=== PATIENT | female | born 1955 | race Caucasian/White ===

== ENCOUNTER 2019-12-30 20:24 | Emergency (ER) | payer OTHER ==
[~2019-12-30] VITALS: Ht 165.1 cm; Wt 83.9 kg
--- OUTSIDE RECORDS SUMMARY | ~2019-12-30 | XMS | Encounter Summary ---
Demographics + + + | Address | [address] | | | [place] [address] | + + + | Home Phone | | + + + | Preferred Language | Unknown | + + + | Marital Status | Single | + + + | Oriental Orthodox Affiliation | NRP | + + + | Race | White | + + + | Ethnic Group | Not or | + + + Author + + + | Organization | Unknown | + + + | Address | Unknown | + + + | Phone | Unavailable | + + + Support + + +---------+ + | Name | Relationship | Address | Phone | + + +---------+ + | Kiara Jaimes | ECON | Unknown | | + + +---------+ + Care Team Providers + +------+ + | Care Assembler Bicycle Name | Role | Phone | + +------+ + PCP | Unavailable | + +------+ + Encounter Details +--------+ + + + + | Date | Type | Department | Care Team | Description | +--------+ + + + + | 04/08/ | Discharge | | Summary, Discharge | D/C Summary ODDS | | 2001 | Summary-Tra | | | | | | nscribed | | | | +--------+ + + + + Social History + +-------+ +--------+------+ | Tobacco Use | Types | Packs/Day | Years | Date | | | | | Used | | + +-------+ +--------+------+ | Never Assessed | | | | | + +-------+ +--------+------+ + + + | Sex Assigned at | Date Recorded | | | | + + + | Not on file | | + + + + + + + | Job Start Date | Occupation | Industry | + + + + | Not on file | Not on file | Not on file | + + + + + + + + | Travel History | Travel Start | Travel End | + + + + + + | No recent travel history available. | + + documented as of this encounter Discharge Summaries Interface, Road Production General Manager In - 12/13/2005 3:11 AM PDT [facility] [address] [address] [facility] MEDICAL SUMMARY OF HOSPITALIZATION Med Rec No: [id number] Admission Date: 04/05/2002 Name: Helen Mckeon Discharge Date: 04/08/2002 ATTENDING PHYSICIAN:Mika Mitchell M.D. PRINCIPAL FINAL DIAGNOSIS: Herniation of Margarette fundoplication. ADDITIONAL DIAGNOSES: 1. Noninsulin dependent diabetes mellitus. 2. Dysphasia. 3. Gastroesophageal reflux disease (GERD) status post laproscopic Margarette fundoplication in May 2001. PRINCIPAL PROCEDURE: Redo laparoscopic Margarette fundoplication. REASON FOR ADMISSION: The patient is a 46-year-old white female who underwent a laparoscopic Margarette fundoplication in May 2001. She had good results from this operation until she underwent a chiropractic maneuver in January when she began to feel sharp upper gastric pain which was short lived. However after this pain she began having maldysplasia and chest tightness after meals. Work up by her primary care physician showed that she had an intact fundoplication however it had herniated up into her chest. She presented to our clinic to have her fundoplication reconstructed and redone. HOSPITAL COURSE: The patient was admitted on the day of surgery and underwent the above stated procedure without any complications. Please see operative report of April 05, 2002 for full details. Postoperatively she was able to be transferred directly to the [facility]varez where her postoperative course was very benign. She was instructed on a post Margarette diet and was understanding and compliant with this. While in house she was able to tolerate a full liquid diet, ambulate, and her postoperative ileus resolved completely before leaving for home. Her only complaint was some mild headache and some nausea, which was well controlled with medication. While in house her CBGs remained in the normal range on an insulin sliding scale. She was discharged home on postoperative day number three in good condition. She will follow up in Mika Mitchell M.D. clinic in two weeks. DISPOSITION: Home. CONDITION ON DISCHARGE: Good. DISCHARGE MEDICATIONS: 1. Oxycodone elixir 5 mg per 5 mL 5-15 mL q 4 hours p.r.n., dispensed 500 mL. 2. Colace elixir 200 mg p.o. b.i.d., dispensed #120. 3. She is to resume all her previous home medications. DIET: Margarette diet while in the hospital by her dietitian. ACTIVITY: No heaving lifting for six weeks, no lifting anything greater than 10 pounds. FOLLOW UP CARE: The patient is to follow up in general surgery clinic with Mika iMtchell M.D. in two weeks. Kylah Kinney M.D. Mika Mitchell M.D. RM:[id number] C: 05/07/2002 [facility] cc: JOYCE LEON MD [address] [place] [address] [id number] signed by Interface, Road Production General Manager In at 12/13/2005 3:11 AM [facility] Plan of Treatment +--------+ + + + + | Date | Type | Specialty | Care Team | Description | +--------+ + + + + | 11/27/ | Video/TeleH | Otolaryngology | Erik Lambert | | | 2020 | ealth-Sched | | MD Jacoby [address] | | | | uled | | [address] | | | | | | [place], [place] | | | | | | [address] | | | | | | [phone] | | | | | | | | +--------+ + + + + documented as of this encounter Visit Diagnoses Not on filedocumented in this encounter"
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
--- OUTSIDE RECORDS SUMMARY | ~2019-12-30 | XMS | Encounter Summary ---
Demographics + + + | Address | [address] | | | [place] [address] | + + + | Home Phone | | + + + | Preferred Language | Unknown | + + + | Marital Status | Single | + + + | Gnosticism Affiliation | NRP | + + + | Race | White | + + + | Ethnic Group | Not or | + + + Author + + + | Author | [facility] | + + + | Organization | [facility] | + + + | Address | Unknown | + + + | Phone | Unavailable | + + + Support + + +---------+ + | Name | Relationship | Address | Phone | + + +---------+ + | Kiara Jaimes | ECON | Unknown | | + + +---------+ + Care Team Providers + +------+ + | Care Stencil Sprayer Name | Role | Phone | + +------+ + | Meagan Ayala MD | PCP | | + +------+ + Reason for Visit AUTH/CERT +--------+--------+ + + + + | Status | Reason | Specialty | Diagnoses / | Referred By | Referred To | | | | | Procedures | Contact | Contact | +--------+--------+ + + + + | | | | | | | +--------+--------+ + + + + Encounter Details +--------+ + + + + | Date | Type | Department | Care Team | Description | +--------+ + + + + | 02/07/ | Anesthesia | [facility] | Lencho Peralta, | | | 2019 | Event | [facility] | MD Abdon Schwarz | | | | | and Healing Surgery | [address] | | | | | Center Admitting | [place], [place] | | | | | Desk Located on the | [address] | | | | | 4th floor [address] | [phone] | | | | | [address] [place], | | | | | | [place] [address] | Ede Kiran, | | | | | | LOADER ENGINEER [address] | | | | | | [address] | | | | | | [place], [place] | | | | | | [address] | | | | | | [phone] | | | | | | | | +--------+ + + + + Anesthesia Record + + + + + | Procedure Name | Responsible | Anesthesia Start | Anesthesia Stop Time | | | Anesthesiologist | Time | | + + + + + | BILATERAL MAXILLARY | Lencho Peralta MD | 02/07/19 0838 | 02/07/19 1036 | | ANTROSTOMY WITH | | | | | TISSUE REMOVAL, | | | | | BILATERAL TOTAL | | | | | ETHMOIDECTOMY, | | | | | BILATERAL FRONTAL | | | | | SINUSOTOMY, | | | | | BILATERAL | | | | | SPHENOIDOTOMY WITH | | | | | TISSUE REMOVAL, | | | | | BILATERAL MIDDLE | | | | | TURBINATE RESECTION, | | | | | IMAGE | | | | | GUIDANCE-FUSION | | | | | (Bilateral ) | | | | + + + + + +----+---+ + + | Da | T | Event | Comment | | te | i | | | | | m | | | | | e | | | +----+---+ + + | 09 | 0 | Eq Check | Anesthesia machine checked Equipment verified | | /2 | 7 | | | | 3/ | 3 | | | | 20 | 3 | | | | 19 | | | | +----+---+ + + | | 0 | Pt. Check | Prior to anesthesia start, pt. Identified, examined, chart | | | 8 | | reviewed, PARQ held, anesthetic plan made or approved by | | | 0 | | attending anesthesiologist. NPO status confirmed as appropriate | | | 3 | | for procedure Preoperative evaluation: unchanged | +----+---+ + + | | 0 | An Start | | | | 8 | | | | | 3 | | | | | 8 | | | +----+---+ + + | | 0 | An Start | | | | 8 | Data | | | | 4 | | | | | 1 | | | +----+---+ + + | | 0 | Vitals | Monitors applied Vital signs checked Patient ready for anesthesia | | | 8 | Checked | | | | 4 | | | | | 6 | | | +----+---+ + + | | 0 | ETT | | | | 8 | | | | | 5 | | | | | 0 | | | +----+---+ + + | | 0 | Ready | | | | 8 | | | | | 5 | | | | | 1 | | | +----+---+ + + | | 0 | Local | | | | 8 | Anesthetic | | | | 5 | by Surgeon | | | | 5 | | | +----+---+ + + | | 0 | Abx held | Contraindicated, or not indicated for this procedure, or already | | | 8 | Medical or | receiving antibiotics | | | 5 | Surgical | | | | 7 | Reason | | +----+---+ + + | | 0 | An Data Art | Poor EtCO2 waveform. Moved sample line proximal to the HME, now | | | 9 | | with improved waveform. | | | 0 | | | | | 3 | | | +----+---+ + + | | 0 | Timeout | | | | 9 | | | | | 0 | | | | | 4 | | | +----+---+ + + | | 0 | Incision | | | | 9 | | | | | 0 | | | | | 5 | | | +----+---+ + + | | 1 | Surgery end | | | | 0 | | | | | 2 | | | | | 4 | | | +----+---+ + + | | 1 | An Extubate | Neuromuscular function Intact. Pharynx suctioned. Patient obeys | | | 0 | | commands. Adequate pulmonary mechanics. | | | 2 | | | | | 8 | | | +----+---+ + + | | 1 | an stop | | | | 0 | data | | | | 3 | | | | | 1 | | | +----+---+ + + | | 1 | PACU Rpt | | | | 0 | Given | | | | 3 | | | | | 6 | | | +----+---+ + + | | 1 | Anesthesia | | | | 0 | End | | | | 3 | | | | | 6 | | | +----+---+ + + | | 1 | Post-Op | | | | 1 | Page | | | | 4 | | | | | 5 | | | +----+---+ + + +------+ | Meds | +------+ + + + | Name | Total | + + + | midazolam | 2 mg | + + + | fentaNYL | 100 mcg | + + + | lidocaine 2% | 60 mg | + + + | propofol (DIPRIVAN) 200 mg | 200 mg | + + + | propofol (DIPRIVAN) 200 mg | 111,408 mcg | + + + | rocuronium | 50 mg | + + + | ondansetron | 4 mg | + + + | dexamethasone | 10 mg | + + + | neostigmine | 3 mg | + + + | glycopyrrolate | 0.4 mg | + + + | lidocaine 4% LTA | 3 mL | + + + | lactated ringers IV | 600 mL | + + + + + | Name | + + | O2 FR Avance (Total Liters) | + + | N2O FR Avance (l/min) | + + | Air FR Avance (l/min) | + + | Insp Sevo | + + | Et Sevo | + + | EtN2O % | + + | Insp N2O % | + + + + | No blood administrations on file. | + + +--------+ + + + | Type | Details | Placement | Removal | +--------+ + + + | Periph | 02/07/19; Left; Hand; 22 g; | 02/07/19 0000 by | 02/07/19 1430 by | | eral | 02/07/19; 1430; Discharge | Carin Cornelius RN | Diana Toure | | IV | | | [place]cdaniels | +--------+ + + + | ETT | 02/07/19; 0856 (created via | 02/07/19 0856 by | 02/07/19 1028 by | | | procedure documentation); 7; | Lencho Peralta MD | Ede Kiran CRNA | | | Oral; Cuffed; 02/07/19; 1028 | | | +--------+ + + + documented in this encounter Social History + + + +--------+ + | Tobacco Use | Types | Packs/Day | Years | Date | | | | | Used | | + + + +--------+ + | Former Smoker | Cigarettes | | | Quit: 02/01/1989 | + + + +--------+ + + +---+---+---+ | Smokeless Tobacco: | | | | | Never Used | | | | + +---+---+---+ + + +---------+ + | Alcohol Use | Drinks/Week | oz/Week | Comments | + + +---------+ + | Not Currently | | | 1 drink per month | + + +---------+ + + + + | Sex Assigned at [...] + + documented as of this encounter Plan of Treatment +--------+ + + + + | Date | Type | Specialty | Care Team | Description | +--------+ + + + + | 11/27/ | Video/TeleH | Otolaryngology | Erik Lambert | | | 2020 | [facility] | | MD Jacoby [address] | | | | giovany | | [address] | | | | | | [place], [place] | | | | | | [address] | | | | | | [phone] | | | | | | | | +--------+ + + + + documented as of this encounter Procedures + +--------+ + + + | Procedure Name | Priori | Date/Time | Associated Diagnosis | Comments | | | ty | | | | + +--------+ + + + | ANE ETT | Routin | 02/07/2019 | | | | | e | 8:55 AM | | | | | | PDT | | | + +--------+ + + + +---+--------+ | | | | | Proced | | | ure | | | Note - | | | Fabian, | | | Corie | | | ll K, | | | MD - | | | | | | 2018 | | | 8:55 | | | AM PDT | | | | | | AIRWAY | | | | | | MANAGE | | | MENT - | | | | | | ETTInt | | | ubatio | | | n | | | Reason | | | : For | | | surgic | | | al | | | proced | | | urePos | | | itioni | | | ng: | | | Supine | | | Locati | | | on | | | Perfor | | | med:OR | | | | | | OXYGEN | | | ATIONP | | | atient | | | was | | | preoxy | | | genate | | | dNo | | | apneic | | | | | | oxygen | | | ationG | | | rade: | | | Grade | | | 1 - | | | Ventil | | | ated | | | by | | | mask | | | Manual | | | | | | in-Sobia | | | e | | | Stabil | | | izatio | | | n: | | | NoIndu | | | ction: | | | Routin | | | e, | | | withou | | | t | | | Cricoi | | | d | | | Pressu | | | reINTU | | | BATION | | | ATTEMP | | | T | | | 1Blade | | | Type: | | | | | | Warren | | | Blade | | | #: | | | 2Intub | | | ation | | | Adjunc | | | ts: w/ | | | | | | Stylet | | | Laryng | | | oscopi | | | c | | | View: | | | Grade | | | ISurgi | | | aurora | | | Airway | | | : no | | | Surgic | | | al | | | Airway | | | ETT | | | DETAIL | | | SETT | | | Type:S | | | tandar | | | d, | | | Hi-Lo | | | Cuffed | | | Intuba | | | tion | | | Type: | | | OralCu | | | ff | | | Status | | | : | | | Cuffed | | | Size: | | | 7ETT | | | secure | | | d with | | | | | | adhesi | | | ve | | | tapeDe | | | pth at | | | Lip: | | | 22 cm | | | Airway | | | Leak: | | | | | | NoCONF | | | IRMATI | | | ONNumb | | | er of | | | Attemp | | | ts: | | | 1Atrau | | | matic | | | placem | | | entPos | | | itive | | | for | | | EtCO2: | | | Wavefo | | | rm | | | capnog | | | raphyB | | | reath | | | Sounds | | | : | | | Bilate | | | ral | | | and | | | equalN | | | ARRATI | | | VEAtte | | | nding | | | was | | | physic | | | ally | | | presen | | | t for | | | the | | | critic | | | al | | | portio | | | ns of | | | the | | | proced | | | ure as | | | | | | descri | | | bed in | | | the | | | proced | | | ure | | | noteAt | | | tendin | | | g/Auth | | | orizin | | | g | | | Provid | | | er: | | | Corie | | | ll K | | | Fabian, | | | MDPerf | | | orming | | | | | | Provid | | | er: | | | Corie | | | ll K | | | Fabian, | | | MD | +---+--------+ documented in this encounter Visit Diagnoses Not on filedocumented in this encounter Administered Medications + +--------+ +-------+------+------+ | Medication Order | MAR | Action | Dose | Rate | Site | | | Action | Date | | | | + +--------+ +-------+------+------+ | dexamethasone (DECADRON) | Given | 02/08/20 | 10 mg | | | | injection INTRAPROCEDURE PRN, | | 19 8:59 | | | | | Starting Thu02/07/19 at 0859, | | AM PDT | | | | | Until Thu02/07/19 at 1031 | | | | | | + +--------+ +-------+------+------+ +---+---+ | | | +---+---+ + +-------+ +--------+---+---+ | fentaNYL (SUBLIMAZE) injection | Given | 02/08/20 | 50 mcg | | | | INTRAPROCEDURE PRN, Starting Mon | | 10:35 | | | | | 02/07/19 at 0847, Until Mon | | AM PDT | | | | | 02/07/19 at 1031 | | | | | | + +-------+ +--------+---+---+ +-------+ +--------+---+---+ | Given | 02/08/20 | 50 mcg | | | | | 19 8:47 | | | | | | AM PDT | | | | +-------+ +--------+---+---+ +---+---+ | | | +---+---+ + +-------+ +--------+---+---+ | glycopyrrolate (ROBINUL) | Given | 02/08/20 | 0.4 mg | | | | injection INTRAPROCEDURE PRN, | | 19 10:24 | | | | | Starting Thu02/07/19 at 1024, | | AM PDT | | | | | Until Thu02/07/19 at 1031 | | | | | | + +-------+ +--------+---+---+ +---+---+ | | | +---+---+ + + + +---+---+---+ | lactated ringers IV 10 mL/hr, | given by | 02/08/20 | | | | | intravenous, PROCEDURE | | 19 9:06 | | | | | CONTINUOUS, Starting 02/07/19 | anesthes | AM PDT | | | | | at 0715, Until Thu02/07/19 at | iology | | | | | | 2032 | | | | | | + + + +---+---+---+ +---------+ +---+---+---+ | New Bag | 02/08/20 | | | | | | 19 7:33 | | | | | | AM PDT | | | | +---------+ +---+---+---+ +---+---+ | | | +---+---+ + +-------+ +------+---+---+ | lidocaine (LTA) 4 % topical | Given | 02/08/20 | 3 mL | | | | solution INTRAPROCEDURE PRN, | | 19 8:50 | | | | | Starting 02/07/19 at 0850, | | AM PDT | | | | | Until 02/07/19 at 1031 | | | | | | + +-------+ +------+---+---+ +---+---+ | | | +---+---+ + +-------+ +-------+---+---+ | lidocaine PF (XYLOCAINE MPF) 20 | Given | 02/08/20 | 60 mg | | | | mg/mL (2 %) injection | | 19 8:47 | | | | | INTRAPROCEDURE PRN, Starting Mon | | AM PDT | | | | | 02/07/19 at 0847, Until Mon | | | | | | | 02/07/19 at 1031 | | | | | | + +-------+ +-------+---+---+ +---+---+ | | | +---+---+ + +-------+ +------+---+---+ | midazolam (PF) (VERSED) | Given | 02/08/20 | 2 mg | | | | injection INTRAPROCEDURE PRN, | | 19 8:38 | | | | | Starting Mon 19 at 0838, | | AM PDT | | | | | Until Thu02/07/19 at 1031 | | | | | | + +-------+ +------+---+---+ +---+---+ | | | +---+---+ + +-------+ +------+---+---+ | neostigmine (PROSTIGMIN) | Given | 02/08/20 | 3 mg | | | | intravenous, INTRAPROCEDURE PRN, | | 19 10:24 | | | | | Starting Thu02/07/19 at 1024, | | AM PDT | | | | | Until Thu02/07/19 at 1031 | | | | | | + +-------+ +------+---+---+ +---+---+ | | | +---+---+ + +-------+ +------+---+---+ | ondansetron (ZOFRAN) injection | Given | 02/08/20 | 4 mg | | | | INTRAPROCEDURE PRN, Starting Mon | | 19 10:06 | | | | | 02/07/19 at 1006, Until Mon | | AM PDT | | | | | 02/07/19 at 1031 | | | | | | + +-------+ +------+---+---+ +---+---+ | | | +---+---+ + +---------+ +--------+---+---+ | propofol (DIPRIVAN) 200 mg | New Bag | 02/08/20 | 200 mg | | | | INTRAPROCEDURE CONTINUOUS PRN, | | 19 8:47 | | | | | Starting Thu02/07/19 at 0847, | | AM PDT | | | | | Until Thu02/07/19 at 1031 | | | | | | + +---------+ +--------+---+---+ +---+---+ | | | +---+---+ + +---------+ + +---+---+ | propofol (DIPRIVAN) 200 mg | New Bag | 02/08/20 | 20 | | | | INTRAPROCEDURE CONTINUOUS PRN, | | 19 9:00 | mcg/kg/m | | | | Starting Thu02/07/19 at 0900, | | AM PDT | in | | | | Until 02/07/19 at 1031 | | | | | | + +---------+ + +---+---+ +---+---+ | | | +---+---+ + +-------+ +-------+---+---+ | rocuronium injection | Given | 02/08/20 | 50 mg | | | | INTRAPROCEDURE PRN, Starting Mon | | 19 8:47 | | | | | 02/07/19 at 0847, Until Mon | | AM PDT | | | | | 02/07/19 at 1031 | | | | | | + +-------+ +-------+---+---+ +---+---+ | | | +---+---+ documented in this encounter"
--- OUTSIDE RECORDS SUMMARY | ~2019-12-30 | XMS | Encounter Summary ---
Demographics + + + | Address | [address] | | | [place] [address] | + + + | Home Phone | | + + + | Preferred Language | Unknown | + + + | Marital Status | Single | + + + | Orthodoxy Affiliation | NRP | + + + | Race | White | + + + | Ethnic Group | Not or | + + + Author + + + | Author | [facility] | + + + | Organization | [facility] | + + + | Address | Unknown | + + + | Phone | Unavailable | + + + Support + + +---------+ + | Name | Relationship | Address | Phone | + + +---------+ + | Kiara Jaimes | ECON | Unknown | | + + +---------+ + Care Team Providers + +------+ + | Care Kier Drier Name | Role | Phone | + +------+ + | Meagan Ayala MD | PCP | | + +------+ + Reason for Visit + + + | Reason | Comments | + + + | Follow-up visit | | + + + Consultation (Routine) + +--------+ + + + + | Status | Reason | Specialty | Diagnoses / | Referred By | Referred To | | | | | Procedures | Contact | Contact | + +--------+ + + + + | Authorized | | Otolaryngolog | | [facility] | | | | y | | Epic Dept | [facility] [address] | | | | | | [address] | | | | | | | [facility] | | | | | | [facility] and | | | | | | | Healing, | | | | | | | Building [address], | | | | | | | 5th Floor | | | | | | | [place], [place] | | | | | | | [address] | | | | | | | Phone: | | | | | | | [phone] | | | | | | | Fax: | | | | | | | [phone] | + +--------+ + + + + Encounter Details +--------+---------+ + + + | Date | Type | Department | Care Team | Description | +--------+---------+ + + + | 07/05/ | Office | [facility] | Erik Lambert | Chronic pansinusitis | | 2019 | Visit | Center at [facility] [address] | [facility] [address] | (Primary Dx) | | | | [address] | [address] | | | | | for Health and | [place], [place] | | | | | Healing, [address], | [address] | | | | | [address] [place] [address] | [phone] | | | | | [place], [place] | | | | | | [address] | | | | | | [phone] | | | +--------+---------+ + + + Social History + + + +--------+ + [...] documented as of this encounter Progress Notes Kayy Cohen MD - 07/05/2019 1:15 PM PSTFormatting of this note might be different from t narinder original. [facility] HISTORY: Helen Bray is a 63 y.o. female who presents to the [facility] for fo llow up of Chronic rhinosinusitis. She is s/p revision FESS 02/07/19. She reports nasal con gestion and facial pressure have improved but still having persistent post nasal drip and co ugh. She is currently using budesonide rinses 1 mg BID. She is also taking azithromycin for muco stasis. SNOT 22: 50 Current Outpatient Medications Medication Sig acetylcysteine (NAC) 600 mg oral capsule Take 600 mg by mouth two times daily. acyclovir 200 mg oral capsule Take 400 mg by mouth once daily. ascorbic acid/collagen hydr (COLLAGEN PLUS VITAMIN C ORAL) Take 1 tablet by mouth once daily. azithromycin (ZITHROMAX) 250 mg oral tablet Take 1 tablet by mouth once daily. Budesonide 1 mg/2 mL inhalation suspension for nebulization 250mL saline mixed with 4mL budesonide daily Ca carb-Ca gluc-Mg ox-Mg gluco (CALCIUM MAGNESIUM) 500 mg calcium -250 mg oral tablet T tiffany 1 tablet by mouth once daily at bedtime. charcoal/calcium carbonate (ACTIVATED CHARCOAL-CALCIUM CAR ORAL) Take 1 tablet by mouth once daily. D-MANNOSE ORAL Take 1 tablet by mouth once daily. insulin glargine U-300 conc (TOUJEO MAX U-300 SOLOSTAR) 300 unit/mL (3 mL) subcutaneous insulin pen Inject 18 Units under the skin (SUBC) once daily. L-LYSINE ORAL Take 1 tablet by mouth once daily. Lactobac no.41/Bifidobact no.7 (PROBIOTIC-10 ORAL) Take 1 tablet by mouth once daily. liraglutide (VICTOZA 2-CHERRY) 0.6 mg/0.1 mL (18 mg/3 mL) subcutaneous pen injector Inject 1.8 mg under the skin (SUBC). losartan 25 mg oral tablet Take 25 mg by mouth once daily. LOVASTATIN ORAL Take 40 mg by mouth once daily. MAGNESIUM OXIDE ORAL Take 400 mg by mouth once daily at bedtime. methylPREDNISolone (MEDROL (CHERRY)) 4 mg oral tablets,dose pack Take 1 kit by mouth Use a s directed. Take daily with food:day 1=6 tabs,day 2=5 tabs,day 3=4 tabs,day 4=3 tabs,day 5=2 tabs,day 6=1 tab. multivitamin oral tablet Take 1 tablet by mouth once daily. omeprazole 40 mg oral capsule,delayed release(DR/EC) Take 40 mg by mouth once daily. Ad seo intern 30 to 60 minutes before meals Oregano Oil 1,500 mg oral capsule Take 1 tablet by mouth once daily. pioglitazone (ACTOS) 30 mg oral tablet Take 30 mg by mouth once daily. predniSONE 10 mg oral tablet Take 3 tablets x 4 days, 2 tablets x 4 days, 1 tablet x 4 days. Zinc 50 mg oral tablet Take 50 mg by mouth once daily. PHYSICAL EXAM: Ear, nose, and throat exam reveals a pleasant, well-developed, well-nourish ed patient, in no apparent distress. Voice quality is within normal limits. Anterior rhinos copy reveals mucosa with no significant signs of erythema or inflammation. No polyps or pur ulence are noted. External auditory canal on right is clear, TM is clear. Left EAC is filled with extruded tube and cerumen, unable to see TM. IMPRESSION/PLAN: Helen Bray is a 63 y.o. female who presents to the [facility] for follow up of Chronic rhinosinusitis. She is doing well though with persistent mucostas is and post nasal drip. Will continue budesonide rinses twice daily and azithromycin. Will a lso add Astelin for post nasal drip. PLAN: -Continue budesonide rinses BID and azithromycin -Astelin for post nasal drip -Follow up in 8 weeks Kayy Valiente MD I have personally seen and examined the patient. I have repeated all relevant portions of the history, physical exam and procedures. I have discussed the plan with the resident. Alexandro london necessary changes have been made to their note above. MEDICAL DECISION MAKING: We have taken the multiple sources of information gathered from ou r visit today and have discussed that in the perspective of a possible treatment plan. We h ave discussed options and the risks, benefits, and various alternative as outlined in Dr. Ivan mercer's note above. PROCEDURE: Diagnostic Nasal Endoscopy Anesthesia: Lidocaine 4% topical anesthetic was placed. Description of Procedure: A rigid endoscope was utilized to evaluate the sinonasal cavitie s, mucosa, sinus ostia and turbinates. Sinuses are patent, no polyps or purulence. She does have evidence of mucostasis in bilateral maxillary sinuses. We have spent at least 25 minutes time in counseling on the disease process, treatment opti ons, and ramifications. More than half of the visit was spent discussing the diagnosis, sascha tment options and prognosis. ERIK LAMBERT MD documented in th is encounter Plan of Treatment +--------+ + + + + | Date | Type | Specialty | Care Team | Description | +--------+ + + + + | 11/27/ | Video/TeleH | Otolaryngology | Erik Lambert | | | 2020 | [facility] | | MD Jacoby [address] | | | | uled | | [address] | | | | | | [place], [place] | | | | | | [address] | | | | | | [phone] | | | | | | | | +--------+ + + + + documented as of this encounter Procedures + +--------+ + + + | Procedure Name | Priori | Date/Time | Associated Diagnosis | Comments | | | ty | | | | + +--------+ + + + | FL NASAL | Routin | 07/06/2019 | Chronic | | | ENDOSCOPY,DX | e | 6:59 AM | pansinusitis | | | | | PST | | | + +--------+ + + + documented in this encounter Visit Diagnoses + + | Diagnosis | + + | Chronic pansinusitis - Primary Other chronic sinusitis | + + documented in this encounter"
--- OUTSIDE RECORDS SUMMARY | ~2019-12-30 | XMS | Encounter Summary ---
Demographics + + + | Address | [address] | | | [place] [address] | + + + | Home Phone | | + + + | Preferred Language | Unknown | + + + | Marital Status | Single | + + + | Anabaptist Affiliation | NRP | + + + | Race | White | + + + | Ethnic Group | Not or | + + + Author + + + | Author | [facility] | + + + | Organization | [facility] | + + + | Address | Unknown | + + + | Phone | Unavailable | + + + Support + + +---------+ + | Name | Relationship | Address | Phone | + + +---------+ + | Kiara Jaimes | ECON | Unknown | | + + +---------+ + Care Team Providers + +------+ + | Care Event Set Up Specialist Name | Role | Phone | + +------+ + | Meagan Ayala MD | PCP | | + +------+ + Encounter Details +--------+ + + + + | Date | Type | Department | Care Team | Description | +--------+ + + + + | 07/01/ | Outside | UNKNOWN DEPARTMENT | Other, Faculty | | | 2018 | Records | [address] | [phone] | | | | | [address] | | | | | | [place], [place] | | | | | | [address] | | | +--------+ + + + [...] Erik Lambert | | | 2020 | [facility] | | MD Jacoby [address] | | | | [address] | | [address] | | | | | | [place], [place] | | | | | | [address] | | | | | | [phone] | | | | | | | | +--------+ + + + + documented as of this encounter Procedures + +--------+ + + + | Procedure Name | Priori | Date/Time | Associated Diagnosis | Comments | | | ty | | | | + +--------+ + + + | OUTSIDE RADIOLOGY - | | 07/01/2017 | | Results for this | | CT | | 12:00 AM | | procedure are in the | | | | PST | | results section. | + +--------+ + + + documented in this encounter Results OUTSIDE RADIOLOGY - CT (07/01/2017 12:00 AM PST) + + + | Narrative | Performed At | + + + | | | + + + documented in this encounter Visit Diagnoses Not on filedocumented in this encounter"
--- OUTSIDE RECORDS SUMMARY | ~2019-12-30 | XMS | Encounter Summary ---
Demographics + + + | Address | [address] | | | [place] [address] | + + + | Home Phone | | + + + | Preferred Language | Unknown | + + + | Marital Status | Single | + + + | Presybeterian Affiliation | NRP | + + + [...] Team Providers + +------+ + | Care Drywall Contractor Name | Role | Phone | + +------+ + | Meagan Ayala MD | [place] | | + +------+ + Encounter Details +--------+--------+ + + + | Date | Type | Department | Care Team | Description | +--------+--------+ + + + | 04/26/ | Travel | | | | | 2019 | | | | | +--------+--------+ + + + Social History + + [...] 2020 | [facility] | | MD Jacoby [address] | | | | [address] | | [address] | | | | | | [place], [place] | | | | | | [address] | | | | | | [phone] | | | | | | | | +--------+ + + + + documented as of this encounter Visit Diagnoses Not on filedocumented in this encounter"
--- OUTSIDE RECORDS SUMMARY | ~2019-12-30 | XMS | Encounter Summary ---
Demographics + + + | Address | [address] | | | [place] [address] | + + + | Home Phone | | + + + | Preferred Language | Unknown | + + + | Marital Status | Single | + + + | Mormon Affiliation | NRP | + + + [...] Team Providers + +------+ + | Care Early Childhood Education Worker Name | Role | Phone | + +------+ + PCP | Unavailable | + +------+ + Encounter Details +--------+ + + + + | Date | Type | Department | Care Team | Description | +--------+ + + + + | 02/15/ | Office | | Note, Outpatient | Progress Note | | 2002 | Visit-Trans | | Clinic | | | | cribed | | | | +--------+ + + [...] documented as of this encounter Progress Notes Interface, Inclusion Specialist In - 10/31/2005 1:10 AM PDTClinic Date: 02/15/2003 Clinic: [facility] Subjective: Helen is a 47-year-old female who underwent a laparoscopic Margarette fundoplication back in June 2001 which unfortunately developed recurrent symptoms of reflux and herniation above the diaphragm. She underwent a revision of her fundoplication back in March 2002. Postoperatively, she complained of excessive bloating and had abdominal discomfort for which she was tried on erythromycin. This initially helped for about 1 to 2 months but eventually lost its effectiveness, and she has since stopped taking that. She comes back to clinic for follow up secondary to continued fullness and swelling in her neck which she experiences throughout the day. She complains of intermittent abdominal discomfort and pain. She does have intermittent symptoms of constipation. She does have diabetes as she has had for about 15 years, controlled on oral medication. She had an upper GI that was done on February 12, 2003, which showed no evidence of reflux. There was incidental finding of a 2-cm duodenal diverticulum from the second portion of the duodenum. There was no evidence of mucosal abnormality of the stomach and no suggestion of ulceration was noted. Physical Examination General: She is a well-nourished and well-developed female in no apparent distress. Cardiovascular: Regular rate and rhythm with no rubs, murmurs, or gallops. Pulmonary: Clear to auscultation bilaterally. Abdomen: Soft and nontender. Incisions are well healed. There is a small scar nodule beneath her subxiphoid incision. Extremities: No clubbing, cyanosis, or edema. Full range of motion. Assessment and Plan: This is a 47-year-old female with status post redo laparoscopic Margarette fundoplication with continued upper GI symptoms including fullness and swelling of her neck and intermittent abdominal discomfort and pain. Given her extensive history of diabetes, it is felt that gastroparesis could contribute to her symptoms. She was given a prescription of Reglan. She was told to try Reglan for about 2 weeks to see if that improves her symptoms. If her symptoms do not improve, she is to call the clinic and a trial of Zelnorm will be given. For her esophageal fullness and swelling sensation that she feels, a modified barium swallow will be ordered to evaluate her swallowing. It was discussed with the patient the possibility of needing serial dilation of her esophagus and also possible future history of pyloroplasty versus revision of her Margarette fundoplication through a partial wrap Margarette. This option is of course a possibility in the future if she fails medical management. The patient also states that she has anemia that was found by her primary care physician. This anemia of course needs to be worked up with a possible need for endoscopy to evaluate for gastritis or ulcers. Her upper GI series however did not notice any obvious stomach mucosal abnormalities or ulcers. Suzette Scanlon M.D. Mika Mitchell M.D. / HS [id number] / [id number] / [id number] / [id number] cc: Rosendo Lang M.D. [facility] [address] [place] [place] [address] [facility] [address] [facility] [place] [id number] signed by Interface, Inclusion Specialist In at 10/31/2005 1:10 AM PDTdocumented in this encounter Plan of Treatment +--------+ + + + + | Date | Type | Specialty | Care Team | Description | +--------+ + + + + | 11/27/ | Video/TeleH | Otolaryngology | Erik Lambert | | | 2020 | ana-Sched | | MD Jacoby [address] | | | | uled | | [address] | | | | | | [place], [place] | | | | | | [address] | | | | | | [phone] | | | | | | | | +--------+ + + + + documented as of this encounter Visit Diagnoses Not on filedocumented in this encounter"
--- OUTSIDE RECORDS SUMMARY | ~2019-12-30 | XMS | Encounter Summary ---
Demographics + + + | Address | [address] | | | [place] [address] | + + + | Home Phone | | + + + | Preferred Language | Unknown | + + + | Marital Status | Single | + + + | Adventist Affiliation | NRP | + + + [...] Team Providers + +------+ + | Care Machine Lead Burner Name | Role | Phone | + +------+ + PCP | Unavailable | + +------+ + Encounter Details +--------+ + + + + | Date | Type | Department | Care Team | Description | +--------+ + + + + | 03/03/ | Office | | Note, Outpatient | [...] as of this encounter Progress Notes Interface, Showcase Trimmer In - 10/31/2005 1:10 AM PDTClinic Date: 03/03/2003 Clinic: [facility] Subjective: Ms. Mckeon is a 47-year-old woman who has undergone a fundoplication approximately 2 years ago and a revision about 11 months ago. She reports a persistent globus sensation. She has no complaints of difficulty with swallowing. She has no complaints or regurgitation or reflux. She reports a consistent feeling of something in her throat, her throat being swollen. She does not wake up in the middle of the night coughing nor has any complaints of poor esophageal motility. She underwent an upper GI in January 2003. There was no reflux noted at this exam in January 2003. Modified Barium Swallow: The patient was viewed while standing in the anterior/posterior position. She was given thin and thick liquid barium, thick purees, as well as fruit cocktail, all impregnated with barium. Oral Phase: Good bolus manipulation with anterior to posterior transit timely. Pharyngeal Phase: The patient piecemeal swallows and allows some part of the bolus to transcend into the pharynx prior to initiating the pharyngeal phase. There is no penetration or aspiration noted on any texture consistency. Prompt initiation of the pharyngeal phase with good pharyngeal contraction, laryngeal elevation, and epiglottic deflection, all appeared within normal limits. There is prompt opening of the cricopharyngeus and transcend to the esophagus. It does appear to be elongated cricopharyngeus muscle; however, it relaxes completely, and there does not appear to be any spasm or stenosis present. During challenging activities, the patient swallowed very well. She had no signs or symptoms of dysphagia. Assessment and Plan: The patient has normal oropharyngeal swallow. There does not appear to be any dysphagia. There were no episodes of penetration or aspiration on any texture consistency given. This does not explain the patient's globus sensation. The patient does not have any vocal complaints nor does she have any frequent throat clearing or poor vocal technique that could contribute to a globus sensation. We are at a loss to explain this, and we did show the results of this examination, and the patient was relieved that she had a normal modified barium swallow, and we can proceed with her evaluation as her primary care physician recommends to further evaluate her foreign body sensation. There are no plans to follow up with this patient at this time. The patient is to continue her regular diet. Bibi Aguila, Ph.D., ANGELO-BOWLING BALL MARKER JOCELYN / HS [id number] / [id number] / [id number] / [id number] Tdocumented in this encounter Plan of Treatment +--------+ + + + + | Date | Type | Specialty | Care Team | Description | +--------+ + + + + | 11/27/ | Video/TeleH | Otolaryngology | Erik Lambert | | | 2020 | anah-Sched | | MD Jacoby [address] | | | | giovany | | [address] | | | | | | [place], [place] | | | | | | [address] | | | | | | [phone] | | | | | | | | +--------+ + + + + documented as of this encounter Visit Diagnoses Not on filedocumented in this encounter"
--- OUTSIDE RECORDS SUMMARY | ~2019-12-30 | XMS | Encounter Summary ---
Demographics + + + | Address | [address] | | | [place] [address] | + + + | Home Phone | | + + + | Preferred Language | Unknown | + + + | Marital Status | Single | + + + | Methodist Affiliation | NRP | + + + [...] Team Providers + +------+ + | Care Hotel Dining Room Cashier Name | Role | Phone | + [...] as of this encounter Progress Notes Interface, Mining Technician In - 10/31/2005 1:10 AM PDTClinic Date: 03/03/2003 Clinic: [facility] Subjective: Ms. Mckeon [...] continue her regular diet. Bibi Aguila, Ph.D., ANGELO-MERCHANDISING STOCK ASSOCIATE JOCELYN / HS [id number] / [id number] / [id number] / [id number] Tdocumented in this encounter Plan of Treatment +--------+ + + + + | Date | Type | Specialty | Care Team | Description | +--------+ + + + + | 11/27/ | Video/TeleH | Otolaryngology | Erik Lambert | | | 2020 | anah-Sched | | MD Jacoby [address] | | | | giovany | | [address] | | | | | | [place], [place] | | | | | | [address] | | | | | | [phone] | | | | | | | | +--------+ + + + + documented as of this encounter Visit Diagnoses Not on filedocumented in this encounter"
--- OUTSIDE RECORDS SUMMARY | ~2019-12-30 | XMS | Encounter Summary ---
Demographics + + + | Address | [address] | | | [place] [address] | + + + | Home Phone | | + + + | Preferred Language | Unknown | + + + | Marital Status | Single | + + + | Hoahaoism Affiliation | NRP | + + + [...] Team Providers + +------+ + | Care Cyanide Furnace Operator Name | Role | Phone | + +------+ + PCP | Unavailable | + +------+ + Encounter Details +--------+ + + + + | Date | Type | Department | Care Team | Description | +--------+ + + + + | 04/07/ | Results | | Kylah Kinney, | | | 2001 | Only | | [address] | | | | | | [address] | | | | | | [place] [address] | | | | | | [phone] | | +--------+ + + + + [...] Erik Lambert | | | 2020 | marcus-Sched | | MD Jacoby [address] | | | | giovany | | [address] | | | | | | [place], [place] | | | | | | [address] | | | | | | [phone] | | | | | | | | +--------+ + + + + documented as of this encounter Procedures + +--------+ + + + | Procedure Name | Priori | Date/Time | Associated Diagnosis | Comments | | | ty | | | | + +--------+ + + + | BASIC METABOLIC SET | Routin | 04/07/2002 | | Results for this | | (NA, K, CL, TCO2, | e | 8:40 AM | | procedure are in the | | BUN, CR, GLU, CA) | | PST | | results section. | + +--------+ + + + | PHOSPHORUS, PLASMA | Routin | 04/07/2002 | | Results for this | | | e | 8:40 AM | | procedure are in the | | | | PST | | results section. | + +--------+ + + + | MAGNESIUM, PLASMA | Routin | 04/07/2002 | | Results for this | | | e | 8:40 AM | | procedure are in the | | | | PST | | results section. | + +--------+ + + + documented in this encounter Results BASIC METABOLIC SET (04/07/2002 8:40 AM PST) + +---------+ + + + | Component | Value | Ref Range | Performed | Pathologist | | | | | At | Signature | + +---------+ + + + | GLUCOSE, | 177 (H) | 65 - 110 mg/dL | [facility] | | | PLASMA | | | DEPARTMENT | | | (LAB) | | | OF | | | | | | PATHOLOGY | | + +---------+ + + + | BUN, PLASMA | 5 (L) | 6 - 20 mg/dL | [facility] | | | (LAB) | | | DEPARTMENT | | | | | | OF | | | | | | PATHOLOGY | | + +---------+ + + + | CREATININE | 0.9 | 0.6 - 1.1 mg/dL | [facility] | | | PLASMA | | | DEPARTMENT | | | (LAB) | | | OF | | | | | | PATHOLOGY | | + +---------+ + + + | SODIUM, | 134 (L) | 136 - 145 | [facility] | | | PLASMA | | mmol/L | DEPARTMENT | | | (LAB) | | | OF | | | | | | PATHOLOGY | | + +---------+ + + + | POTASSIUM, | 3.4 (L) | 3.5 - 5.1 | [facility] | | | PLASMA | | mmol/L | DEPARTMENT | | | (LAB) | | | OF | | | | | | PATHOLOGY | | + +---------+ + + + | CHLORIDE, | 100 | 98 - 107 mmol/L | [facility] | | | PLASMA | | | DEPARTMENT | | | (LAB) | | | OF | | | | | | PATHOLOGY | | + +---------+ + + + | TOTAL CO2, | 28 | 23 - 29 mmol/L | [facility] | | | PLASMA | | | DEPARTMENT | | | (LAB) | | | OF | | | | | | PATHOLOGY | | + +---------+ + + + | CALCIUM, | 8.5 | 8.5 - 10.5 | [facility] | | | PLASMA | | mg/dL | DEPARTMENT | | | (LAB) | | | OF | | | | | | PATHOLOGY | | + +---------+ + + + + + | Specimen | + + | | + + + + + + + | Performing | Address | City/State/Zipcode | Phone Number | | Organization | | | | + + + + + | [facility] | [address] | [place] [address] | | | PATHOLOGY | [address] | | | + + + + + | [facility] | [address] | [place] [address] | | | PATHOLOGY | [address] | | | + + + + + MAGNESIUM, PLASMA (04/07/2002 8:40 AM PST) + +---------+ + + + | Component | Value | Ref Range | Performed | Pathologist | | | | | At | Signature | + +---------+ + + + | MAGNESIUM,P | 1.7 (L) | 1.8 - 2.5 mg/dL | [facility] | | | LASMA | | | DEPARTMENT | | | | | | OF | | | | | | PATHOLOGY | | + +---------+ + + + + + | Specimen | + + | | + + + + + + + | Performing | Address | City/State/Zipcode | Phone Number | | Organization | | | | + + + + + | [facility] | [address] | [place] [address] | | | PATHOLOGY | [address] | | | + + + + + | [facility] | [address] | [place] [address] | | | PATHOLOGY | [address] | | | + + + + + PHOSPHORUS, PLASMA (04/07/2002 8:40 AM PST) + +-------+ + + + | Component | Value | Ref Range | Performed | Pathologist | | | | | At | Signature | + +-------+ + + + | PHOSPHORUS, | 2.7 | 2.4 - 4.7 mg/dL | [facility] | | | PLASMA | | | DEPARTMENT | | | (LAB) | | | OF | | | | | | PATHOLOGY | | + +-------+ + + + + + | Specimen | + + | | + + + + + + + | Performing | Address | City/State/Zipcode | Phone Number | | Organization | | | | + + + + + | [facility] | [address] | [place] [address] | | | PATHOLOGY | [address] | | | + + + + + | [facility] DE[facility] | [address] | [place] [address] | | | PATHOLOGY | [address] | | | + + + + + documented in this encounter Visit Diagnoses Not on filedocumented in this encounter"
--- OUTSIDE RECORDS SUMMARY | ~2019-12-30 | XMS | Encounter Summary ---
Demographics + + + | Address | [address] | | | [place] [address] | + + + | Home Phone | | + + + | Preferred Language | Unknown | + + + | Marital Status | Single | + + + | Synagogue Affiliation | NRP | + + + | Race | White | + + + | Ethnic Group | Not or | + + + Author + + + | Author | [facility] | + + + | Organization | [facility] | + + + | Address | Unknown | + + + | Phone | Unavailable | + + + Support + + +---------+ + | Name | Relationship | Address | Phone | + + +---------+ + | Kiara Jaimes | ECON | Unknown | | + + +---------+ + Care Team Providers + +------+ + | Care Food Specialist Name | Role | Phone | + +------+ + PCP | Unavailable | + +------+ + Encounter Details +--------+ + + + + | Date | Type | Department | Care Team | Description | +--------+ + + + + | 08/04/ | Mid Level Business Analyst | Pulmonary & | Lavinia Stephen, | Dyspnea, unspecified | | 2019 | | Critical Care | ANP [address] | type (Primary Dx) | | | | Medicine at | [facility] | | | | | [facility] | [place], [place] | | | | | [address] | [address] | | | | | [address] [facility] | [phone] | | | | | Pavilion, 3rd Floor | | | | | | [place], [place] | | | | | | [address] | | | | | | [phone] | | | +--------+ + + + [...] 2020 | ealth-Sched | | MD Jacoby [address] | | | | giovany | | [address] | | | | | | [facility], [place] | | | | | | [address] | | | | | | [phone] | | | | | | | | +--------+ + + + + + +---------+--------+ + + | Name | Type | Priori | Associated Diagnoses | Order Schedule | | | | ty | | | + +---------+--------+ + + | X-RAY CHEST 2 VIEW | Imaging | Routin | Dyspnea, | Expected: 11/05/2018 | | | | e | unspecified type | (Approximate), | | | | | | Expires: 02/06/2020 | + +---------+--------+ + + documented as of this encounter Results SPIROMETRY BEFORE / AFTER BRONCHODIL, PULM FUNCTION LAB (12/22/2018 8:04 AM PDT) + + + + + + | Component | Value | Ref Range | Performed | Pathologist | | | | | At | Signature | + + + + + + | PULMONARY | Site: [facility] and | | [facility] | | | INTERPRETAT | [facility] | | SPECIAL | | | ION | [facility] | | DIAGNOSTICS | | | | Rd,[place], [place], | | - | | | | [address]TU: [id number] | | PULMONARY | | | | Name: HELEN SHAH | | FUNCTION | | | | MVisit Date: 12/22/2018 | | | | | | Second ID: | | | | | | [id number]: | | | | | | Chele Tillman: 63 | | | | | | : 1955 Sex: | | | | | | Female Race: | | | | | | CaucasianHeight: 163.50 | | | | | | Cms Weight: 85.00 | | | | | | Kgs BSA: 1.91Order | | | | | | IDs: [id number] | | | | | | Test(s): <SPIROMETRY | | | | | | BEFORE / AFTER | | | | | | BRONCHODIL>Diagnosis: | | | | | | R06.9 Other | | | | | | DyspneaDyspnea: After | | | | | | any exertion Cough: | | | | | | Productive Wheeze: | | | | | | RareTbco Prod: Cigarette | | | | | | Yrs Smk: 15.0 | | | | | | Pks/Day: 1.0 Yrs | | | | | | Quit: 30.0Post Test | | | | | | Comments: Patient height | | | | | | and weight reviewed. | | | | | | Good patient effort | | | | | | &cooperation. The | | | | | | results of this test | | | | | | meet the ATS standards | | | | | | for acceptabilityand | | | | | | repeatability. First | | | | | | PFTs. Cough with some | | | | | | efforts.Review Status: | | | | | | Completed+Posted+Locked | | | | | | | | | | | | | | | | | | Pre-Bronch | | | | | | Post-Bronch | | | | | | | | | | | | Pred | | | | | | Actual %Pred Actual | | | | | | %ChngSPIROMETRYFVC (L) | | | | | | | | | | | | 3.29 | | | | | | 2.53 76 2.47 | | | | | | -2FEV1 (L) | | | | | | | | | | | | 2.53 2.16 85 | | | | | | 2.23 | | | | | | 3FEV1/FVC (%) | | | | | | | | | | | | 78 85 109 | | | | | | 90 5FEF 25% | | | | | | (L/sec) | | | | | | 4.96 5.45 | | | | | | 109 5.69 | | | | | | 4FEF 50% (L/sec) | | | | | | | | | | | | 3.56 4.23 118 | | | | | | 4.74 11FEF 75% | | | | | | (L/sec) | | | | | | 1.16 0.91 | | | | | | 78 1.26 | | | | | | 37FEF 25-75% (L/sec) | | | | | | 2.27 | | | | | | 2.80 123 3.40 | | | | | | 21FEF Max (L/sec) | | | | | | | | | | | | 6.22 6.43 103 | | | | | | 6.73 4FIVC | | | | | | (L) | | | | | | | | | | | | 2.44 | | | | | | 2.47 1FIF 50% | | | | | | (L/sec) | | | | | | 4.61 2.37 | | | | | | 51 3.00 | | | | | | 26FIF Max (L/sec) | | | | | | | | | | | | 2.70 | | | | | | 3.43 | | | | | | 27Expiratory Time (sec) | | | | | | | | | | | | 6.12 | | | | | | 5.63 -8Back | | | | | | Extrap Vol (L) | | | | | | | | | | | | 0.09 0.11 | | | | | | 29Time To FEFmax | | | | | | (sec) | | | | | | 0.074 | | | | | | 0.114 54LUNG | | | | | | VOLUMESSVC (L) | | | | | | | | | | | | 3.06 2.46 | | | | | | 80IC (L) | | | | | | | | | | | | 2.21 2.11 95ERV | | | | | | (L) | | | | | | 0.85 | | | | | | 0.35 40FRC | | | | | | (pl) (L) | | | | | | 2.90 | | | | | | 1.83 63RV (Pleth) | | | | | | (L) | | | | | | 2.05 1.49 | | | | | | 72TLC (Pleth) (L) | | | | | | | | | | | | 5.11 3.94 | | | | | | 77RV/TLC (Pleth) (%) | | | | | | 40 | | | | | | 38 | | | | | | 94DIFFUSIONDLCOunc | | | | | | (ml/min/mmHg) | | | | | | 21.52 20.29 | | | | | | 94DLCOadj | | | | | | (ml/min/mmHg) | | | | | | 21.52 21.19 | | | | | | 98DL/VA | | | | | | (ml/min/mmHg/L) | | | | | | 4.21 5.75 | | | | | | 136VA (L) | | | | | | | | | | | | 5.11 3.68 | | | | | | 72BHT (sec) | | | | | | | | | | | | 10.03IVC (L) | | | | | | | | | | | | | | | | | | 2.44TLC (SB) (L) | | | | | | | | | | | | 3.83AIRWAYS | | | | | | RESISTANCEBLOOD GASESHgb | | | | | | (gm/dL) | | | | | | | | | | | | 12.1 Interpretation: | | | | | | INTERPRETATION: | | | | | | SPIROMETRY:The FEV1/FVC | | | | | | ratio and FEV1 are | | | | | | normal. The FVC is | | | | | | mildly decreased which | | | | | | issuggestive but not | | | | | | diagnostic for | | | | | | restriction. | | | | | | BRONCHODILATOR:There is | | | | | | no significant change in | | | | | | FEV1 or FVC following | | | | | | administration | | | | | | ofbronchodilator LUNG | | | | | | VOLUMES:The total lung | | | | | | capacity is mildly | | | | | | reduced which confirms | | | | | | restriction. DIFFUSING | | | | | | CAPACITY:The diffusing | | | | | | capacity is within | | | | | | normal limits. | | | | | | CONCLUSION:Mild | | | | | | restritive impaiment | | | | | | without reduction in | | | | | | diffusion capacity | | | | | | raises thepossibility of | | | | | | nonparenchymal disease. | | | | | | This interpretation | | | | | | has been electronically | | | | | | signed: Cj Quezada | | | | | | 12/26/201804:39:49 PM | | | | + + + + + + | FVC PRE | 2.53 | 3.29 L | [facility] | | | | | | SPECIAL | | | | | | DIAGNOSTICS | | | | | | - | | | | | | PULMONARY | | | | | | FUNCTION | | + + + + + + | FVC PRE | 76 | % | [facility] | | | (%REF) | | | SPECIAL | | | | | | DIAGNOSTICS | | | | | | - | | | | | | PULMONARY | | | | | | FUNCTION | | + + + + + + | FVC POST | 2.47 | 3.29 L | [facility] | | | | | | SPECIAL | | | | | | DIAGNOSTICS | | | | | | - | | | | | | PULMONARY | | | | | | FUNCTION | | + + + + + + | FVC POST | 75 | % | [facility] | | | (%REF) | | | SPECIAL | | | | | | DIAGNOSTICS | | | | | | - | | | | | | PULMONARY | | | | | | FUNCTION | | + + + + + + | FEV1 PRE | 2.16 | 2.53 L | [facility] | | | | | | SPECIAL | | | | | | DIAGNOSTICS | | | | | | - | | | | | | PULMONARY | | | | | | FUNCTION | | + + + + + + | FEV1 PRE | 85 | % | [facility] | | | (%REF) | | | SPECIAL | | | | | | DIAGNOSTICS | | | | | | - | | | | | | PULMONARY | | | | | | FUNCTION | | + + + + + + | FEV1 POST | 2.23 | 2.53 L | [facility] | | | | | | SPECIAL | | | | | | DIAGNOSTICS | | | | | | - | | | | | | PULMONARY | | | | | | FUNCTION | | + + + + + + | FEV1 POST | 87 | % | [facility] | | | (%REF) | | | SPECIAL | | | | | | DIAGNOSTICS | | | | | | - | | | | | | PULMONARY | | | | | | FUNCTION | | + + + + + + | FEV1/FVC | 85 | 78 % | [facility] | | | PRE | | | SPECIAL | | | | | | DIAGNOSTICS | | | | | | - | | | | | | PULMONARY | | | | | | FUNCTION | | + + + + + + | FEV1/FVC | 109 | % | [facility] | | | PRE (%REF) | | | SPECIAL | | | | | | DIAGNOSTICS | | | | | | - | | | | | | PULMONARY | | | | | | FUNCTION | | + + + + + + | FEV1/FVC | 90 | 78 % | [facility] | | | POST | | | SPECIAL | | | | | | DIAGNOSTICS | | | | | | - | | | | | | PULMONARY | | | | | | FUNCTION | | + + + + + + | FEV1/FVC | 115 | % | [facility] | | | POST (%REF) | | | SPECIAL | | | | | | DIAGNOSTICS | | | | | | - | | | | | | PULMONARY | | | | | | FUNCTION | | + + + + + + | PEF PRE | 6.43 | 6.22 L/sec | [facility] | | | | | | SPECIAL | | | | | | DIAGNOSTICS | | | | | | - | | | | | | PULMONARY | | | | | | FUNCTION | | + + + + + + | PEF PRE | 103 | % | [facility] | | | (%REF) | | | SPECIAL | | | | | | DIAGNOSTICS | | | | | | - | | | | | | PULMONARY | | | | | | FUNCTION | | + + + + + + | PEF POST | 6.73 | 6.22 L/sec | [facility] | | | | | | SPECIAL | | | | | | DIAGNOSTICS | | | | | | - | | | | | | PULMONARY | | | | | | FUNCTION | | + + + + + + | PEF POST | 108 | % | [facility] | | | (%REF) | | | SPECIAL | | | | | | DIAGNOSTICS | | | | | | - | | | | | | PULMONARY | | | | | | FUNCTION | | + + + + + + | JMN14-30% | 2.80 | 2.27 L/sec | [facility] | | | PRE | | | SPECIAL | | | | | | DIAGNOSTICS | | | | | | - | | | | | | PULMONARY | | | | | | FUNCTION | | + + + + + + | SCG60-17% | 123 | % | [facility] | | | PRE (%REF) | | | SPECIAL | | | | | | DIAGNOSTICS | | | | | | - | | | | | | PULMONARY | | | | | | FUNCTION | | + + + + + + | SOO14-59% | 3.40 | 2.27 L/sec | [facility] | | | POST | | | SPECIAL | | | | | | DIAGNOSTICS | | | | | | - | | | | | | PULMONARY | | | | | | FUNCTION | | + + + + + + | FGV63-87% | 149 | % | [facility] | | | POST (%REF) | | | SPECIAL | | | | | | DIAGNOSTICS | | | | | | - | | | | | | PULMONARY | | | | | | FUNCTION | | + + + + + + | FIF50% PRE | 2.37 | 4.61 L/sec | [facility] | | | | | | SPECIAL | | | | | | DIAGNOSTICS | | | | | | - | | | | | | PULMONARY | | | | | | FUNCTION | | + + + + + + | FIF50% PRE | 51 | % | [facility] | | | (%REF) | | | SPECIAL | | | | | | DIAGNOSTICS | | | | | | - | | | | | | PULMONARY | | | | | | FUNCTION | | + + + + + + | FIF50% POST | 3.00 | 4.61 L/sec | [facility] | | | | | | SPECIAL | | | | | | DIAGNOSTICS | | | | | | - | | | | | | PULMONARY | | | | | | FUNCTION | | + + + + + + | FIF50% POST | 65 | % | [facility] | | | (%REF) | | | SPECIAL | | | | | | DIAGNOSTICS | | | | | | - | | | | | | PULMONARY | | | | | | FUNCTION | | + + + + + + | VC PRE | 2.46 | 3.06 L | [facility] | | | | | | SPECIAL | | | | | | DIAGNOSTICS | | | | | | - | | | | | | PULMONARY | | | | | | FUNCTION | | + + + + + + | VC PRE | 80 | % | [facility] | | | (%REF) | | | SPECIAL | | | | | | DIAGNOSTICS | | | | | | - | | | | | | PULMONARY | | | | | | FUNCTION | | + + + + + + | IC PRE | 2.11 | 2.21 L | [facility] | | | | | | SPECIAL | | | | | | DIAGNOSTICS | | | | | | - | | | | | | PULMONARY | | | | | | FUNCTION | | + + + + + + | IC PRE | 95 | % | [facility] | | | (%REF) | | | SPECIAL | | | | | | DIAGNOSTICS | | | | | | - | | | | | | PULMONARY | | | | | | FUNCTION | | + + + + + + | ERV PRE | 0.35 | 0.85 L | [facility] | | | | | | SPECIAL | | | | | | DIAGNOSTICS | | | | | | - | | | | | | PULMONARY | | | | | | FUNCTION | | + + + + + + | ERV PRE | 40 | % | [facility] | | | (%REF) | | | SPECIAL | | | | | | DIAGNOSTICS | | | | | | - | | | | | | PULMONARY | | | | | | FUNCTION | | + + + + + + | FRC PL PRE | 1.83 | 2.90 L | [facility] | | | | | | SPECIAL | | | | | | DIAGNOSTICS | | | | | | - | | | | | | PULMONARY | | | | | | FUNCTION | | + + + + + + | FRC PL PRE | 63 | % | [facility] | | | (%REF) | | | SPECIAL | | | | | | DIAGNOSTICS | | | | | | - | | | | | | PULMONARY | | | | | | FUNCTION | | + + + + + + | RV PRE | 1.49 | 2.05 L | [facility] | | | | | | SPECIAL | | | | | | DIAGNOSTICS | | | | | | - | | | | | | PULMONARY | | | | | | FUNCTION | | + + + + + + | RV PRE | 72 | % | [facility] | | | (%REF) | | | SPECIAL | | | | | | DIAGNOSTICS | | | | | | - | | | | | | PULMONARY | | | | | | FUNCTION | | + + + + + + | TLC PRE | 3.94 | 5.11 L | [facility] | | | | | | SPECIAL | | | | | | DIAGNOSTICS | | | | | | - | | | | | | PULMONARY | | | | | | FUNCTION | | + + + + + + | TLC PRE | 77 | % | [facility] | | | (%REF) | | | SPECIAL | | | | | | DIAGNOSTICS | | | | | | - | | | | | | PULMONARY | | | | | | FUNCTION | | + + + + + + | RV/TLC PRE | 38 | 40 % | [facility] | | | | | | SPECIAL | | | | | | DIAGNOSTICS | | | | | | - | | | | | | PULMONARY | | | | | | FUNCTION | | + + + + + + | DLCO PRE | 20.29 | 21.52 | [facility] | | | | | ml/min/mmHg | SPECIAL | | | | | | DIAGNOSTICS | | | | | | - | | | | | | PULMONARY | | | | | | FUNCTION | | + + + + + + | DLCO PRE | 94 | % | [facility] | | | (%REF) | | | SPECIAL | | | | | | DIAGNOSTICS | | | | | | - | | | | | | PULMONARY | | | | | | FUNCTION | | + + + + + + | DLCO ADJ | 21.19 | 21.52 | [facility] | | | PRE | | ml/min/mmHg | SPECIAL | | | | | | DIAGNOSTICS | | | | | | - | | | | | | PULMONARY | | | | | | FUNCTION | | + + + + + + | DLCO ADJ | 98 | % | [facility] | | | PRE (%REF) | | | SPECIAL | | | | | | DIAGNOSTICS | | | | | | - | | | | | | PULMONARY | | | | | | FUNCTION | | + + + + + + | DLCO/VA ADJ | 5.75 | ml/min/mmHg/L | [facility] | | | PRE | | | SPECIAL | | | | | | DIAGNOSTICS | | | | | | - | | | | | | PULMONARY | | | | | | FUNCTION | | + + + + + + | DLCO/VA ADJ | 136 | % | [facility] | | | PRE (%REF) | | | SPECIAL | | | | | | DIAGNOSTICS | | | | | | - | | | | | | PULMONARY | | | | | | FUNCTION | | + + + + + + + + | Specimen | + + | | + + + + + | Narrative | Performed At | + + + | | | + + + + + + + + | Performing | Address | City/State/Zipcode | Phone Number | | Organization | | | | + + + + + | [facility] | [address] | [place], [place] | | | DIAGNOSTICS - | [address] | [address] | | | PULMONARY FUNCTION | | | | + + + + + documented in this encounter Visit Diagnoses + + | Diagnosis | + + | Dyspnea, unspecified type - Primary | + + documented in this encounter"
--- OUTSIDE RECORDS SUMMARY | ~2019-12-30 | XMS | Encounter Summary ---
Demographics + + + | Address | [address] | | | [place] [address] | + + + | Home Phone [...] Team Providers + +------+ + | Care Game Farm Helper Name | Role | Phone | + +------+ + | Meagan Ayala MD | [place] | | + +------+ + Encounter Details +--------+--------+ + + + | Date | Type | Department | Care Team | Description | +--------+--------+ + + + | 02/15/ | Travel | | | | | [...] 2020 | ealth-Sched | | MD Jacoby [address] | | | | gi[address]any | | [address] | | | | | | [place], [place] | | | | | | [address] | | | | | | [phone] | | | | | | | | +--------+ + + + + documented as of this encounter Visit Diagnoses Not on filedocumented in this encounter"
--- OUTSIDE RECORDS SUMMARY | ~2019-12-30 | XMS | Encounter Summary ---
Demographics + + + | Address | [address] | | | [place] [address] | + + + | Home Phone | | + + + | Preferred Language | Unknown | + + + | Marital Status | Single | + + + | Holiness Affiliation | NRP | + + + | Race | White | + + + | Ethnic Group | Not or | + + + Author + + + | Author | [facility] | + + + | Organization | [facility] | + + + | Address | Unknown | + + + | Phone | Unavailable | + + + Support + + +---------+ + | Name | Relationship | Address | Phone | + + +---------+ + | Kiara Jaimes | ECON | Unknown | | + + +---------+ + Care Team Providers + +------+ + | Care Sql Application Developer Name | Role | Phone | + +------+ + | Meagan Ayala MD | PCP | | + +------+ + Encounter Details +--------+---------+ + + + | Date | Type | Department | Care Team | Description | +--------+---------+ + + + | 02/01/ | Office | Preoperative | Renae Heaton, | Pre-op evaluation | | 2019 | Visit | Medicine Clinic at | DNP [address] | (Primary Dx); Preop | | | | [facility] | [place], [place] | examination; | | | | [address] | [address] | Hypertension, | | | | [place] for [facility] | [phone] | unspecified type; | | | | and Healing, | | Obesity, unspecified | | | | [address] | | classification, | | | | [place], [place] | | unspecified obesity | | | | [address] | | type, unspecified | | | | [phone] | | whether serious | | | | | | comorbidity present; | | | | | | Hyperlipidemia, | | | | | | unspecified | | | | | | hyperlipidemia type; | | | | | | Type 2 diabetes | | | | | | mellitus with other | | | | | | specified | | | | | | complication, | | | | | | unspecified whether | | | | | | roasterman insulin | | | | | | use ([facility]) | +--------+---------+ + + + Anesthesia Record + + + + + | Procedure Name | Responsible | Anesthesia Start | Anesthesia Stop Time | | | Anesthesiologist | Time | | + + + + + | [facility] preop | | | | + + + + + + + | No events on file. | + + +------+ | Meds | +------+ + + + No medications | on file. | + + + + + | No agents on file. | + + + + | No blood administrations on file. | + + + + | No LDAs on file. | + + documented in this encounter Social [...] + + documented as of this encounter Last Filed Vital Signs + + + + + | Vital Sign | Reading | Time Taken | Comments | + + + + + | Blood Pressure | 126/68 | 02/01/2019 9:12 AM | | | | | PDT | | + + + + + | Pulse | 67 | 02/01/2019 9:12 AM | | | | | PDT | | + + + + + | Temperature | 36.4 C (97.5 F) | 02/01/2019 9:12 AM | | | | | PDT | | + + + + + | Respiratory Rate | 18 | 02/01/2019 9:12 AM | | | | | PDT | | + + + + + | Oxygen Saturation | 99% | 02/01/2019 9:12 AM | | | | | PDT | | + + + + + | Inhaled Oxygen | - | - | | | Concentration | | | | + + + + + | Weight | 85.7 kg (189 lb) | 02/01/2019 9:12 AM | | | | | PDT | | + + + + + | Height | 163.8 cm (5' 4.5") | 02/01/2019 9:12 AM | neck: 38 cm | | | | PDT | | + + + + + | Body Mass Index | 31.94 | 02/01/2019 9:12 AM | | | | | PDT | | + + + + + documented in this encounter Patient Instructions Patient Instructions Renae Heaton DNP - 02/01/2019 9:15 AM PDT PREOPERATIVE INSTRUCTIONS Please consider having an influenza vaccination in the near future. There is no contraindic ation to having this done before your surgery. Empty stomach before surgery On the day BEFORE your surgery, drink plenty of fluids and stay well hydrated NOTHING to eat or drink after midnight the night before surgery. This includes water, coffee, candy, mints, gum. Medications Instructions On the evening before your surgery, take ALL your usual evening medications On the morning of surgery TAKE the following medications with a sip of water: Tylenol as needed Omeprazole On the morning of surgery DO NOT TAKE the following medications: Losartan Victoza Actos Vitamins, minerals, and herbal supplements One day before surgery: While still eating a normal diet, take all your usual diabetes medications including insuli n up to and including doses taken with supper If you take Lantus, NPH or Levemir (detemir) insulin at bedtime: take your usual bedtime dose On the morning of surgery: Do not take any oral diabetes medications (pills); do not take Byetta or Symlin injections If you take Lantus insulin in the morning, take 1/2 your usual dose Check your blood sugars The night before surgery. When you wake up and every 4 hours until you arrive at the hospital on the day of your proc edure. If you have low blood sugars (less than 70) while you are fasting 1. Take 4 glucose tablets 2. Wait 15 minutes, and then recheck your sugar 3. If it is still less than 70, repeat treatment until the level is over 70 4. When you get to the hospital, report what time you had a low blood sugar 5. If you do not have glucose tablets, you can drink 4 ounces of clear liquid (apple juice, karolina michael); however your surgery may be delayed a few hours. If your blood sugars are higher than 250 on the morning of surgery and you have an insulin "sliding scale" correction regimen, please follow it to correct the high blood sugar. Other medications not specifically mentioned are at your discretion as to taking or not taking on the morning of surgery. Unless otherwise directed by your surgeon, do not take any Aspirin, fish oil supplements , vitamin E or non-steroidal anti-inflammatory (NSAIDs i.e. Advil, Aleve, Ibuprofen) or herb al supplements 7 days prior to your surgery. These drugs may interfere with normal blood jeffery tting and may cause excessive bleeding and bruising during or after the surgery. If you need a pain medication for general purposes, use Tylenol as directed. OK to take it even on the morning of surgery, if needed. If you are in doubt about any medications that you are taking, please contact our office . Other Important Guidelines ? Do not shave the surgical area Do not smoke, drink alcohol or use recreational drugs for 24 hours before your surgery Watch for any change in your health condition. Let your surgeon know right away if you do not feel well. ? Do not wear makeup, perfume, lotions, deodorant, powder or hairspray. Do not wear any jewelry to the hospital. Wear loose, comfortable clothing. Leave all your valuables at home. Allow enough travel time so you re not late for your check in for surgery. ? Take a bath or shower and remember to shampoo your hair using your usual hair product bef ore your arrival at the hospital. Please remember to brush your teeth the night before and the morning of your procedure. Preventing post op complications while you are in the hospital Use an incentive spirometer or peep breathe to keep your lungs working properly an d to help prevent respiratory complications. It helps you take long, deep breaths. Use it at least once every hour while you are awake. Leg and feet exercises will maintain good circulation and help prevent blood clots in yo ur legs. Sometimes your doctor will order sequential air compression stockings. Compressed air helps the circulation in your legs. Walking and moving will help stimulate normal circulation and deep breathing. After you r surgery, your nurse may ask you to sit, stand or walk. Surgery check-in location: [address] [facility] 2, 1st Floor Lobby Surgery Check in Time: The Preoperative Medicine Clinic is not in the position to give you accurate information regarding surgical check in time. We refer you back to your surgical office regarding this important information. Going Home Your surgical team will decide when you are medically ready to go home. If you are released to go home on the same day as your procedure/surgery please note the following: You will not be able to drive yourself A responsible adult MUST escort you home. You may not drive yourself Your responsible adult can drive you or they can accompany you in a taxi, ride share (bush ch as Uber/Lyft), or public transportation. An Uber/Lyft/commercial front load driver does not count as the responsible adult who accompanies you. Certified Medical Transport can transport you after surgery as long as a competent adult is waiting for you on arrival at your destination Although not mandatory, it is highly recommended that a patient has a responsible person with you to provide overnight monitoring/support following discharge. It IS required that you have a competent person assist you and look after you on the fir st night after you have undergone regional blocks (72 hours for patients going home with reg ional block pump) If you stayed in the hospital after surgery, please discuss anticipated discharge time a nd plans with your inpatient team so that transportation plans and other going home arrangem ents can be coordinated If you have questions or concerns after you go home, call your doctor s office. If it is after office hours, call the [facility] container packer operator at [phone] and ask them to page him or h er. documented in this encounter Progress Notes Karolina Hernandez MA - 02/01/2019 9:15 AM PDTVenipuncture performed in clinic, blood sample obtained from Right antecubital site Electronically signed by Karolina Hernandez MA at 9 11:35 AM PDTBeRenae loaiza DNP - 02/01/2019 9:15 AM PDTFormatting of this note might b e different from the original. PREOPERATIVE CONSULT NOTE Author: Renae Heaton DNP Referring Physician: Erik Lambert MD Primary Care Provider: Meagan Ayala MD Reason for Consult: Preoperative evaluation and risk assessment Proposed Procedure/Date: BILATERAL MAXILLARY ANTROSTOMY WITH TISSUE REMOVAL, BILATERAL TOTA L ETHMOIDECTOMY, BILATERAL FRONTAL SINUSOTOMY, BILATERAL SPHENOIDOTOMY WITH TISSUE REMOVAL, BILATERAL MIDDLE TURBINATE RESECTION, IMAGE GUIDANCE-FUSION on 02/07/19 Proposed Procedure Location: [facility] HISTORY OF PRESENT ILLNESS: Helen Bray is a 63 y.o. female here for preoperative evalua tion of medical problems in anticipation of the above procedure. Pt has dx of Chronic pansi nusitis. Symptoms related to the diagnosis: pt reports nasal drainage, productive cough, si nus pressure, decreased taste and smell, nasal obstruction. Pt has prior sinus surgery in 2017 with significant reduction in symptoms. Pt has tried antibiotics and nasal irrigatio n. Pt is scheduled for the above procedure. Pertinent medical problems discussed during this visit: HLD -- treated with statin. GERD -- well controlled with omeprazole. Pt denies water brash. No prior hx of aspiratio n pneumonia. DM II -- treated with latus, Victoza, and Actos. Taking losartan for renal protection. C heck A1C today. Fibromyalgia --moderately controlled without medications. Takes CBD as needed. Obesity -- Body mass index is 31.94 kg/m. Perioperative cardiac risks: CAD no CHF no CVA no CKD with creatinine >2 no DM treated with insulin yes Activity: No regular exercise. Pt is able to walk 2 city blocks or up two flights of stairs . Denies ARCHER, CP, or pressure with activity. Functional Capacity: Moderate (4-10 mets) Prior complications of anesthesia: none ROS: Pulmonary: no shortness of breath no stridor no wheezing no Recent Respiratory Infection Pt. Has no asthma no COPD No dx of sleep apnea Cardiovascular: Functional Capacity: Moderate - cyanosis, palpitations and syncope no chest pain no CHF no hypertension no CAD Sx no valvular problems/murmurs no arrhythmia no Cardiac assist devices no pacemaker/ICD GI/Hepatic: no GI Bleed GERD no liver disease hepatitis hepatitis A Recovered Renal: no renal failure no electrolyte abnormalities no dialysis Endo: Diabetes: type 2 diet, oral hypoglycemics and insulin injections no Endocrine Other no H x Corticosteroid Use Neuro/Psych: No Head Conditions No Spine Conditions No Neuromuscular Conditions Psych Disorder depress ion and anxiety Musculoskeletal: no arthritis Muscular Disorders fibromyalgia Heme/Onc: Pt. has: no active bleeding no bleeding disorder No clotting disorders No hemoglobin d isorders no malignancy Infectious Disease: no MRSA no VRE Skin: no open wounds no skin conditions AutoImmune Disorders: No autoimmune disorders Current medications reviewed / updated Current Outpatient Medications Medication Sig acetylcysteine (NAC) 600 mg oral capsule Take 600 mg by mouth two times daily. acyclovir 200 mg oral capsule Take 400 mg by mouth once daily. ascorbic acid/collagen hydr (COLLAGEN PLUS VITAMIN C ORAL) Take 1 tablet by mouth once daily. Ca carb-Ca gluc-Mg ox-Mg gluco (CALCIUM MAGNESIUM) [...] mg by mouth once daily at bedtime. multivitamin oral tablet Take 1 tablet by mouth once daily. omeprazole 40 mg oral capsule,delayed release(DR/EC) Take 40 mg by mouth once daily. Ad single ending machine operator 30 to 60 minutes before meals Oregano Oil 1,500 mg oral capsule Take 1 tablet by mouth once daily. pioglitazone (ACTOS) 30 mg oral tablet Take 30 mg by mouth once daily. Zinc 50 mg oral tablet Take 50 mg by mouth once daily. Level of confidence in medication reconciliation accuracy: Medium Allergies reviewed / updated Allergies Allergen Reactions Bee Sting [Hymenoptera Allergenic Extract] Anaphylaxis and Hives [place] [Hydrocodone-Acetaminophen] Hives Past medical history reviewed / updated Past Medical History: Diagnosis Date Diabetes mellitus (HCC) HLD (hyperlipidemia) HTN (hypertension) Obesity Past surgery reviewed / updated Past Surgical History Procedure Laterality Date Appendectomy Cholecystectomy Hysterectomy Bladder sling surgery Meniscectomy of left knee Breast implants Abdominoplasty Fundoplication x 2 Egd (esophagogastroduodenoscopy) Family history reviewed / updated Social history reviewed / updated Social History Tobacco Use Smoking status: Former Smoker Types: Cigarettes Last attempt to quit: 02/01/1989 Years since quittin.0 Smokeless tobacco: Never Used Substance Use Topics Alcohol use: Not Currently Comment: 1 drink per month Drug use: Not Currently Comment: CBD/THC - weekly PHYSICAL EXAM: Last Vitals: BP 126/68 | Pulse 67 | Temp 36.4 C (97.5 F) (Oral) | Resp 18 | Ht 1.63 8 m (5' 4.5") Comment: neck: 38 cm | Wt 85.7 kg (189 lb) | SpO2 99% | BMI 31.94 kg/m | BSA 1.97 m Body mass index is 31.94 kg/m. General: Appearance: Healthy, Age appropriate and No distress LOC: Alert HEENT: Normocephalic/Atraumatic and Normal sclerae/conjunctivae Airway: Dentition: dental implants, bridges or caps present Date of last Dental Exam: < 6 months Ma llampati: 1 Mouth Opening: > 3 cm TM Distance:> 6 cm Maciel: No C-Spine ROM: Normal Neck Anatomy: Normal Neck Circumference: 38 cm. Jaw Protrusion: Normal (lower incisors go above upper incisors) Pulmonary: Respiratory: pulmonary exam normal Breath Sounds: breath sounds normal Cardiovascular: Rhythm: Regular Rate: Normal Cardiovascular comments: No M/G/R; no pedal edema Abdomen: General: Normal Body Habitus: obesity Musculoskeletal: Range of Motion: Normal range of motion Musculoskeletal Comments: No obvious deformities n oted. Neuro/Psych: Affect: Normal Cognitive Status: Normal Speech: Normal speech Strength: Normal Movement: Normal Gait Station: Normal Comments: No obvious neurologic def icits noted Skin: Color: skin color normal Temperature: Warm Other Implanted Devices: Implanted devices: None LABS & DATA REVIEWED/ORDERED Lab Results Component Value Date WBC 7.35 02/01/2019 HB 12.2 02/01/2019 HCT 38.5 02/01/2019 PLT 238 02/01/2019 MCV 96.0 02/01/2019 RDW 49.0 02/01/2019 Lab Results Component Value Date NA 134 04/07/2002 K 3.4 04/07/2002 CL 100 04/07/2002 BICARB 28 04/07/2002 BUN 5 04/07/2002 CR 0.9 04/07/2002 GLU 177 04/07/2002 CA 8.5 04/07/2002 AST 15 03/02/2002 ALT 16 03/02/2002 AP 55 03/02/2002 TBILI 0.6 03/02/2002 TP 7.0 03/02/2002 ALB 4.4 03/02/2002 Lab Results Component Value Date ABO O 04/05/2002 RH POS 04/05/2002 No results found for: A1C EKG: Not needed Echo 2019: Technically difficult study. Normal left ventricular systolic function Left ventricular ejection fraction is 60%. Aortic valve sclerosis without stenosis. No prior study for comparison. NM Myocardial perfusion 2014: FINDINGS: No prior comparison. The estimated left ventricular ejection fraction is 60% at rest and 67 % with stress. There is uniform uptake throughout the LV myocardium without suspicious fixed or reversible defect. IMPRESSION: 1. No evidence of ischemia at the level of stress achieved. Perioperative risk calculators 2014 ACC/AHA Perioperative Cardiac Risk Stratification (assumes non-emergent, non-cardiac p rocedure) Are active cardiac conditions present? No Calculate the combined surgical and patient-specific risk: using the Connolly perioperative ca rdiac risk calculator, the risk of major adverse cardiac event (MACE) is: less than 1%. No further risk stratification for coronary disease is indicated. Estimated ASA class 2 Other perioperative risk calculators: Not Applicable ASSESSMENT and RECOMMENDATIONS: Perioperative risk assessment: Helen Bray is a 63 y.o. female with diagnosis of Ch ronic pansinusitis, scheduled for BILATERAL MAXILLARY ANTROSTOMY WITH TISSUE REMOVAL, BILATE RAL TOTAL ETHMOIDECTOMY, BILATERAL FRONTAL SINUSOTOMY, BILATERAL SPHENOIDOTOMY WITH TISSUE R EMOVAL, BILATERAL MIDDLE TURBINATE RESECTION, IMAGE GUIDANCE-FUSION on 02/07/19. Based on t he clinical information obtained and reviewed during this visit, the overall assessment is t hat the patient is having elective minor surgery with identified risk factors. The patient i s stable / optimized for surgery. Additional testing/optimization is not needed. The la nena nt is also currently scheduled at [facility] [place] and is meeting inclusion criteria for that venue. Medication management recommendations: The patient was advised to continue all usual med ications except as noted in Patient Instructions (After Visit Summary given to pt) Pre-procedure antibiotic recommendation: Per standard protocol. HLD -- treated with statin. GERD -- well controlled with omeprazole. Pt denies water brash. No prior hx of aspiratio n pneumonia. DM II -- treated with latus, Victoza, and Actos. Taking losartan for renal protection. C heck A1C today. Fibromyalgia --moderately controlled without medications. Takes CBD as needed. Obesity -- Body mass index is 31.94 kg/m. Advised pt to hold all herbal supplements 7 days prior to surgery. Thank you for the opportunity to contribute to this patient's care. Renae Heaton DNP [facility] [address] [facility] [address] I spent time counseling the pt regarding perioperative risk (cardiac/bleeding/ DVT/ respir atory failure/ infection, etc) and methods to mitigate risk. I advised the patient regardin g NPO requirements, hydration before surgery, showering, general body hygiene. All pre-proc edure instructions given to the patient (after-visit summary). All of patient's questions w ere addressed. The patient verbalized understanding of the instructions given. Electronica lly signed by Renae Heaton DNP at 02/01/2019 11:35 AM PDTdocumented in this encounter Plan of Treatment +--------+ + + + + | Date | Type | Specialty | Care Team | Description | +--------+ + + + + | 11/27/ | Video/TeleH | Otolaryngology | Erik Lambert | | | 2020 | [facility] | | MD Jacoby [address] | | | | [place]aman | | [place] [address] | | | | | | [place], [place] | | | | | | [address] | | | | | | [phone] | | | | | | | | +--------+ + + + + documented as of this encounter Procedures + +--------+ + + + | Procedure Name | Priori | Date/Time | Associated Diagnosis | Comments | | | ty | | | | + +--------+ + + + | KS COLLECTION VENOUS | Routin | 02/01/2019 | Pre-op evaluation | | | BLOOD,VENIPUNCTURE | e | 9:21 AM | | | | | | PDT | | | + +--------+ + + + | CBC (HEMOGRAM) ONLY | Routin | 02/01/2019 | Pre-op evaluation | Results for this | | | e | 9:20 AM | | procedure are in the | | | | PDT | | results section. | + +--------+ + + + | CBC ONLY | Routin | 02/01/2019 | Pre-op evaluation | Results for this | | | e | 9:20 AM | | procedure are in the | | | | PDT | | results section. | + +--------+ + + + | HEMOGLOBIN A1C, | Routin | 02/01/2019 | Pre-op evaluation | Results for this | | BLOOD | e | 9:20 AM | | procedure are in the | | | | PDT | | results section. | + +--------+ + + + documented in this encounter Results CBC (HEMOGRAM) ONLY (02/01/2019 9:20 AM PDT) + + + + + + | Component | Value | Ref Range | Performed | Pathologist | | | | | At | Signature | + + + + + + | WHITE CELL | 7.35 | 3.50 - 10.80 | [facility] | | | COUNT | | K/cu mm | LABORATORY | | | | | | SERVICES, | | | | | | CORE | | + + + + + + | RED CELL | 4.01 | 4.00 - 5.20 | [facility] | | | COUNT | | M/cu mm | LABORATORY | | | | | | SERVICES, | | | | | | CORE | | + + + + + + | HEMOGLOBIN | 12.2 | 12.0 - 16.0 | [facility] | | | | | g/dL | LABORATORY | | | | | | SERVICES, | | | | | | CORE | | + + + + + + | HEMATOCRIT | 38.5 | 36.0 - 46.0 % | [facility] | | | | | | LABORATORY | | | | | | SERVICES, | | | | | | CORE | | + + + + + + | MCV | 96.0 | 80.0 - 100.0 fL | [facility] | | | | | | LABORATORY | | | | | | SERVICES, | | | | | | CORE | | + + + + + + | MCHC | 31.7 (L) | 32.0 - 36.0 | [facility] | | | | | g/dL | LABORATORY | | | | | | SERVICES, | | | | | | CORE | | + + + + + + | RDW SD | 49.0 (H) | 35.1 - 46.3 fL | [facility] | | | | | | LABORATORY | | | | | | SERVICES, | | | | | | CORE | | + + + + + + | PLATELET | 238 | 150 - 400 K/cu | [facility] | | | COUNT | | mm | LABORATORY | | | | | | SERVICES, | | | | | | CORE | | + + + + + + | MPV | 11.9 | 9.7 - 12.3 fL | [facility] | | | | | | LABORATORY | | | | | | SERVICES, | | | | | | CORE | | + + + + + + | NRBC% | 0.4 (H) | 0.0 - 0.3 % | [facility] | | | | | | LABORATORY | | | | | | SERVICES, | | | | | | CORE | | + + + + + + | NRBC# | 0.03 (H) | 0.00 - 0.02 | [facility] | | | | | K/cu mm | LABORATORY | | | | | | SERVICES, | | | | | | CORE | | + + + + + + + + | Specimen | + + | Blood - Blood | | (substance) | + + + + + + + | Performing | Address | City/State/Zipcode | Phone Number | | Organization | | | | + + + + + | [facility] | [address] | [place] [address] | | | SERVICES, CORE | [address] | | | + + + + + HEMOGLOBIN A1C, BLOOD (02/01/2019 9:20 AM PDT) + + + + + + | Component | Value | Ref Range | Performed | Pathologist | | | | | At | Signature | + + + + + + | HEMOGLOBIN | 6.1 (H)Comment: Hgb A1C | <5.7 % | [facility] | | | A1C | Interpretive | | LABORATORY | | | | Information: | | SERVICES, | | | | <5.7% - Normal | | SPECIAL IMM | | | | 5.7-6.4% - Consistent | | + [facility] | | | | with pre-diabetes | | | | | | >6.4% - Consistent | | | | | | with diabetes | | | | | | | | | | + + + + + + | ESTIMATED | 128Comment: The | mg/dL | [facility] | | | AVERAGE | estimated Average | | LABORATORY | | | GLUCOSE | Glucose (eAG) number is | | SERVICES, | | | | calculated from the | | SPECIAL IMM | | | | result of the A1c test. | | + [facility] | | | | The eAG shows what the | | | | | | average blood glucose | | | | | | was over the previous 2 | | | | | | to 3 months. | | | | + + + + + + + + | Specimen | + + | Blood - Blood | | (substance) | + + + + + | Narrative | Performed At | + + + | Alternate forms of testing such as fructosamine should be | [facility] | | considered for monitoring roasterman glycemic control in patients with: | LABORATORY | | Increased red cell turnover, certain hemoglobinopathies (e.g., HbS, | SERVICES, | | HbE, HbC and thalassemia syndromes), anemias, blood loss, chronic | SPECIAL IMM + | | liver disease and hemochromatosis (artefactually low HbA1c); iron | [facility] | | deficiency anemia (artefactually high HbA1c due to enhanced glycation | | | of hemoglobin). | | + + + + + + + + | Performing | Address | City/State/Zipcode | Phone Number | | Organization | | | | + + + + + | [facility] | [address] [facility] | [place] [address] | | | SERVICES, SPECIAL | [address] | | | | IMM + [place] | | | | + + + + + documented in this encounter Visit Diagnoses + + | Diagnosis | + + | Pre-op evaluation - Primary Preoperative examination, unspecified | + + | Preop examination Preoperative examination, unspecified | + + | Hypertension, unspecified type | + + | Obesity, unspecified classification, unspecified obesity type, unspecified whether | | serious comorbidity present | + + | Hyperlipidemia, unspecified hyperlipidemia type | + + | Type 2 diabetes mellitus with other specified complication, unspecified whether long | | term insulin use (HCC) | + + documented in this encounter
--- OUTSIDE RECORDS SUMMARY | ~2019-12-30 | XMS | Clinical Summary ---
Demographics + + + | Address | [address] | | | [place] [address] | + + + | Home Phone | | + + + | Preferred Language | Unknown | + + + | Marital Status | Single | + + + | Evangelical Affiliation | NRP | + + + | Race | White | + + + | Ethnic Group | Not or | + + + Author + + + | Author | [facility] | + + + | Organization | [facility] | + + + | Address | Unknown | + + + | Phone | Unavailable | + + + Support + + +---------+ + | Name | Relationship | Address | Phone | + + +---------+ + | Kiara Jaimes | ECON | Unknown | | + + +---------+ + Care Team Providers + +------+ + | Care Social Services Manager Name | Role | Phone | + +------+ + | Meagan Ayala MD | PCP | | + +------+ + Source Comments [facility] is fully live on [facility] Allergies + + + + + + | Active Allergy | Reactions | Severity | Noted | Comments | | | | | Date | | + + + + + + | Hymenoptera | Anaphylaxis, Hives | High | 12/23/19 | | | Allergenic Extract | | | 19 | | + + + + + + | Hydrocodone-Acetamin | Hives | | 12/23/19 | | | ophen | | | 19 | | + + + + + + Medications + + + +---------+------+------+-------+ | Medication | Sig | Dispensed | Refills | Star | End | Statu | | | | | | t | Date | s | | | | | | Date | | | + + + +---------+------+------+-------+ | acyclovir 200 mg | Take 400 mg by mouth | | 0 | | | Activ | | oral capsule | once daily. | | | | | e | + + + +---------+------+------+-------+ | liraglutide | Inject 1.8 mg under | | 0 | | | Activ | | (VICTOZA 2-CHERRY) 0.6 | the skin (SUBC). | | | | | e | | mg/0.1 mL (18 mg/3 | | | | | | | | mL) subcutaneous pen | | | | | | | | injector | | | | | | | + + + +---------+------+------+-------+ | pioglitazone | Take 30 mg by mouth | | 0 | | | Activ | | (ACTOS) 30 mg oral | once daily. | | | | | e | | tablet | | | | | | | + + + +---------+------+------+-------+ | insulin glargine | Inject 18 Units | | 0 | | | Activ | | U-300 conc (TOUJEO | under the skin | | | | | e | | MAX U-300 SOLOSTAR) | (SUBC) once daily. | | | | | | | 300 unit/mL (3 mL) | | | | | | | | subcutaneous insulin | | | | | | | | pen | | | | | | | + + + +---------+------+------+-------+ | losartan 25 mg | Take 25 mg by mouth | | 0 | | | Activ | | oral tablet | once daily. | | | | | e | + + + +---------+------+------+-------+ | LOVASTATIN ORAL | Take 40 mg by mouth | | 0 | | | Activ | | | once daily. | | | | | e | + + + +---------+------+------+-------+ | multivitamin oral | Take 1 tablet by | | 0 | | | Activ | | tablet | mouth once daily. | | | | | e | + + + +---------+------+------+-------+ | MAGNESIUM OXIDE | Take 400 mg by mouth | | 0 | | | Activ | | ORAL | once daily at | | | | | e | | | bedtime. | | | | | | + + + +---------+------+------+-------+ | omeprazole 40 mg | Take 40 mg by mouth | | 0 | | | Activ | | oral capsule,delayed | once daily. | | | | | e | | release(/EC) | Administer 30 to 60 | | | | | | | | minutes before meals | | | | | | + + + +---------+------+------+-------+ | Oregano Oil 1,500 | Take 1 tablet by | | 0 | | | Activ | | mg oral capsule | mouth once daily. | | | | | e | + + + +---------+------+------+-------+ | Zinc 50 mg oral | Take 50 mg by mouth | | 0 | | | Activ | | tablet | once daily. | | | | | e | + + + +---------+------+------+-------+ | charcoal/calcium | Take 1 tablet by | | 0 | | | Activ | | carbonate (ACTIVATED | mouth once daily. | | | | | e | | CHARCOAL-CALCIUM | | | | | | | | CAR ORAL) | | | | | | | + + + +---------+------+------+-------+ | Ca carb-Ca gluc-Mg | Take 1 tablet by | | 0 | | | Activ | | ox-Mg gluco | mouth once daily at | | | | | e | | (CALCIUM MAGNESIUM) | bedtime. | | | | | | | 500 mg calcium -250 | | | | | | | | mg oral tablet | | | | | | | + + + +---------+------+------+-------+ | acetylcysteine | Take 600 mg by mouth | | 0 | | | Activ | | (NAC) 600 mg oral | two times daily. | | | | | e | | capsule | | | | | | | + + + +---------+------+------+-------+ | ascorbic | Take 1 tablet by | | 0 | | | Activ | | acid/collagen hydr | mouth once daily. | | | | | e | | (COLLAGEN PLUS | | | | | | | | VITAMIN C ORAL) | | | | | | | + + + +---------+------+------+-------+ | Lactobac | Take 1 tablet by | | 0 | | | Activ | | no.41/Bifidobact | mouth once daily. | | | | | e | | no.7 (PROBIOTIC-10 | | | | | | | | ORAL) | | | | | | | + + + +---------+------+------+-------+ | L-LYSINE ORAL | Take 1 tablet by | | 0 | | | Activ | | | mouth once daily. | | | | | e | + + + +---------+------+------+-------+ | D-MANNOSE ORAL | Take 1 tablet by | | 0 | | | Activ | | | mouth once daily. | | | | | e | + + + +---------+------+------+-------+ | methylPREDNISolone | Take 1 kit by mouth | 1 | 0 | 10/2 | | Activ | | (MEDROL (CHERRY)) 4 mg | Use as directed. | Package | | 9/20 | | e | | oral tablets,dose | Take daily with | | | 19 | | | | pack | food:day 1=6 | | | | | | | | tabs,day 2=5 | | | | | | | | tabs,day 3=4 | | | | | | | | tabs,day 4=3 | | | | | | | | tabs,day 5=2 | | | | | | | | tabs,day 6=1 tab. | | | | | | + + + +---------+------+------+-------+ | predniSONE 10 mg | Take 3 tablets x 4 | 24 | 0 | 12/1 | | Activ | | oral tablet | days, 2 tablets x 4 | tablet | | 0/20 | | e | | | days, 1 tablet x 4 | | | 19 | | | | | days. | | | | | | + + + +---------+------+------+-------+ | azelastine | Instill 2 sprays | 1 each | 11 | 02/ | | Activ | | (ASTELIN) 137 mcg | into each nostril | | | 8/20 | | e | | (0.1 %) nasal | two times daily. | | | 20 | | | | aerosol,spray | | | | | | | + + + +---------+------+------+-------+ | azithromycin | Take 1 tablet by | 30 | 2 | 06/1 | 09/1 | Activ | | (ZITHROMAX) 250 mg | mouth once daily. | tablet | | 2/20 | 0/20 | e | | oral tablet | | | | 20 | 20 | | + + + +---------+------+------+-------+ | Budesonide 1 mg/2 | Use 250 mL saline | 720 mL | 2 | 07/1 | | Activ | | mL inhalation | mixed with 4 mL of | | | 7/20 | | e | | suspension for | budesonide twice | | | 20 | | | | nebulization | daily. | | | | | | + + + +---------+------+------+-------+ Active Problems + + + | Problem | Noted Date | + + + | Obesity | | + + + | HTN (hypertension) | | + + + | HLD (hyperlipidemia) | | + + + | Diabetes mellitus | | + + + Encounters +--------+ + + + + | Date | Type | Specialty | Care Team | Description | +--------+ + + + + | 12/06/ | Pharmacy | Pharmacy Services | | | | 2019 | Visit | | | | +--------+ + + + + | 12/01/ | Pharmacy | Pharmacy Services | | | | 2019 | Visit | | | | +--------+ + + + + | 12/01/ | MyChart | Otolaryngology | Erik Lambert | RE: My prescription | | 2019 | Encounter | | MD Jacoby | | +--------+ + + + + | 11/24/ | Office | Otolaryngology | Erik Lambert | Chronic pansinusitis | | 2019 | Visit | | N, MD | (Primary Dx) | +--------+ + + + + | 11/24/ | Travel | | | | | 2019 | | | | | +--------+ + + + + | 11/20/ | Pharmacy | Pharmacy Services | | | | 2019 | Visit | | | | +--------+ + + + + | 10/24/ | [facility] | Otolaryngology | Clair Norman | | | 2019 | | | PMD | | +--------+ + + + + | 10/24/ | MyChart | Otolaryngology | Erik Lambert | RE:(No subject) | 2019 | Encounter | | NMD | | +--------+ + + + + from Last 3 Months Social History + + + +--------+ + [...] | | | + +---+---+---+ + + | Tobacco Cessation: Counseling Given: Yes | + + + + +---------+ + | Alcohol Use [...] recent travel history available. | + + Last Filed Vital Signs + + + + + | Vital Sign | Reading | Time Taken | Comments | + + + + + | Blood Pressure | 125/55 | 02/07/2019 1:26 PM | | | | | PDT | | + + + + + | Pulse | 64 | 02/07/2019 1:26 PM | | | | | PDT | | + + + + + | Temperature | 36.8 C (98.3 F) | 11/25/2019 8:42 AM | | | | | PDT | | + + + + + | Respiratory Rate | 14 | 02/07/2019 1:26 PM | | | | | PDT | | + + + + + | Oxygen Saturation | 99% | 02/07/2019 1:34 PM | | | | | PDT | | + + + + + | Inhaled Oxygen | - | - | | | Concentration | | | | + + + + + | Weight | 84.4 kg (186 lb) | 02/07/2019 7:00 AM | | | | | PDT | | + + + + + | Height | 165.1 cm (5' 5") | 02/07/2019 7:00 AM | | | | | PDT | | + + + + + | Body Mass Index | 30.95 | 02/07/2019 7:00 AM | | | | | PDT | | + + + + + Plan of Treatment +--------+ + + + + | Date | Type | Specialty | Care Team | Description | +--------+ + + + + | 11/27/ | Video/TeleH | Otolaryngology | Erik Lambert | | | 1 | anah-Sched | | MD Jacoby [address] | | | | [address] | | [address] | | | | | | [place], [place] | | | | | | [address] | | | | | | [phone] | | | | | | | | +--------+ + + + + + + + + + | Health Maintenance | Due Date | Last Done | Comments | + + + + + | Influenza (Flu) | | 04/21/2019 | | | vaccination (#1) | 0 | | | + + + + + | Pneumococcal | Completed | 03/29/2018, 11/23/2017 | | | vaccination | | | | + + + + + Implants + +------+--------+ +--------+--------+--------+ | Implanted | Type | Area | Manufacture | Device | Shelf | Model | | | | | r | | Expira | / | | | | | | Identi | tion | Serial | | | | | | fier | Date | / Lot | + +------+--------+ +--------+--------+--------+ | Darin ContourImplanted: Qty: | | Bilate | INTERSECT | | 04/13/ | / | | 1 on 02/07/2019 by | | ral: | ENT | | 2018 | /[id number] | | Erik Lambert MD at | | Other | | | | 001 | | [facility] | | | | | | | + +------+--------+ +--------+--------+--------+ + + | Description:Bilateral sinus | + + Procedures + +--------+ + + + | Procedure Name | Priori | Date/Time | Associated Diagnosis | Comments | | | ty | | | | + +--------+ + + + | [place] NASAL | Routin | 11/25/2019 | Chronic | | | ENDOSCOPY,DX | e | 10:18 AM | pansinusitis | | | | | PDT | | | + +--------+ + + + from Last 3 Months Results Not on filefrom Last 3 Months Insurance + +--------+ +--------+ + +------+ | Payer | Benefi | Subscriber | Effect | Phone | Address | Type | | | t Plan | ID | nohemy | | | | | | / | | Dates | | | | | | Group | | | | | | + +--------+ +--------+ + +------+ | [employer] | PHP | [phone] | 05/18/19 | [phone] | [address] | PPO | | | [address]BB | | 10-Pre | 0 | [phone] | | [address] | | sent | | [place], | | | | [place] | | | | [place] [address] | | + +--------+ +--------+ + +------+ + +--------+ +--------+ + + | Guarantor Name | Accoun | Relation to | Date | Phone | Billing Address | | | t Type | Patient | of | | | | | | | | | | + +--------+ +--------+ + + | Helen Bray | Person | Self [birth year] | [address] | | | al/Fam | | 1955 | [phone] | [place] [address] | | | quinten | | | 7 (Home) | | + +--------+ +--------+ + + Advance Directives + + + + + | Code Status | Date | Date | Comments | | | Activated | Inactivated | | + + + + + | Full Code | 02/07/2019 | 02/07/2019 | | | | 7:07 AM | 8:37 PM | | + + + + +
--- OUTSIDE RECORDS SUMMARY | ~2019-12-30 | XMS | Encounter Summary ---
Demographics + + + | Address | [address] | | | [place] [address] | + + + | Home Phone | | + + + | Preferred Language | Unknown | + + + | Marital Status | Single | + + + | Rastafarian Affiliation | NRP | + + + | Race | White | + + + | Ethnic Group | Not or | + + + Author + + + | Author | [facility] | + + + | Organization | [facility] | + + + | Address | Unknown | + + + | Phone | Unavailable | + + + Support + + +---------+ + | Name | Relationship | Address | Phone | + + +---------+ + | Kiara Jaimes | ECON | Unknown | | + + +---------+ + Care Team Providers + +------+ + | Care Track Service Person Name | Role | Phone | + [...] | | | | | Procedures | [place] | [place] for | | | | | CT SINUS | Cherelle | [facility] and | | | | | WO CONTRAST | [place], [place] | Healing, | | | | | ROUTINE | [address] | [address], | | | | | | Phone: | 3rd Floor | | | | | | [phone] | [facility] [place] | | | | | | Fax: | [address] | | | | | | [phone] | Phone: | | | | | | | [phone] | | | | | | | Fax: | | | | | | | [phone] | +--------+--------+ + + + + PROC [...] | REQUEST TO | [address] | [facility], | | | | | SURGERY | [address] | [place] [address] | | | | | HIDE SPREADER | [place], [place] | Phone: | | | | | [place] NASAL | [address] | [phone] | | | | | ALLEGRA BOCANEGRA | Phone: | Fax: | | | | | TISS MAXILL | [phone] | [phone] | | | | | SINUS [place] | Fax: | | | | | | NSL/SINS | [phone] | | | | | | NDSC SPHN | | | | | | | TISS RMVL | | | | | | | [place] NASAL | | | | | | | SCOPY,EXPLOR | | | | | | | FRONTAL | | | | | | | SINUS [place] | | | | | | | SCAN PROC | | | | | | | CRANIAL | | | | | | | EXTRA [place] | | | | | | | [...] | | | | pansinusitis | MD [address] | | | | | | Procedures | Chong [place]r | | | | | | CT SINUS | Cherelle Mcdonnell | | | | | | WO CONTRAST | [place], [place] | | | | | | ROUTINE | [address] | | | | | | | Phone: | | | | | | | [phone] | | | | | | | Fax: | | | | | | | [phone] | | +--------+--------+ + + + + [...] | | Procedures | [address] | [facility] | | | | | CONSULT TO | Rd | Health and | | | | | ENT SINUS | [place], [place] | Healing, | | | | | | [address] | [address], | | | | | | Phone: | 5th Floor | | | | | | [phone] | [place], [place] | | | | | | Fax: | [address] | | | | | | [phone] | Phone: | | | | | | | [phone] | | | | | | | Fax: | | | | | | | [phone] | +--------+--------+ + + + + Encounter Details +--------+---------+ + + + | Date | Type | Department | Care Team | Description | +--------+---------+ + + + | 01/11/ | Office | [facility] | Erik Lambert | Chronic pansinusitis | | 2019 | Visit | Center at [facility] [address] | MD Jacoby [address] | (Primary Dx) | | | | [address] | [address] | | | | | for Health and | [place], [place] | | | | | Healing, [address], | [address] | | | | | 5th Floor | [phone] | | | | | [place], [place] | | | | | | [address] | | | | | | [phone] | | | +--------+---------+ + + + [...] might be different fr om the original. [facility] HPI: Helen Bray is a 63 y.o. female who presents [facility] the [facility]. 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 She reports her culture from sputum grew [...] Sting [Hymenoptera Allergenic Extract] Anaphylaxis and Hives [place] [Hydrocodone-Acetaminophen] Hives PHYSICAL EXAM: General Appearance: Pleasant, [...] medication delivery. CT external order placed for [place] Budesonide twice daily Plan for revision sinus [...] 2020 | ealth-Sched | | MD Jacoby [address] | | | | giovany | | [facility] | | | | | | [place], [place] | | | | | | [address] | | | | | | [phone] | | | | | | | [...] | + +--------+ + + + | [place] NASAL | Routin | 01/12/2019 | Chronic [...] ceftriaxone, cefuroxime, trimethoprim/sulfa and azithromycin. Gram | [facility] | | Stain: Rare polymorphonuclear cells No squamous epithelial cells | | | No organisms seen | | + + + + + + + + | Performing | Address | City/State/Zipcode | Phone Number | | Organization | | | | + + + + + | [facility] | [address] | [place] [address] | | | [place] | | | | + + + + + documented in this encounter Visit Diagnoses + + | Diagnosis | + + | Chronic pansinusitis - Primary Other chronic sinusitis | + + documented in this encounter
--- OUTSIDE RECORDS SUMMARY | ~2019-12-30 | XMS | Encounter Summary ---
Demographics + + + | Address | [address] | | | [place] [address] | + + + | Home Phone [...] Author + + + | Author | [facility] | + + + | Organization | [facility] | + + + | Address | Unknown | + + + | Phone | Unavailable | + + + Support + + +---------+ + | Name | Relationship | Address | Phone | + + +---------+ + | Kiara Jaimes | ECON | Unknown | | + + +---------+ + Care Team Providers + +------+ + | Care Service Manager Name | Role | Phone | + +------+ + | Meagan Ayala MD | PCP | | + +------+ + Encounter Details +--------+ + + + + | Date | Type | Department | Care Team | Description | +--------+ + + + + | 07/01/ | Outside | UNKNOWN DEPARTMENT | Other, Faculty | | | 2018 | Records | [address] [facility] | [phone] | | | | | [address] | | | | | | [place], [place] | | | | | | [address] | | | +--------+ + + + [...] 5 | | | | | | [place], [place] | | | | | | [address] | | | | | | [phone] | | | | | | | [...]
--- OUTSIDE RECORDS SUMMARY | ~2019-12-30 | XMS | Encounter Summary ---
Demographics + + + | Address | [address] | | | [place] [address] | + + + | Home Phone | | + + + | Preferred Language | Unknown | + + + | Marital Status | Single | + + + | Shinto Affiliation | NRP | + + + [...] Team Providers + +------+ + | Care Used Car Make Ready Worker Name | Role | Phone | + +------+ + | Meagan Ayala MD | [place] | | + +------+ + Encounter Details +--------+--------+ + + + | Date | Type | Department | Care Team | Description | +--------+--------+ + + + | 01/11/ | Travel | | | | | 2019 | | | | | +--------+--------+ + + + Social History + +-------+ [...] 2020 | anah-Sched | | MD Jacoby [address] | | | | giovany | | [address] | | | | | | [place] | | | | | | [address] | | | | | | [phone] | | | | | | | | +--------+ + + + + documented as of this encounter Visit Diagnoses Not on filedocumented in this encounter"
--- OUTSIDE RECORDS SUMMARY | ~2019-12-30 | XMS | Encounter Summary ---
Demographics + + + | Address | [address] | | | [place] [address] | + + + | Home Phone | | + + + | Preferred Language | Unknown | + + + | Marital Status | Single | + + + | Confucianist Affiliation | NRP | + + + [...] Team Providers + +------+ + | Care Associate Material Handler Name | Role | Phone | + [...] as of this encounter Progress Notes Interface, Inter Fold Roll Cutter In - 10/31/2005 1:10 AM PDTClinic Date: [...] Scanlon M.D. Mika Mitchell M.D. / HS [id number] / [id number] / [id number] / [id number] cc: Rosendo Lang M.D. [facility] [address] [place] [address] [facility] [address] [facility] [place] [id number] signed by Interface, Inter Fold Roll Cutter In at 10/31/2005 1:10 AM PDTdocumented in this encounter Plan of Treatment +--------+ + + + + | Date | Type | Specialty | Care Team | Description | +--------+ + + + + | 11/27/ | Video/TeleH | Otolaryngology | Erik Lambert | | | 2020 | ana-Sched | | MD Jacoby [address] | | | | uled | | [address] | | | | | | [place], [place] | | | | | | [address] | | | | | | [phone] | | | | | | | | +--------+ + + + + documented as of this encounter Visit Diagnoses Not on filedocumented in this encounter"
--- OUTSIDE RECORDS SUMMARY | ~2019-12-30 | XMS | Encounter Summary ---
Demographics + + + | Address | [address] | | | [place] [address] | + + + | Home Phone | | + + + | Preferred Language | Unknown | + + + | Marital Status | Single | + + + | Mosque Affiliation | NRP | + + + | Race | White | + + + | Ethnic Group | Not or | + + + Author + + + | Author | [facility] | + + + | Organization | [facility] | + + + | Address | Unknown | + + + | Phone | Unavailable | + + + Support + + +---------+ + | Name | Relationship | Address | Phone | + + +---------+ + | Kiara Jaimes | ECON | Unknown | | + + +---------+ + Care Team Providers + +------+ + | Care Regional Manager Name | Role | Phone | + +------+ + PCP | Unavailable | + +------+ + Encounter Details +--------+ + + + + | Date | Type | Department | Care Team | Description | +--------+ + + + + | 01/28/ | Document-Sc | UNKNOWN DEPARTMENT | Other, Faculty | | | 2010 | anned | [address] | [phone] | | | | | [address] | | | | | | [place], [place] | | | | | | [address] | | | +--------+ + + + [...] Erik Lambert | | | 2020 | Rojelio | | MD Jacoby [address] | | | | giovany | | [address] | | | | | | [place], [place] | | | | | | [address] | | | | | | [phone] | | | | | | | | +--------+ + + + + documented as of this encounter Procedures + +--------+ + + + | Procedure Name | Priori | Date/Time | Associated Diagnosis | Comments | | | ty | | | | + +--------+ + + + | PATHOLOGY | | 06/18/2010 | | Results for this | | | | 12:00 AM | | procedure are in the | | | | PST | | results section. | + +--------+ + + + documented in this encounter Results PATHOLOGY (06/18/2010 12:00 AM PST) + + + | Narrative | Performed At | + + + | | | + + + + + | Transcriptions | + + | Davi Glasgow - 02/05/2011 1:22 PM PDT | + + documented in this encounter Visit Diagnoses Not on filedocumented in this encounter"
--- OUTSIDE RECORDS SUMMARY | ~2019-12-30 | XMS | Encounter Summary ---
Demographics + + + | Address | [address] | | | [place] [address] | + + + | Home Phone | | + + + | Preferred Language | Unknown | + + + | Marital Status | Single | + + + | Gnosticist Affiliation | NRP | + + + [...] Team Providers + +------+ + | Care Robotics Systems Engineer Name | Role | Phone | + +------+ + PCP | Unavailable | + +------+ + Encounter Details +--------+ + + + + | Date | Type | Department | Care Team | Description | +--------+ + + + + | 04/05/ | Procedure - | | Record, Operation | Operative Report | | 2001 | | | | | | | Transcribed | | | | +--------+ + + [...] 2020 | marcus-Pool | | MD Jacoby [address] | | | | giovany | | [address] | | | | | | [place], [place] | | | | | | [address] | | | | | | [phone] | | | | | | | | +--------+ + + + + documented as of this encounter Procedures + +--------+ + + + | Procedure Name | Priori | Date/Time | Associated Diagnosis | Comments | | | ty | | | | + +--------+ + + + | OPERATION RECORD | | 04/05/2002 | | Results for this | | | | | | procedure are in the | | | | | | results section. | + +--------+ + + + documented in this encounter Results OPERATION RECORD (04/05/2002) + + | Transcriptions | + + | Interface, Traveling Sales Executive In - 12/18/2005 1:05 AM PDT | | [address] | | [place], [place] [address] | | [facility] RECORDMed Rec No.: | | [id number] Date: 04/05/2002Name: Helen Mckeon SURGEON:Mika | | Priscila CleaningDECK ENGINE OPERATOR SURGEON: Fabiola Key M.D.PREOPERATIVE | | DIAGNOSIS:Dysphagia.POSTOPERATIVE DIAGNOSIS:Herniated Margarette fundoplication.OPERATION | | PERFORMED:Laparoscopic redo Margarette fundoplication.SPECIMENS REMOVED:Not | | dictatedINDICATIONS:This is a 43-year-old white female, who underwent laparoscopic | | [place]oplication [place] one year ago. The patient had a | | goodresponse to her fundoplication until she underwent a chiropractic maneuver,which | | resulted in severe upper epigastric pain and dysphagia. Preoperativestudies showed an | | intact Margarette fundoplication wrap above the diaphragm,which had herniated into the | | chest. She was brought to the operating roomfor takedown of her Margarette fundoplication | | and reconstruction.COMPLICATIONS:None.FINDINGS:In the operating room, the patient was | | found to have an intact wrap, whichwas herniated above the diaphragm. The prior crura | | repair was disrupted.ESTIMATED BLOOD LOSS:Minimal.LENGTH OF PROCEDURE:One hour, 30 | | minutes.PROCEDURE:The patient was brought to the operating room, placed in the | | supineposition, intubated and anesthetized with general anesthesia. An OG tube,a | | Ontiveros catheter and STDs were placed. She was given preoperativeantibiotics, and | | the abdomen was prepped and draped in the usual sterilefashion. The abdomen was | | insufflated using a Verres needle in the leftupper quadrant. An initial camera port | | was placed 15 cm inferior to thexiphoid process just to the left of midline. Four | | additional trocars wereplaced under direct vision after infiltration with local | | anesthesia. Adown-flexed liver retractor was introduced into the abdomen and used | | toretract the left lateral segment of the liver anteriorly. Using theharmonic | | scalpel we were able to take down any attachments between the wrapand the right crease | | of the diaphragm. Once we were able to clear theattachments between the stomach | | and the crura, it was clear that the wraphad herniated into the chest and crural | | repair was disrupted. We clearedoff both of the crura in their entirety and reduced | | the wrap into theabdomen. We then performed an extensive mediastinal dissection | | to obtainmore intraabdominal esophageal length. Once this was completed, | | itappeared that the wrap was in fact around the esophagus but the cruraneeded to | | be reconstructed. We closed the crura using three pledgetedsutures. Once this was | | completed, we introduced a 42 Hungarian bougie downthe esophagus which was then | | followed by a 56 Hungarian bougie. The cruralrepair appeared to be of appropriate | | tightness.After this was completed, we removed the bougie under direct vision. Thiswas | | followed by the liver retractor and the trocars. The RA3jqjbbldcwgljhpva | | was evacuated from the abdomen, and the skin was closedusing 4-0 interrupted | | subcuticular sutures. Sterile dressings wereapplied. The patient was brought to | | the recovery room in stable condition.Priscila Dey | | Montse Cleaning.AB:X71D: 04/05/2002T: 04/07/[id number] | |was herniated above the diaphragm. The prior crura repair was disrupted. | | | |ESTIMATED BLOOD LOSS: | |Minimal. | | | |LENGTH OF PROCEDURE: | |One hour, 30 minutes. | | | |PROCEDURE: | |The patient was brought to the operating room, placed in the supine | |position, intubated and anesthetized with general anesthesia. An OG tube, | |a Ontiveros catheter and STDs were placed. She was given preoperative | |antibiotics, and the abdomen was prepped and draped in the usual sterile | |fashion. The abdomen was insufflated using a Verres needle in the left | |upper quadrant. An initial camera port was placed 15 cm inferior to the | |xiphoid process just to the left of midline. Four additional trocars were | |placed under direct vision after infiltration with local anesthesia. A | |down-flexed liver retractor was introduced into the abdomen and used to | |retract the left lateral segment of the liver anteriorly. Using the | |harmonic scalpel we were able to take down any attachments between the wrap | |and the right crease of the diaphragm. Once we were able to clear the | |attachments between the stomach and the crura, it was clear that the wrap | |had herniated into the chest and crural repair was disrupted. We cleared | |off both of the crura in their entirety and reduced the wrap into the | |abdomen. We then performed an extensive mediastinal dissection to obtain | |more intraabdominal esophageal length. Once this was completed, it | |appeared that the wrap was in fact around the esophagus but the crura | |needed to be reconstructed. We closed the crura using three pledgeted | |sutures. Once this was completed, we introduced a 42 Hungarian bougie down | |the esophagus which was then followed by a 56 Hungarian bougie. The crural | |repair appeared to be of appropriate tightness. | | | |After this was completed, we removed the bougie under direct vision. This | |was followed by the liver retractor and the trocars. The CO2 | |pneumoperitoneum was evacuated from the abdomen, and the skin was closed | |using 4-0 interrupted subcuticular sutures. Sterile dressings were | |applied. The patient was brought to the recovery room in stable condition. | | | | | | | |Priscila Dey M.D. | | | |AB:X71 | | | | | | | |[phone] | + + documented in this encounter Visit Diagnoses Not on filedocumented in this encounter"
--- OUTSIDE RECORDS SUMMARY | ~2019-12-30 | XMS | Encounter Summary ---
Demographics + + + | Address | [address] | | | [place] [address] | + + + | Home Phone | | + + + | Preferred Language | Unknown | + + + | Marital Status | Single | + + + | Mu-Ism Affiliation | NRP | + + + | Race | White | + + + | Ethnic Group | Not or | + + + Author + + + | Author | [facility] | + + + | Organization | [facility] | + + + | Address | Unknown | + + + | Phone | Unavailable | + + + Support + + +---------+ + | Name | Relationship | Address | Phone | + + +---------+ + | Kiara Jaimes | ECON | Unknown | | + + +---------+ + Care Team Providers + +------+ + | Care Refrigeration Person Name | Role | Phone | + +------+ + PCP | Unavailable | + +------+ + Encounter Details +--------+ + + + + | Date | Type | Department | Care Team | Description | +--------+ + + + + | 03/02/ | Results | General Surgery | Mika Mitchell, | | | 2001 | Only | [address] | [address] | | | | | Loop Mailcode: | [address] | | | | | [address] Physician's | [place], [place] | | | | | [address] | [address] | | | | | [place], [place] | [phone] | | | | | [address] | | | | | | [phone] | | | +--------+ + + + [...] 5 | | | | | | [place], [place] | | | | | | [address] | | | | | | [phone] | | | | | | | | +--------+ + + + + documented as of this encounter Procedures + +--------+ + + + | Procedure Name | Priori | Date/Time | Associated Diagnosis | Comments | | | ty | | | | + +--------+ + + + | TYPE AND SCREEN | Routin | 04/05/2002 | | Results for this | | | e | 6:40 AM | | procedure are in the | | | | PST | | results section. | + +--------+ + + + | X-RAY CHEST 2 VIEW | Routin | 03/02/2002 | | Results for this | | | e | 4:50 PM | | procedure are in the | | | | PDT | | results section. | + +--------+ + + + | COMPLETE METABOLIC | Routin | 03/02/2002 | | Results for this | | SET | e | 4:25 PM | | procedure are in the | | (NA,K,CL,CO2,BUN,CRE | | PDT | | results section. | | AT,GLUC,CA,AST,ALT,B | | | | | | RENETTA TOTAL,ALK | | | | | | PHOS,ALB,PROT TOTAL) | | | | | + +--------+ + + + documented in this encounter Results TYPE AND SCREEN (04/05/2002 6:40 AM PST) + +-------+ + + + | Component | Value | Ref Range | Performed | Pathologist | | | | | At | Signature | + +-------+ + + + | ABO GROUP | O | | [facility] | | | | | | DEPARTMENT | | | | | | OF | | | | | | PATHOLOGY | | + +-------+ + + + | RH TYPE | POS | | [facility] | | | | | | DEPARTMENT | | | | | | OF | | | | | | PATHOLOGY | | + +-------+ + + + | ANTIBODY | NEG | | [facility] | | | SCREEN | | | DEPARTMENT | | | | | | OF | | | | | | PATHOLOGY | | + +-------+ + + + + + | Specimen | + + | | + + + + + | Narrative | Performed At | + + + | SPECDoni PRATT 04/09/02 @ 0700 | [facility] | | | DEPARTMENT OF | | | PATHOLOGY | + + + + + + + + | Performing | Address | City/State/Zipcode | Phone Number | | Organization | | | | + + + + + | [facility] | [address] | [place] [address] | | | PATHOLOGY | [address] | | | + + + + + | [facility] | [address] | [place] [address] | | | PATHOLOGY | [address] | | | + + + + + CHEST 2 VIEW (03/02/2002 4:50 PM PDT) + + + + + + | Component | Value | Ref Range | Performed | Pathologist | | | | | At | Signature | + + + + + + | CHEST, 2 | Radiologist 1: JACOBY, | | | | | VIEWS [place] | DUSTIN MerinoPA AND LATERAL | | | | | STEREO | CHEST: 03/02/2002 | | | | | | Dictated 03/03/2002 | | | | | | COMPARISON: No | | | | | | previous examinations | | | | | | are available for | | | | | | comparison. INDICATIONS: | | | | | | Preop for evaluation | | | | | | for dysphasia. FINDINGS: | | | | | | The lungs are clear. | | | | | | Cardiac silhouette is | | | | | | normal. Noevidence for | | | | | | pleural effusion or | | | | | | pneumothorax. Surgical | | | | | | gay arepresent | | | | | | within the upper | | | | | | midabdomen. Osseous | | | | | | structures | | | | | | areunremarkable. | | | | | | IMPRESSION: No | | | | | | radiographic evidence | | | | | | for acute pulmonary | | | | | | disease. END OF | | | | | | IMPRESSION: | | | | + + + + + + + + | Specimen | + + | | + + + +---------+ + + | Performing | Address | City[facility]State[facility] | Phone Number | | Organization | | | | + +---------+ + + | [facility] DEPARTMENT OF | | | | | RADIOLOGY | | | | + +---------+ + + COMP METABOLIC SET (03/02/2002 4:25 PM PDT) + +--------+ + + + | Component | Value | Ref Range | Performed | Pathologist | | | | | At | Signature | + +--------+ + + + | GLUCOSE, | 89 | 65 - 110 mg/dL | [facility] | | | PLASMA | | | DEPARTMENT | | | (LAB) | | | OF | | | | | | PATHOLOGY | | + +--------+ + + + | BUN, PLASMA | 15 | 6 - 20 mg/dL | [facility] | | | (LAB) | | | DEPARTMENT | | | | | | OF | | | | | | PATHOLOGY | | + +--------+ + + + | CREATININE | 0.8 | 0.6 - 1.1 mg/dL | [facility] | | | PLASMA | | | DEPARTMENT | | | (LAB) | | | OF | | | | | | PATHOLOGY | | + +--------+ + + + | TOTAL | 7.0 | 6.1 - 7.9 g/dL | [facility] | | | PROTEIN, | | | DEPARTMENT | | | PLASMA | | | OF | | | (LAB) | | | PATHOLOGY | | + +--------+ + + + | ALBUMIN, | 4.4 | 3.5 - 4.7 g/dL | [facility] | | | PLASMA | | | DEPARTMENT | | | (LAB) | | | OF | | | | | | PATHOLOGY | | + +--------+ + + + | CALCIUM, | 10.1 | 8.5 - 10.5 | [facility] | | | PLASMA | | mg/dL | DEPARTMENT | | | (LAB) | | | OF | | | | | | PATHOLOGY | | + +--------+ + + + | BILIRUBIN | 0.6 | 0.3 - 1.2 mg/dL | [facility] | | | TOTAL | | | DEPARTMENT | | | | | | OF | | | | | | PATHOLOGY | | + +--------+ + + + | ALK PHOS | 55 | 42 - 98 U/L | [facility] | | | | | | DEPARTMENT | | | | | | OF | | | | | | PATHOLOGY | | + +--------+ + + + | AST(SGOT) | 15 | 15 - 41 U/L | [facility] | | | | | | DEPARTMENT | | | | | | OF | | | | | | PATHOLOGY | | + +--------+ + + + | SODIUM, | 141 | 136 - 145 | [facility] | | | PLASMA | | mmol/L | DEPARTMENT | | | (LAB) | | | OF | | | | | | PATHOLOGY | | + +--------+ + + + | POTASSIUM, | 4.2 | 3.5 - 5.1 | [facility] | | | PLASMA | | mmol/L | DEPARTMENT | | | (LAB) | | | OF | | | | | | PATHOLOGY | | + +--------+ + + + | CHLORIDE, | 103 | 98 - 107 mmol/L | [facility] | | | PLASMA | | | DEPARTMENT | | | (LAB) | | | OF | | | | | | PATHOLOGY | | + +--------+ + + + | TOTAL CO2, | 30 (H) | 23 - 29 mmol/L | [facility] | | | PLASMA | | | DEPARTMENT | | | (LAB) | | | OF | | | | | | PATHOLOGY | | + +--------+ + + + | ALT (SGPT) | 16 | 13 - 48 U/L | [facility] | | | | | | DEPARTMENT | | | | | | OF | | | | | | PATHOLOGY | | + +--------+ + + + + + | Specimen | + + | | + + + + + + + | Performing | Address | City/State/Zipcode | Phone Number | | Organization | | | | + + + + + | [facility] | [address] | [place] [address] | | | PATHOLOGY | [address] | | | + + + + + | [facility] | [address] | [place] [address] | | | PATHOLOGY | [address] | | | + + + + + documented in this encounter Visit Diagnoses Not on filedocumented in this encounter"
--- OUTSIDE RECORDS SUMMARY | ~2019-12-30 | XMS | Encounter Summary ---
Demographics + + + | Address | [address] | | | [place] [address] | + + + | Home Phone [...] Author + + + | Author | [facility] | + + + | Organization | [facility] | + + + | Address | Unknown | + + + | Phone | Unavailable | + + + Support + + +---------+ + | Name | Relationship | Address | Phone | + + +---------+ + | Kiara Jaimes | ECON | Unknown | | + + +---------+ + Care Team Providers + +------+ + | Care Clay Artist Name | Role | Phone | + +------+ + | Meagan Ayala MD | PCP | | + +------+ + Encounter Details +--------+ + + + + | Date | Type | Department | Care Team | Description | +--------+ + + + + | 03/17/ | MyChart | [facility] | Erik Lambert | RE: Medication | | 2019 | Encounter | Center at [facility] | MD Jacoby [address] | | | | | [address] [place] | [address] | | | | | for Health and | [facility] [place] | | | | | Healing, [address], | [address] | | | | | 5th Floor | [phone] | | | | | [place], [place] | | | | | | [address] | | | | | | [phone] | | | +--------+ + + + + Social History + + [...] 2020 | marcus-Pool | | MD Jacoby [address] | | | | giovany | | [address] [facility] [address] | | | | | | [place], [place] | | | | | | [address] | | | | | | [phone] | | | | | | | | +--------+ + + + + documented as of this encounter Visit Diagnoses Not on filedocumented in this encounter"
--- OUTSIDE RECORDS SUMMARY | ~2019-12-30 | XMS | Encounter Summary ---
Demographics + + + | Address | [address] | | | [place] [address] | + + + | Home Phone | | + + + | Preferred Language | Unknown | + + + | Marital Status | Single | + + + | Tenriism Affiliation | NRP | + + + | Race | White | + + + | Ethnic Group | Not or | + + + Author + + + | Author | [facility] | + + + | Organization | [facility] | + + + | Address | Unknown | + + + | Phone | Unavailable | + + + Support + + +---------+ + | Name | Relationship | Address | Phone | + + +---------+ + | Kiara Jaimes | ECON | Unknown | | + + +---------+ + Care Team Providers + +------+ + | Care Lead Web Developer Name | Role | Phone | + +------+ + PCP | Unavailable | + +------+ + Encounter Details +--------+ + + + + | Date | Type | Department | Care Team | Description | +--------+ + + + + | 06/18/ | Results | [facility] | Bernarda Navas I, | | | 2010 | Only | Department | Dermatology | | | | | | [address] | | | | | | [facility] | | | | | | [address] [place], | | | | | | [place] [address] | | | | | | [phone] | | | | | | | [...] 2020 | marcus-Sched | | MD Jacoby [address] | | | | [address] | | [address] | | | | | | [place], [place] | | | | | | [address] | | | | | | [phone] | | | | | | | | +--------+ + + + + documented as of this encounter Procedures + +--------+ + + + | Procedure Name | Priori | Date/Time | Associated Diagnosis | Comments | | | ty | | | | + +--------+ + + + | DERMATOPATHOLOGY(CON | Routin | 06/18/2010 | | Results for this | | SULT) | e | | | procedure are in the | | | | | | results section. | + +--------+ + + + documented in this encounter Results DERMATOPATHOLOGY(CONSULT) (06/18/2010) + + + + + + | Component | Value | Ref Range | Performed | Pathologist | | | | | At | Signature | + + + + + + | DERMATOPATH | SOURCE OF SPECIMEN:A | | [facility] | | | (CONSULT) | FIRST TISSUE LEVEL IV | | DERMATOPATH | | | | [id number] OF | | OLOGY | | | | SPECIMEN:B FIRST TISSUE | | | | | | [place]EL [place] [id number] | | | | | | CLINICAL DESCRIPTION:A: | | | | | | Punch, Lt. breast, 5mm | | | | | | irregular shape, jones, | | | | | | R/O melanoma.B: Punch, | | | | | | Lt. upper abdomen, | | | | | | nevus.2 slides | | | | | | ([id number]) received. | | | | | | GROSS DESCRIPTION:A. | | | | | | Left breast: Received in | | | | | | formalin, labeled | | | | | | Helen Bray, | | | | | | designatedleft breast, | | | | | | is a slightly raised, | | | | | | light to dark brown, | | | | | | variegated punch ofskin, | | | | | | 0.5 x 0.7cm. The | | | | | | surgical margin is inked | | | | | | green and the specimen | | | | | | isbisected.B. Left upper | | | | | | abdomen: Received in | | | | | | formalin, labeled | | | | | | Helen Bray,designated | | | | | | left upper abdomen, is | | | | | | a jones punch of skin, 0.4 | | | | | | x 0.6cm. Theskin | | | | | | surface demonstrates a | | | | | | raised, brown-jones, | | | | | | asymmetric, variegated | | | | | | area,0.3 x 0.2cm. The | | | | | | surgical margin is inked | | | | | | green and the specimen | | | | | | isbisected. Dear | | | | | | Bernarda: | | | | | | In Helen Mckeon's | | | | | | left breast biopsy (A) | | | | | | there is a | | | | | | dome-shapedpapule | | | | | | overlying a moderately | | | | | | broad, mostly well | | | | | | circumscribed | | | | | | compoundmelanocytic | | | | | | neoplasm characterized | | | | | | by round to oval nests | | | | | | and singlemelanocytes | | | | | | distributed along the | | | | | | basal layer and | | | | | | extending down the | | | | | | sidesand tips of rete | | | | | | ridges. Numerous nests | | | | | | and cords of melanocytes | | | | | | fill thepapillary | | | | | | dermis in band-like | | | | | | fashion. Most of the | | | | | | melanocytic nuclei | | | | | | aremoderately large and | | | | | | round to oval and most | | | | | | of the cells | | | | | | containamphophilic | | | | | | cytoplasm with melanin. | | | | | | In the left upper | | | | | | abdomen biopsy (B) there | | | | | | is a small to | | | | | | moderately broad,mostly | | | | | | well circumscribed | | | | | | compound melanocytic | | | | | | neoplasm characterized | | | | | | byround to oval nests | | | | | | along the basal layer | | | | | | and nests and cords | | | | | | ofmelanocytes in the | | | | | | papillary dermis. Most | | | | | | of the melanocytic | | | | | | nuclei aremoderately | | | | | | large and round to oval | | | | | | and most of the cells | | | | | | containamphophilic | | | | | | cytoplasm with melanin. | | | | | | Scattered melanophages | | | | | | are present inthe | | | | | | papillary dermis where | | | | | | there is a sparse | | | | | | lymphocytic infiltrate. | | | | | | DIAGNOSIS:A: | | | | | | MELANOCYTIC NEVUS, | | | | | | COMPOUND TYPE. | | | | | | NOTE: The nevus appears | | | | | | to be excised within the | | | | | | fragmented sections. | | | | | | B: MELANOCYTIC | | | | | | NEVUS, COMPOUND TYPE. | | | | | | NOTE: The nevus | | | | | | appears to be excised in | | | | | | these sections. 2 | | | | | | slides ([id number]) | | | | | | returned to Dr. Navas. | | | | | | KPW:emr06/24/10 | | | | | | My electronic signature | | | | | | indicates that I have | | | | | | personally reviewed | | | | | | alldiagnostic slides, | | | | | | the gross and/or | | | | | | microscopic portion of | | | | | | thisreport and | | | | | | formulated the final | | | | | | diagnosis. | | | | | | Rendering Diagnostician: | | | | | | Enrique Hughes | | | | | | PriscilaPathologistEllyni | | | | | | ashtyn Signed 06/24/2010 | | | | | | 6:02PM | | | | + + + + + + + + | Specimen | + + | | + + + + + + + | Performing | Address | City/State/Zipcode | Phone Number | | Organization | | | | + + + + + | [facility] | [address] | [place] [address] | | | DERMATOPATHOLOGY | [address] | | | + + + + + | [facility] | [address] | [place] [address] | | | DERMATOPATHOLOGY | [address] | | | + + + + + documented in this encounter Visit Diagnoses Not on filedocumented in this encounter"
--- OUTSIDE RECORDS SUMMARY | ~2019-12-30 | XMS | Encounter Summary ---
Demographics + + + | Address | [address] | | | [place] [address] | + + + | Home Phone | | + + + | Preferred Language | Unknown | + + + | Marital Status | Single | + + + | Religion Affiliation | NRP | + + + | Race | White | + + + | Ethnic Group | Not or | + + + Author + + + | Author | [facility] | + + + | Organization | [facility] | + + + | Address | Unknown | + + + | Phone | Unavailable | + + + Support + + +---------+ + | Name | Relationship | Address | Phone | + + +---------+ + | Kiara Jaimes | ECON | Unknown | | + + +---------+ + Care Team Providers + +------+ + | Care Department Manager Name | Role | Phone | [...] + + + + | 02/07/ | Hospital | [facility] | Erik Lambert | | | 2019 | Encounter | [address] | MD Jacoby [address] | | | | | [place] Mailcode: [facility] | [address] | | | | | [facility] | [place], [place] | | | | | [facility], | [address] | | | | | [place] [address] | [phone] | | | | | [place], [place] | | | | | | [address] | | | | | | [phone] | | | +--------+ + + + [...] + + + + | Temperature | 36.7 C (98.1 F) | 02/07/2019 1:26 PM | | | [...] + + + documented in this encounter Discharge Instructions Discharge Instr - Day Procedure Instructions Muriel Carbajal Md - 02/07/2019 10:22 AM PDTEnd oscopic Sinus Surgery Postoperative Care Instructions Your active participation in the postoperative phase of treatment is critical to the succes s of your surgery. Please read and follow the instructions below. Bleeding: It is normal to experience minor nasal bleeding the afternoon/evening of surgery. If bleeding occurs, lean forward slightly and gently pinch the bottom 2/3 of your nose betw een your thumb and forefinger. Hold this for approximately 10 minutes. If you are still expe riencing bleeding, you may apply Afrin (other options include jasiel-synephrine, 4 way nasal sp ray, etc.) to your nose to shrink the blood vessels. [place] 3 puffs to the affected nostril(s ) and then gently pinch the nose for 10 minutes. If this does not relieve the bleeding or if the bleeding is more significant, please call the hospital regrind mill operator and ask for the ENT doc tor environment coordinator. If extensive bleeding occurs, please call 911 or be seen at your closest emerge ncy department. Medications: Pain medication: You will receive a prescription for this. 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 Antibiotics: Start this the day after surgery. Aspirin/Motrin: DO NOT take aspirin or NSAIDs (non-steroidal anti-inflammatory medications such as Motrin/Advil/Aleve, etc.) for at least 3 days after the surgery. Budesonide irrigations: Moisture is critical to proper healing. You will need to moisturize and rinse your nose after surgery. The day after surgery, restart your sinus rinses with bu desonide 2 times a day. Post-operative care: DO NOT BLOW YOUR NOSE for the first week after surgery. You may sniff back. If you need to sneeze, do not suppress it but instead sneeze with your mouth open. Aft er 1 week, you may blow your nose gently. No strenuous activity for 2 weeks after surgery. No straining or lifting more than 10 lbs. You should not bend over at the waist to pick things up. Instead bend at the knees, with yo ur head up. Light walking and normal household activities are acceptable immediately after s urgery. You may resume exercise at 2 weeks. If you are taking antibiotics and experience stomach upset, active culture yogurt or acidop hilus tablets (available at health food stores) on a daily basis may help. If you develop di arrhea, stop your antibiotics and contact our office. Persistent diarrhea may require furthe r medical evaluation. You may eat a regular diet. Post-operative visits: You will have frequent return visits to our office after surgery. A t each visit, a procedure called nasal endoscopy will be performed. The sinus cavities may b e cleaned in order to assure appropriate healing of the sinuses. Visits typically occur 1, 3 , and 6 weeks after surgery. Post-operative visits are usually scheduled at the time of surg amy scheduling, however if you have any questions about your post-operative visit you can co ntact our clinic. Seek medical care if you experience any of the following: Fever higher than 101F Clear, watery nasal drainage Any visual changes or swelling of the eyes Severe headache or neck stiffness Diarrhea Brisk bleeding For questions or concerns please call the [facility]'s office Thursday-Thursday from 8 am-5pm at [phone]. For urgent or emergent questions at night and on weekends please aurora surya [phone] and ask to page the ENT resident environment coordinator. Additional Instructions Diana Rainey RN - 02/07/2019General Discharge Instruc tions for Same-Day Procedure Patients: ? Remember that you are under the influence of medications. Do not stay alone. A responsible person should be with you. Do not drive, drink alcohol or make important personal or business decisions for 24 hour s. ? Resume normal activity and return to work when advised by your Doctor. Pain Management: Your last oral pain medication was given at: TYLENOL 650 MG AT 1:12 PM, OXYCODONE 5 MG AT 11:30 AM, SCOPOLAMINE PATCH CAN BE REMOVED IN 3 DAYS. ? Please follow your Doctor s instructions on the medication bottle. ? Do not take pain medication on an empty stomach, as this may cause nausea and vomiting. ? Do not drive or drink alcohol while on narcotic pain medication. ? If pain is not relieved or increases despite following these instructions, please call yo Doctor. Diet and Medications You may return to your normal diet and take your normal medications unless otherwise instru cted by your physician. ? If you do not experience nausea or vomiting resume your regular diet. Eat lightly and av oid large, high fat or highly spiced meals for 24-48 hours. ? Constipation can be a side effect of narcotic pain medication. Take stool softeners, inc rease dietary fiber and drink plenty of water to prevent this. IV Site Care Instructions: ? Monitor IV site for pain, redness, swelling and/or drainage. If present, call your Docto r immediately. ? Minor redness and/or tenderness may be treated with warm, moist compresses for 24-48 hour s. If the area is still red and/or tender after this, notify your Doctor. Call your Doctor if you experience: ? Persistent nausea or vomiting. ? Fever ?101F or chills. ? Increased or uncontrolled pain despite taking pain medications. Call 911 if you experience difficulty breathing, unusual shortness of breath or chest pain. How to Reach Your Doctor After hours, weekends and holidays, call the Hospital Artist [facility] at [phone] and asked to have the doctor who is oncall for your doctor to be paged to your phone number. [facility] for SCOPOLAMINE PATCH Follow the guidelines below. Call your doctor if you notice any unusual symptoms. Remembe r: You are under the influence of medications. Do not drive, drink alcoholic beverages, si gn legal documents or make major decisions during the next 24 hours. The scopolamine patch is used to prevent nausea and vomiting caused by motion sickness or f rom anesthesia. The patch can be worn for 24-72 hours after surgery, depending on how you feel. After liyah ving the patch, fold it closed with the sticky side in and throw it away in a place where pe ts and children cannot reach it. Always wash your hands with soap and water after handling the patch and do not touch your e yes. Less serious side effects may include: ? Drowsiness ? Dizziness ? Dry mouth ? Dry eyes ? Feeling restless ? Memory problems IF YOU SEE ANY OF THE SERIOUS SIDE EFFECTS LISTED BELOW, CALL YOU DOCTOR AND REMOVE THE PATCH: ? Eye pain ? Seeing halos around lights ? Blurred vision ? Confusion ? Agitation ? Hallucinations ? Unusual thoughts or behaviors ? Urination less than usual or not at all documented in this encounter Medications at Time of Discharge + + + +---------+ + + | Medication | Sig | Dispensed | Refills | Start | End Date | | | | | | Date | | + + + +---------+ + + | acetylcysteine | Take 600 mg by mouth | | 0 | | | | (NAC) 600 mg oral | two times daily. | | | | | | capsule | | | | | | + + + +---------+ + + | acyclovir 200 mg | Take 400 mg by mouth | | 0 | | | | oral capsule | once daily. | | | | | + + + +---------+ + + | ascorbic | Take 1 tablet by | | 0 | | | | acid/collagen hydr | mouth once daily. | | | | | | (COLLAGEN PLUS | | | | | | | VITAMIN C ORAL) | | | | | | + + + +---------+ + + | Ca carb-Ca gluc-Mg | Take 1 tablet by | | 0 | | | | ox-Mg gluco | mouth once daily at | | | | | | (CALCIUM MAGNESIUM) | bedtime. | | | | | | 500 mg calcium -250 | | | | | | | mg oral tablet | | | | | | + + + +---------+ + + | charcoal/calcium | Take 1 tablet by | | 0 | | | | carbonate (ACTIVATED | mouth once daily. | | | | | | CHARCOAL-CALCIUM | | | | | | | CAR ORAL) | | | | | | + + + +---------+ + + | D-MANNOSE ORAL | Take 1 tablet by | | 0 | | | | | mouth once daily. | | | | | + + + +---------+ + + | insulin glargine | Inject 18 Units | | 0 | | | | U-300 conc (TOUJEO | under the skin | | | | | | MAX U-300 SOLOSTAR) | (SUBC) once daily. | | | | | | 300 unit/mL (3 mL) | | | | | | | subcutaneous insulin | | | | | | | pen | | | | | | + + + +---------+ + + | L-LYSINE ORAL | Take 1 tablet by | | 0 | | | | | mouth once daily. | | | | | + + + +---------+ + + | Lactobac | Take 1 tablet by | | 0 | | | | no.41/Bifidobact | mouth once daily. | | | | | | no.7 (PROBIOTIC-10 | | | | | | | ORAL) | | | | | | + + + +---------+ + + | liraglutide | Inject 1.8 mg under | | 0 | | | | (VICTOZA 2-CHERRY) 0.6 | the skin (SUBC). | | | | | | mg/0.1 mL (18 mg/3 | | | | | | | mL) subcutaneous pen | | | | | | | injector | | | | | | + + + +---------+ + + | losartan 25 mg | Take 25 mg by mouth | | 0 | | | | oral tablet | once daily. | | | | | + + + +---------+ + + | LOVASTATIN ORAL | Take 40 mg by mouth | | 0 | | | | | once daily. | | | | | + + + +---------+ + + | MAGNESIUM OXIDE | Take 400 mg by mouth | | 0 | | | | ORAL | once daily at | | | | | | | bedtime. | | | | | + + + +---------+ + + | multivitamin oral | Take 1 tablet by | | 0 | | | | tablet | mouth once daily. | | | | | + + + +---------+ + + | omeprazole 40 mg | Take 40 mg by mouth | | 0 | | | | oral capsule,delayed | once daily. | | | | | | release(DR/EC) | Administer 30 to 60 | | | | | | | minutes before meals | | | | | + + + +---------+ + + | Oregano Oil 1,500 | Take 1 tablet by | | 0 | | | | mg oral capsule | mouth once daily. | | | | | + + + +---------+ + + | pioglitazone | Take 30 mg by mouth | | 0 | | | | (ACTOS) 30 mg oral | once daily. | | | | | | tablet | | | | | | + + + +---------+ + + | Zinc 50 mg oral | Take 50 mg by mouth | | 0 | | | | tablet | once daily. | | | | | + + + +---------+ + + | | Take 1 tablet by | 20 | 0 | 02/08/20 | | | amoxicillin-clavulan | mouth every twelve | tablet | | 19 | 9 | | ate 875-125 mg oral | hours for 10 days. | | | | | | tablet | | | | | | + + + +---------+ + + documented as of this encounter Plan of Treatment +--------+ + + + + | Date | Type | Specialty | Care Team | Description | +--------+ + + + + | 11/27/ | Video/TeleH | Otolaryngology | Erik Lambert | | | 2020 | ealth-Sched | | MD Jacoby [address] | | | | uled | | [address] | | | | | | [facility] [place] | | | | | | [address] | | | | | | [phone] | | | | | | | | +--------+ + + + + + +---------+--------+ + + | Name | Type | Priori | Associated Diagnoses | Order Schedule | | | | ty | | | + +---------+--------+ + + | INTRAPROCEDURE | Imaging | Routin | | One Time for 1 | | IMAGING | | e | | Occurrences starting | | | | | | 02/07/2019 until | | | | | | 02/07/2019, 1 | | | | | | completed | + +---------+--------+ + + documented as of this encounter Procedures + +--------+ + + + | Procedure Name | Priori | Date/Time | Associated Diagnosis | Comments | | | ty | | | | + +--------+ + + + | PROCEDURE NOTE | Routin | 02/07/2019 | | Results for this | | | e | 2:32 PM | | procedure are in the | | | | PDT | | results section. | + +--------+ + + + | CAPILLARY BLOOD | Routin | 02/07/2019 | | Results for this | | GLUCOSE (NO CHG), | e | 10:37 AM | | procedure are in the | | POC | | PDT | | results section. | + +--------+ + + + | SURGICAL PATHOLOGY | Routin | 02/07/2019 | | Results for this | | | e | 10:16 AM | | procedure are in the | | | | PDT | | results section. | + +--------+ + + + | PERLA LANG (ALL | Routin | 02/07/2019 | | Results for this | | SPEC TYPES EXCEPT | e | 9:26 AM | | procedure are in the | | BLOOD) | | PDT | | results section. | + +--------+ + + + | MAXILLARY ANTROSTOMY | Electi | 02/07/2019 | CHRONIC | | | WITH TISSUE REMOVAL | ve | 8:42 AM | PANSINUSITIS | | | WITH IMAGE GUIDANCE | Surgic | PDT | | | | | al | | | | + +--------+ + + + | INTRAPROCEDURE | Routin | 02/07/2019 | | Results for this | | IMAGING | e | 7:07 AM | | procedure are in the | | | | PDT | | results section. | + +--------+ + + + documented in this encounter Results PROCEDURE NOTE (02/07/2019 2:32 PM PDT)CAPILLARY BLOOD GLUCOSE (NO CHG), POC (02/07/2019 1 0:37 AM PDT) + +---------+ + + + | Component | Value | Ref Range | Performed | Pathologist | | | | | At | Signature | + +---------+ + + + | BLOOD | 171 (H) | 70 - 99 mg/dL | [facility], | | | GLUCOSE, | | | POINT OF | | | POC | | | CARE TESTS | | + +---------+ + + + + + | Specimen | + + | Blood | + + + + + + + | Performing | Address | City/State/Zipcode | Phone Number | | Organization | | | | + + + + + | [facility] | [address] | [place] [address] | | | OF CARE TESTS | | | | + + + + + SURGICAL PATHOLOGY (02/07/2019 10:16 AM PDT) + + + + + + | Component | Value | Ref Range | Performed | Pathologist | | | | | At | Signature | + + + + + + | Clinical | pansinusitis | | [facility] | | | History | | | DEPARTMENT | | | | | | OF | | | | | | PATHOLOGY | | + + + + + + | Final | A. Bilateral sinus | | [facility] | Electronically | | Pathologic | contents: Respiratory | | DEPARTMENT | signed by Amadeo | | Diagnosis | mucosa with patchy | | OF | A MD Marlee on | | | dispersed chronic | | PATHOLOGY | 02/12/2019 at | | | inflammation (without | | | 1:57 PM | | | accompanying | | | | | | eosinophils) Lamellar | | | | | | bone with reactive | | | | | | changes Negative for | | | | | | dysplasiaCase seen | | | | | | by:Kee Camacho DO | | | | | | | | | | | | Pathology ResidentDavid | | | | | | MD Marlee | | | | | | | | | | | | Pathologist My | | | | | | electronic signature | | | | | | indicates that I have | | | | | | personally reviewed all | | | | | | diagnostic slides, the | | | | | | gross and/or microscopic | | | | | | portion of this report | | | | | | and formulated the final | | | | | | diagnosis. | | | | + + + + + + | Gross | Received is one specimen | | [facility] | | | Description | fresh in a container | | DEPARTMENT | | | | labeled with the | | OF | | | | patient's name (initials | | PATHOLOGY | | | | [facility]) and medical record | | | | | | number [id number]. | | | | | | Sinus, bilateral sinus | | | | | | contents: Received | | | | | | labeled "bilateral sinus | | | | | | contents-1" is a 2.8 x | | | | | | 1.6 x 0.3 cm aggregate | | | | | | of jones-pink soft tissue | | | | | | fragments, firm | | | | | | jones-white bony | | | | | | fragments, and | | | | | | translucent mucoid | | | | | | material. Filtered and | | | | | | submitted entirely in | | | | | | A1, following light | | | | | | decalcification.([facility] | | | | | | 2) | | | | + + + + + + | Ancillary | Analyte specific | | [facility] | | | Information | reagents are used in | | DEPARTMENT | | | | many laboratory tests | | OF | | | | necessary for standard | | PATHOLOGY | | | | medical care. This test | | | | | | was developed and its | | | | | | performance | | | | | | characteristics | | | | | | determined by [facility] | | | | | | laboratories. It has not | | | | | | been cleared or | | | | | | approved by the US Food | | | | | | and Drug Administration | | | | | | (FDA). FDA does not | | | | | | require this test to go | | | | | | through premarket FDA | | | | | | review. This test is | | | | | | used for clinical | | | | | | purposes. It should not | | | | | | be regarded as | | | | | | investigational or for | | | | | | research. This | | | | | | laboratory is certified | | | | | | under the Clinical | | | | | | Laboratory Improvement | | | | | | Amendments (CLIA) as | | | | | | qualified to perform | | | | | | high complexity clinical | | | | | | laboratory testing. If | | | | | | immunohistochemical | | | | | | analysis (IHC) was | | | | | | performed concurrently | | | | | | with flow cytometry, the | | | | | | IHC was done to allow | | | | | | assessment of | | | | | | immunoarchitecture, | | | | | | which is not supplied by | | | | | | flow cytometry. Flow | | | | | | cytometry enables better | | | | | | assessment of clonality | | | | | | and antigen aberrancy | | | | | | than IHC. Appropriate | | | | | | positive controls and/or | | | | | | negative controls were | | | | | | used for all stains, | | | | | | including | | | | | | immunohistochemical | | | | | | stains, special stains, | | | | | | and in situ | | | | | | hybridization, and these | | | | | | reacted appropriately. | | | | + + + + + + + + | Specimen | + + | Tissue - Sinus | + + + + + + + | Performing | Address | City/State/Zipcode | Phone Number | | Organization | | | | + + + + + | [facility] | [address] | [place] [address] | | | PATHOLOGY | [address] | | | + + + + + CULTURE, AFB (ALL SPEC TYPES EXCEPT BLOOD) (02/07/2019 9:26 AM PDT) + + | Specimen | + + | Swab - Sinus | + + + + + | Narrative | Performed At | + + + | Culture Report: No acid fast bacteria isolated at 6 weeks. AFB | [facility] | | Smear: AFB not detected | [facility] | | | [facility] | + + + + + + + + | Performing | Address | City/State/Zipcode | Phone Number | | Organization | | | | + + + + + | [facility] | [address] | [place] [address] | | | [place] | | | | + + + + + INTRAPROCEDURE IMAGING (02/07/2019 7:07 AM PDT) + + | Specimen | + + | | + + + + + | Narrative | Performed At | + + + | See admission or procedure notes for details of any intraprocedure | [facility] | | images obtained. | RADIOLOGY | + + + + +---------+ + + | Performing | Address | City/State/Zipcode | Phone Number | | Organization | | | | + +---------+ + + | [facility] | | | | + +---------+ + + documented in this encounter Visit Diagnoses Not on filedocumented in this encounter Administered Medications + +--------+ +--------+------+------+ | Medication Order | MAR | Action | Dose | Rate | Site | | | Action | Date | | | | + +--------+ +--------+------+------+ | acetaminophen (TYLENOL) tablet | Given | 02/08/20 | 650 mg | | | | 650 mg 650 mg, oral, EVERY 4 | | 19 1:12 | | | | | HOURS NEEDED, Starting Mon | | PM PDT | | | | | 02/07/19 at 1308, Until Mon | | | | | | | 02/07/19 at 2031, mild pain, first | | | | | | | line | | | | | | + +--------+ +--------+------+------+ +---+---+ | | | +---+---+ + +-------+ +--------+---+---+ | fentaNYL (SUBLIMAZE) injection | Given | 02/08/20 | 50 mcg | | | | 25-50 mcg 25-50 mcg, | | 19 11:14 | | | | | intravenous, POSTPROCEDURE PRN, 8 | | AM PDT | | | | | doses, Starting 02/07/19 at | | | | | | | 0908, Until 02/07/19 at 2031, | | | | | | | severe pain while in Phase I | | | | | | | Recovery | | | | | | + +-------+ +--------+---+---+ +-------+ +--------+---+---+ | Given | 02/08/20 | 25 mcg | | | | | 19 11:10 | | | | | | AM PDT | | | | +-------+ +--------+---+---+ | Given | 02/08/20 | 25 mcg | | | | | 19 11:08 | | | | | | AM PDT | | | | +-------+ +--------+---+---+ +---+---+ | | | +---+---+ + + + +---+---+---+ | lactated ringers IV 10 mL/hr, | given by | 02/08/20 | | | | | intravenous, PROCEDURE | | 19 9:06 | | | | | CONTINUOUS, Starting Thu02/07/19 | anesthes | AM PDT | | | | | at 0715, Until Thu02/07/19 at | iology | | | | | | 2 | | | | | | + + + +---+---+---+ +---------+ +---+---+---+ | New Bag | 02/08/20 | | | | | | 19 7:33 | | | | | | AM PDT | | | | +---------+ +---+---+---+ + +---+ | | | + +---+ | lactated ringers IV 500 mL, | | | intravenous, POSTPROCEDURE PRN, 1 | | | dose, Starting Thu02/07/19 at | | | 0908, Until Thu02/07/19 at 2031, | | | nausea/vomiting due to | | | dehydration | | + +---+ | | | + +---+ | lidocaine (XYLOCAINE) 10 mg/mL | | | (1 %) injection subcutaneous, | | | PREPROCEDURE PRN, Starting Mon | | | 02/07/19 at 0707, Until Mon | | | 02/07/19 at 2031, IV start | | + +---+ | | | + +---+ | naloxone (NARCAN) injection | | | intravenous, POSTPROCEDURE PRN, | | | Starting Thu02/07/19 at 0908, | | | Until Thu02/07/19 at 2031, | | | hypopnea | | + +---+ | | | + +---+ + +-------+ +------+---+---+ | oxyCODONE (immediate release) | Given | 02/08/20 | 5 mg | | | | (ROXICODONE) tablet 5 mg 5 mg, | | 19 11:32 | | | | | oral, EVERY 4 HOURS NEEDED, | | AM PDT | | | | | Starting Thu02/07/19 at 1047, | | | | | | | Until Thu02/07/19 at 2031, severe | | | | | | | pain | | | | | | + +-------+ +------+---+---+ +---+---+ | | | +---+---+ + +-------+ + +---+---+ | oxymetazoline (AFRIN) 0.05 % | Given | 02/08/20 | 2 sprays | | | | nasal spray 2 spray 2 spray, | | 19 7:49 | | | | | both nostrils, EVERY 15 MINUTES, | | AM PDT | | | | | First dose on Thu02/07/19 at | | | | | | | 0715, Until Discontinued | | | | | | + +-------+ + +---+---+ + +---+ | | | + +---+ | oxymetazoline (AFRIN) 0.05 % | | | nasal spray 1 dose, Starting Mon | | | 02/07/19 at 0709, Until Mon | | | 02/07/19 at 0749 | | + +---+ | | | + +---+ | prochlorperazine (COMPAZINE) | | | injection 5-10 mg 5-10 mg, | | | intravenous, EVERY 6 HOURS | | | NEEDED, Starting Thu02/07/19 at | | | 1047, Until Thu02/07/19 at 2031, | | | nausea/vomiting, first line | | + +---+ | | | + +---+ | promethazine (PHENERGAN) | | | injection 6.25-12.5 mg 6.25-12.5 | | | mg, intravenous, POSTPROCEDURE | | | PRN, 1 dose, Starting Thu02/07/19 | | | at 0908, Until Thu02/07/19 at | | | 2032, nausea/vomiting, 1st line | | + +---+ | | | + +---+ + + + +---------+---+------+ | scopolamine (TRANSDERM-SCOP) 1 | Applied | 02/08/20 | 1 patch | | Neck | | mg over 3 days 1 patch 1 patch, | Patch | 19 7:51 | | | | | transdermal, EVERY 72 HOURS, 1 | | AM PDT | | | | | dose, First dose on Thu02/07/19 | | | | | | | at 0715 | | | | | | + + + +---------+---+------+ + +---+ | | | + +---+ | scopolamine (TRANSDERM-SCOP) 1 | | | mg over 3 days 1 dose, Starting | | | 02/07/19 at 0709, Until Mon | | | 02/07/19 at 2031 | | + +---+ | | | + +---+ documented in this encounter
--- OUTSIDE RECORDS SUMMARY | ~2019-12-30 | XMS | Encounter Summary ---
Demographics + + + | Address | [address] | | | [place] [address] | + + + | Home Phone | | + + + | Preferred Language | Unknown | + + + | Marital Status | Single | + + + | Zoroastrianism Affiliation | NRP | + + + | Race | White | + + + | Ethnic Group | Not or | + + + Author + + + | Author | [facility] | + + + | Organization | [facility] | + + + | Address | Unknown | + + + | Phone | Unavailable | + + + Support + + +---------+ + | Name | Relationship | Address | Phone | + + +---------+ + | Kiara Jaimes | ECON | Unknown | | + + +---------+ + Care Team Providers + +------+ + | Care Turbine Mechanic Name | Role | Phone | + +------+ + | Meagan Ayala MD | PCP | | + +------+ + Reason for Visit Intake Referral (Routine) + +--------+ + + + + | Status | Reason | Specialty | Diagnoses / | Referred By | Referred To | | | | | Procedures | Contact | Contact | + +--------+ + + + + | Authorized | | Pulmonary | Diagnoses | Meagan Ayala | Pul Faculty | | | | Disease | Other forms | MD Yvette 2019 | 3rd [facility] | | | | | of dyspnea | [address] | [address] | | | | | Other | [place], | [address] | | | | | disorders of | [place] [address] | Physician's | | | | | lung | Phone: | Pavilion, | | | | | Procedures | [phone] | 3rd Floor | | | | | [place] NEW | Fax: | [place], [place] | | | | | PATIENT | [phone] | [address] | | | | | LEVEL V [place] | | Phone: | | | | | EST PATIENT | | [phone] | | | | | LEVEL V [place] | | Fax: | | | | | EVAL OF | | [phone] | | | | | BRONCHOSPASM | | | + +--------+ + + + + Encounter Details +--------+ + + + + | Date | Type | Department | Care Team | Description | +--------+ + + + + | 12/22/ | Results/Int | Pulmonary Function | | Dyspnea on exertion | | 2019 | erpretation | Lab at [facility] [address] | | (Primary Dx) | | | | [address] | | | | | | [facility] | | | | | | [place], [place] | | | | | | [address] | | | | | | [phone] | | | +--------+ + + + [...] documented as of this encounter Progress Notes Glen Quezada MD - 12/22/2018 8:05 AM PDT Refer to PFT report. doc umented in this encounter Plan of Treatment +--------+ + + + + | Date | Type | Specialty | Care Team | Description | +--------+ + + + + | 11/27/ | Video/TeleH | Otolaryngology | ZoeddieErik mueller | | | 2020 | ana-Sched | | MD Jacoby [address] | | | | giovany | | [address] | | | | | | [place], [place] | | | | | | [address] | | | | | | [phone] | | | | | | | | +--------+ + + + + documented as of this encounter Procedures + +--------+ + + + | Procedure Name | Priori | Date/Time | Associated Diagnosis | Comments | | | ty | | | | + +--------+ + + + | [place] DIFFUSING | Routin | 12/26/2018 | Dyspnea on | | | CAPACITY | e | 4:40 PM | exertion | | | | | PDT | | | + +--------+ + + + | [place] PLETHYSMOGRAPHY | Routin | 12/26/2018 | Dyspnea on | | | FOR DETERM OF LUNG | e | 4:40 PM | exertion | | | VOLUMES | | PDT | | | + +--------+ + + + | [place] EVAL OF | Routin | 12/26/2018 | Dyspnea on | | | BRONCHOSPASM | e | 4:40 PM | exertion | | | | | PDT | | | + +--------+ + + + documented in this encounter Visit Diagnoses + + | Diagnosis | + + | Dyspnea on exertion - Primary Other dyspnea and respiratory abnormality | + + documented in this encounter"
--- OUTSIDE RECORDS SUMMARY | ~2019-12-30 | XMS | Encounter Summary ---
Demographics + + + | Address | [address] | | | [place] [address] | + + + | Home Phone | | + + + | Preferred Language | Unknown | + + + | Marital Status | Single | + + + | Yazidism Affiliation | NRP | + + + | Race | White | + + + | Ethnic Group | Not or | + + + Author + + + | Author | [facility] | + + + | Organization | [facility] | + + + | Address | Unknown | + + + | Phone | Unavailable | + + + Support + + +---------+ + | Name | Relationship | Address | Phone | + + +---------+ + | Kiara Jaimes | ECON | Unknown | | + + +---------+ + Care Team Providers + +------+ + | Care Curator Horticultural Museum Name | Role | Phone | + +------+ + PCP | Unavailable | + +------+ + Encounter Details +--------+ + + + + | Date | Type | Department | Care Team | Description | +--------+ + + + + | 04/06/ | Documentati | Anesthesiology | Unknown . | | | 2001 | on | [address] | | | | | | [place], | | | | | | [place] [address] | | | +--------+ + + + [...] 2020 | Rojelio | | MD Jacoby [address] | | | | giovany | | [address] | | | | | | [place], [place] | | | | | | [address] | | | | | | [phone] | | | | | | | | +--------+ + + + + documented as of this encounter Procedures + +--------+ + + + | Procedure Name | Priori | Date/Time | Associated Diagnosis | Comments | | | ty | | | | + +--------+ + + + | ANESTHESIA/SEDATION | | 04/06/2002 | | Results for this | | | | 11:04 AM | | procedure are in the | | | | PST | | results section. | + +--------+ + + + documented in this encounter Results ANESTHESIA/SEDATION (04/06/2002 11:04 AM PST) + + + | Narrative | Performed At | + + + | Ordered by an unspecified provider. | | + + + + + | Transcriptions | + + | 04/06/2002 11:04 AM [facility] Anesthesia PostOp Report | | | | Patient: HELEN LOBATO Med Rec: [id number] Sex F Bdate: 1955 | | Date/Time Data | | Entered Into [facility] | | Anesth PostOp | | Surgery Date [id number] 04/06/02 11:04 | | Anesthesiologist GAY CALDWELL 04/06/02 11:04 | | Resident Anesthesiolog GEO SALVADOR 04/06/02 11:04 | | | + + documented in this encounter Visit Diagnoses Not on filedocumented in this encounter"
--- OUTSIDE RECORDS SUMMARY | ~2019-12-30 | XMS | Encounter Summary ---
Demographics + + + | Address | [address] | | | [place] [address] | + + + | Home Phone | | + + + | Preferred Language | Unknown | + + + | Marital Status | Single | + + + | Congregation Affiliation | NRP | + + + | Race | White | + + + | Ethnic Group | Not or | + + + Author + + + | Author | [facility] | + + + | Organization | [facility] | + + + | Address | Unknown | + + + | Phone | Unavailable | + + + Support + + +---------+ + | Name | Relationship | Address | Phone | + + +---------+ + | Kiara Jaimes | ECON | Unknown | | + + +---------+ + Care Team Providers + +------+ + | Care Sap Sd Analyst Name | Role | Phone | + +------+ + PCP | Unavailable | + +------+ + Encounter Details +--------+ + + + + | Date | Type | Department | Care Team | Description | +--------+ + + + + | 01/28/ | Document-Sc | UNKNOWN DEPARTMENT | Other, Faculty | | | 2010 | anned | [address] | [phone] | | | | | [address] | | | | | | [place], [place] | | | | | | [address] | | | +--------+ + + + [...] 2020 | Rojelio | | MD Jacoby [address] | | | | giovany | | [address] | | | | | | [place], [place] | | | | | | [address] | | | | | | [phone] | | | | | | | [...]
--- OUTSIDE RECORDS SUMMARY | ~2019-12-30 | XMS | Encounter Summary ---
Demographics + + + | Address | [address] | | | [place] [address] | + + + | Home Phone | | + + + | Preferred Language | Unknown | + + + | Marital Status | Single | + + + | Alevism Affiliation | NRP | + + + | Race | White | + + + | Ethnic Group | Not or | + + + Author + + + | Author | [facility] | + + + | Organization | [facility] | + + + | Address | Unknown | + + + | Phone | Unavailable | + + + Support + + +---------+ + | Name | Relationship | Address | Phone | + + +---------+ + | Kiara Jaimes | ECON | Unknown | | + + +---------+ + Care Team Providers + +------+ + | Care Access Nurse Name | Role | Phone | + +------+ + | Meagan Ayala MD | PCP | | + +------+ + Encounter Details +--------+ + + + + | Date | Type | Department | Care Team | Description | +--------+ + + + + | 10/24/ | Cdl Bulk Driver | [facility] | Clair Norman | | | 2020 | | Center at [facility] [address] | MD Wendy [address] | | | | | [facility] | [facility] | | | | | [facility] and | [place], [place] | | | | | [facility], [address], | [address] | | | | | [facility] Floor | [phone] | | | | | [place], [place] | | | | | | [address] | | | | | | [phone] | | | +--------+ + + + [...] 2020 | marcus-Sched | | MD Jacoby [address] | | | | giovany | | [address] | | | | | | [facility] [place] | | | | | | [address] | | | | | | [phone] | | | | | | | | +--------+ + + + + documented as of this encounter Visit Diagnoses Not on filedocumented in this encounter"
--- OUTSIDE RECORDS SUMMARY | ~2019-12-30 | XMS | Encounter Summary ---
Demographics + + + | Address | [address] | | | [place] [address] | + + + | Home Phone | | + + + | Preferred Language | Unknown | + + + | Marital Status | Single | + + + | Lutheran Affiliation | NRP | + + + [...] Team Providers + +------+ + | Care Kickboxing Instructor Name | Role | Phone | + +------+ + PCP | Unavailable | + +------+ + Encounter Details +--------+ + + + + | Date | Type | Department | Care Team | Description | +--------+ + + + + | 04/30/ | Letter-Garcia | | Letters, Other | Letters | | 2002 | scribed | | | | +--------+ + + [...] as of this encounter Progress Notes Interface, Wood Barrel Reconditioner In - 12/13/2005 3:11 AM [facility] [place] [facility] and [place] [address], [place] [address] or April 30, 2002 Nivia Lin M.D. Department of Surgery, [facility], [place] [address] RE: HELEN MCKEON MR #: [id number] Dear Juanita: Just a brief note to give you followup on Ms. Mckeon and to thank you again for coming up to assist us for her operating care. As you know, we accompanied her to the Operating Room on April 05, 2002, for a redo-laparoscopic Margarette fundoplication following an initial fundoplication a little over a year ago. At operation, we found her wrap to be intact but to have herniated into her chest and for her diaphragmatic crura to be disrupted. We were able to reduce her intact wrap and close her crura with pledgetted sutures, and then we established the relationship of her wrap to her GE junction. Ms. Mckeon went on to do quite well while in-house, and since that time, has continued her nice progress. She has done well enough that I have asked her to return to see me on an as-needed basis. I am enclosing her operative note and discharge summary for your records. Please let me know if I can provide you with any other additional information. I wish the best for the holiday season and the upcoming New Year. Yours sincerely, Mika Mitchell M.D. [facility] / [id number] / [id number] / [id number] / [id number] cc: Rosendo Jones M.D. [address] [place], [place] [id number] signed by Interface, Wood Barrel Reconditioner In at 12/13/2005 3:11 AM PDTdocumented in this encounter Plan of Treatment +--------+ + + + + | Date | Type | Specialty | Care Team | Description | +--------+ + + + + | 11/27/ | Video/TeleH | Otolaryngology | Erik Lambert | | | 2020 | anah-Sched | | MD Jacoby [address] | | | | giovany | | [facility] | | | | | | [place] | | | | | | [address] | | | | | | [phone] | | | | | | | | +--------+ + + + + documented as of this encounter Visit Diagnoses Not on filedocumented in this encounter"
--- OUTSIDE RECORDS SUMMARY | ~2019-12-30 | XMS | Encounter Summary ---
Demographics + + + | Address | [address] | | | [place] [address] | + + + | Home Phone | | + + + | Preferred Language | Unknown | + + + | Marital Status | Single | + + + | Orthodox Affiliation | NRP | + + [...] Team Providers + +------+ + | Care Remote Sensing Scientist Name | Role | Phone | + +------+ + PCP | Unavailable | + +------+ + Encounter Details +--------+ + + + + | Date | Type | Department | Care Team | Description | +--------+ + + + + | 04/27/ | Office | | Note, Outpatient | Progress Note | | 2001 | Visit-Trans | | Clinic | | [...] as of this encounter Progress Notes Interface, Nanotechnologist In - 11/17/2005 1:03 AM PDTCLINIC DATE: 04/27/2002 [facility] PHONE CONSULTATION Phone call from the patient who had a laparoscopic Margarette fundoplication on April 05, 2002, and was released to 2 weeks of light duty beginning on May 23, 2002; however, her job noted that they do have a 3-week light duty project which begins the week prior on May 16, 2002. This would be an wx-sji-cmowae job with no contact with inmates, and they wanted to be sure that she could do this. The patient's boss was called by Dr. Fabiola Davison and was told that there would be no problem with her pursuing this job. Alysa ArguelloADoniC. JOSUE / [id number] / [id number] / [id number] / [id number] C: 06/01/2002 lh documented in this encounter Plan of Treatment +--------+ + + + + | Date | Type | Specialty | Care Team | Description | +--------+ + + + + | 11/27/ | Video/TeleH | Otolaryngology | Erik Lambert | | | 2020 | ealth-Sched | | MD Jacoby [address] | | | | giovany | | [address] | | | | | | [place], [place] | | | | | | [address] | | | | | | [phone] | | | | | | | | +--------+ + + + + documented as of this encounter Visit Diagnoses Not on filedocumented in this encounter"
--- OUTSIDE RECORDS SUMMARY | ~2019-12-30 | XMS | Encounter Summary ---
Demographics + + + | Address | [address] | | | [place] [address] | + + + | Home Phone | | + + + | Preferred Language | Unknown | + + + | Marital Status | Single | + + + | Pentecostalism Affiliation | NRP | + + + | Race | White | + + + | Ethnic Group | Not or | + + + Author + + + | Author | [facility] | + + + | Organization | [facility] | + + + | Address | Unknown | + + + | Phone | Unavailable | + + + Support + + +---------+ + | Name | Relationship | Address | Phone | + + +---------+ + | Kiara Jaimes | ECON | Unknown | | + + +---------+ + Care Team Providers + +------+ + | Care Speech Therapist Technician Name | Role | Phone | + [...] | | | | [id number] [facility] | [place], [place] | | | | | [address] | [address] | | | | | [place], [place] | [phone] | | | | | [address] | | | | | | [phone] | | | +--------+ + + + [...] 5 | | | | | | [place], [place] | | | | | | [address] | | | | | | [phone] | | | | | | | [...] | + + + + + | [facility] | [address] [facility] | [place] [address] | | | PATHOLOGY | [address] | | | + + + + + | [facility] | [address] [facility] | [place] [address] | | | PATHOLOGY | [address] [...] + + | Performing | Address | City/[facility] | Phone Number | | Organization [...] | + + + + + | [facility] | [address] | [place] [address] | | | PATHOLOGY | [address] | | | + + + + + | [facility] | [address] | [place] [address] | | | PATHOLOGY | [address] | | | + + + + + documented in this encounter Visit Diagnoses Not on filedocumented in this encounter"
--- OUTSIDE RECORDS SUMMARY | ~2019-12-30 | XMS | Encounter Summary ---
Demographics + + + | Address | [address] | | | [place] [address] | + + + | Home Phone | | + + + | Preferred Language | Unknown | + + + | Marital Status | Single | + + + | Denominational Affiliation | NRP | + + + | Race | White | + + + | Ethnic Group | Not or | + + + Author + + + | Author | [facility] | + + + | Organization | [facility] | + + + | Address | Unknown | + + + | Phone | Unavailable | + + + Support + + +---------+ + | Name | Relationship | Address | Phone | + + +---------+ + | Kiara Jaimes | ECON | Unknown | | + + +---------+ + Care Team Providers + +------+ + | Care Conference Center Coordinator Name | Role | Phone | + +------+ + | Meagan Ayala MD | PCP | | + +------+ + Encounter Details +--------+ + + + + | Date | Type | Department | Care Team | Description | +--------+ + + + + | 12/30/ | Documentati | [facility] | Erik Lambert | | | 2019 | on | Center at [facility] [address] | MD Jacoby [address] | | | | | [address] [facility] | [address] | | | | | for Health and | [facility] [place] | | | | | Healing, [address], | [address] | | | | | 5th Floor | [phone] | | | | | [place], [place] | | | | | | [address] | | | | | | [phone] | | | +--------+ + + + [...] | +--------+ + + + + | 07// | Video/TeleH | Otolaryngology | Erik Lambert | | | 2020 | anah-Sched | | MD Jacoby [address] | | | | giovany | | [address] | | | | | | [place], [place] | | | | | | [address] | | | | | | [phone] | | | | | | | | +--------+ + + + + documented as of this encounter Visit Diagnoses Not on filedocumented in this encounter"
--- OUTSIDE RECORDS SUMMARY | ~2019-12-30 | XMS | Encounter Summary ---
Demographics + + + | Address | [address] | | | [place] [address] | + + + | Home Phone | | + + + | Preferred Language | Unknown | + + + | Marital Status | Single | + + + | Rastafari Affiliation | NRP | + + + [...] Team Providers + +------+ + | Care Banquet Line Cook Name | Role | Phone | + +------+ + PCP | Unavailable | + +------+ + Encounter Details +--------+ + + + + | Date | Type | Department | Care Team | Description | +--------+ + + + + | 12/31/ | Results | | Other, Faculty | | | 1991 | Only | | [phone] | | +--------+ + + + + [...] 5 | | | | | | [place], [place] | | | | | | [address] | | | | | | [phone] | | | | | | | | +--------+ + + + + documented as of this encounter Procedures + +--------+ + + + | Procedure Name | Priori | Date/Time | Associated Diagnosis | Comments | | | ty | | | | + +--------+ + + + | CT HEAD WO CONTRAST | Routin | 01/01/1992 | | Results for this | | | e | 12:00 PM | | procedure are in the | | | | PDT | | results section. | + +--------+ + + + documented in this encounter Results CT HEAD WO CONTRAST (01/01/1992 12:00 PM PDT) + + + + + + | Component | Value | Ref Range | Performed | Pathologist | | | | | At | Signature | + + + + + + | CT HEAD WO | Radiologist 1: | | | | | CONTRAST | DELILAH-GERARDO DAMICO, | | | | | | ABDOULAYE SHAFER | | | | | | | | | | | | | | | | | | [birth year] CT | | | | | | SCAN BRAIN, WITHOUT | | | | | | CONTRAST:01-01-92 | | | | | | DICTATED:01-01-92 at | | | | | | 2730 hrs CLINICAL | | | | | | HISTORY: New onset | | | | | | seizure. PROCEDURE: | | | | | | Scans of 10 mm slice | | | | | | thickness were obtained | | | | | | through thebrain without | | | | | | the administration of | | | | | | intravenous contrast at | | | | | | 0215 hourson December 31, | | | | | | 1991. The scans were | | | | | | reviewed at brain, | | | | | | subdural andbone | | | | | | windows. FINDINGS: No | | | | | | mass effect, midline | | | | | | shift or intracranial | | | | | | hemorrhage ispresent. | | | | | | The pineal is | | | | | | calcified at midline. | | | | | | Images viewed at | | | | | | bonewindow showed there | | | | | | to be no evidence of | | | | | | skull fracture. | | | | | | Theventricular system is | | | | | | within normal limits of | | | | | | size for a patient | | | | | | ofthis age. The sulci | | | | | | are most likely also | | | | | | within normal limits | | | | | | andsize for a patient of | | | | | | this age. IMPRESSION: | | | | | | Normal study. END OF | | | | | | IMPRESSION: | | | | + + + + + + + + | Specimen | + + | | + + + + + | Narrative | Performed At | + + + | Ordered by GRETEL LIMA | | + + + + +---------+ + + | Performing | Address | City/State/Zipcode | Phone Number | | Organization | | | | + +---------+ + + | [facility] | | | | | RADIOLOGY | | | | + +---------+ + + documented in this encounter Visit Diagnoses Not on filedocumented in this encounter"
--- OUTSIDE RECORDS SUMMARY | ~2019-12-30 | XMS | Encounter Summary ---
Demographics + + + | Address | [address] | | | [place] [address] | + + + | Home Phone | | + + + | Preferred Language | Unknown | + + + | Marital Status | Single | + + + | Mandaen Affiliation | NRP | + + + | Race | White | + + + | Ethnic Group | Not or | + + + Author + + + | Author | [facility] | + + + | Organization | [facility] | + + + | Address | Unknown | + + + | Phone | Unavailable | + + + Support + + +---------+ + | Name | Relationship | Address | Phone | + + +---------+ + | Kiara Jaimes | ECON | Unknown | | + + +---------+ + Care Team Providers + +------+ + | Care Corporate Communications Specialist Name | Role | Phone | + +------+ + | Meagan Ayala MD | PCP | | + +------+ + Encounter Details +--------+ + + + + | Date | Type | Department | Care Team | Description | +--------+ + + + + | 10/24/ | MyChart | [facility] | Erik Lambert | RE:(No subject) | | 2019 | Encounter | Center at [facility] [address] | NMD [address] | | | | | [address] | [address] | | | | | for Health and | [facility] [place] | | | | | Healing, [address], | [address] | | | | | 5th Floor | [phone] | | | | | [place], [place] | | | | | | [address] | | | | | | [phone] | | | +--------+ + + + [...] 2020 | marcus-Pool | | MD Jacoby [address] | | | | giovany | | [address] | | | | | | [place], [place] | | | | | | [address] | | | | | | [phone] | | | | | | | | +--------+ + + + + documented as of this encounter Visit Diagnoses Not on filedocumented in this encounter"
--- OUTSIDE RECORDS SUMMARY | ~2019-12-30 | XMS | Encounter Summary ---
Demographics + + + | Address | [address] | | | [place] [address] | + + + | Home Phone | | + + + | Preferred Language | Unknown | + + + | Marital Status | Single | + + + | Hindu Affiliation | NRP | + + + [...] Team Providers + +------+ + | Care Artist'S Model Name | Role | Phone | + +------+ + PCP | Unavailable | + +------+ + Encounter Details +--------+ + + + + | Date | Type | Department | Care Team | Description | +--------+ + + + + | 04/07/ | Results | | Jaki Ford MD | | | 2001 | Only | | | | +--------+ + + [...] ealth-Sched | | MD Jacoby [address] | | | | giovany | | [address] | | | | | | [place], [place] | | | | | | [address] | | | | | | [phone] | | | | | | | | +--------+ + + + + documented as of this encounter Procedures + +--------+ + + + | Procedure Name | Priori | Date/Time | Associated Diagnosis | Comments | | | ty | | | | + +--------+ + + + | URINE, MICROSCOPIC | Routin | 04/07/2002 | | Results for this | | EXAM | e | 12:35 PM | | procedure are in the | | | | PST | | results section. | + +--------+ + + + documented in this encounter Results URINE, MICROSCOPIC EXAM (04/07/2002 12:35 PM PST) + + + + + + | Component | Value | Ref Range | Performed | Pathologist | | | | | At | Signature | + + + + + + | SQUAMOUS | Moderate | /hpf | [facility] | | | EPITHELIAL | | | DEPARTMENT | | | | | | OF | | | | | | PATHOLOGY | | + + + + + + | NON-SQUAMOU | None | /hpf | [facility] | | | S EPITH | | | DEPARTMENT | | | | | | OF | | | | | | PATHOLOGY | | + + + + + + | RED CELLS | 0-3 | 0 - 3 /hpf | [facility] | | | | | | DEPARTMENT | | | | | | OF | | | | | | PATHOLOGY | | + + + + + + | WHITE CELLS | 0-2 | 0 - 5 /hpf | [facility] | | | | | | DEPARTMENT | | | | | | OF | | | | | | PATHOLOGY | | + + + + + + | BACTERIA | Few | /hpf | [facility] | | | | | | DEPARTMENT | | | | | | OF | | | | | | PATHOLOGY | | + + + + + + | MUCOUS | None | /lpf | [facility] | | | | | | DEPARTMENT | | | | | | OF | | | | | | PATHOLOGY | | + + + + + + | HYALINE | None | 0 - 1 /lpf | [facility] | | | CASTS | | | DEPARTMENT | | | | | | OF | | | | | | PATHOLOGY | | + + + + + + | GRANULAR | None | /lpf | [facility] | | | CASTS | | | DEPARTMENT | | | | | | OF | | | | | | PATHOLOGY | | + + + + + + | CELLULAR | None | /lpf | [facility] | | | CASTS | | | DEPARTMENT | | | | | | OF | | | | | | PATHOLOGY | | + + + + + + | AMORPHOUS | None | /hpf | [facility] | | | URATES | | | DEPARTMENT | | | | | | OF | | | | | | PATHOLOGY | | + + + + + + | AMORPHOUS | None | /hpf | [facility] | | | PHOSPHATES | | | DEPARTMENT | | | | | | OF | | | | | | PATHOLOGY | | + + + + + + | CALCIUM | None | /hpf | [facility] | | | OXALATE | | | DEPARTMENT | | | DANTE | | | OF | | | | | | PATHOLOGY | | + + + + + + | URIC ACID | None | /hpf | [facility] | | | CRYSTALS | | | DEPARTMENT | | | | | | OF | | | | | | PATHOLOGY | | + + + + + + | TRIPLE P04 | None | /hpf | [facility] | | | CRYSTALS | | | DEPARTMENT | | | | | | OF | | | | | | PATHOLOGY | | + + + + + + | YEAST (LAB) | None | /hpf | [facility] | | | | | | DEPARTMENT | | | | | | OF | | | | | | PATHOLOGY | | + + + + + + | TRICHOMONAS | None | /hpf | [facility] | | | | | [...] + + + | [facility] | [address] | [place] [address] | | | PATHOLOGY | [address] | | | + + + + + | [facility] | [address] | [place] [address] | | | PATHOLOGY | [address] | | | + + + + + documented in this encounter Visit Diagnoses Not on filedocumented in this encounter"
--- OUTSIDE RECORDS SUMMARY | ~2019-12-30 | XMS | Encounter Summary ---
Demographics + + + | Address | [address] | | | [place] [address] | + + + | Home Phone [...] Team Providers + +------+ + | Care Engineering Specialist Technician Name | Role | Phone | [...] | | | disorders of | [place] [address] | Physician's | | | | | lung | Phone: | Pavilion, | | | | | Procedures | [phone] | 3rd Floor | | | | | [place] NEW | Fax: | [place], [place] | | | | | PATIENT | [phone] | [address] | | | | | LEVEL V [place] | | Phone: | | | | | EST PATIENT | | [phone] | | | | | LEVEL V [place] | | Fax: | | | | | EVAL OF | | [phone] | | | | | BRONCHOSPASM | | | + +--------+ + + + + Encounter Details +--------+ + + + + | Date | Type | Department | Care Team | Description | +--------+ + + + + | 12/22/ | Results/Int | Pulmonary Function | | Dyspnea on exertion | | 2019 | erpretation | Lab at [facility] [address] | | (Primary Dx) | | | | [address] | | | | | | [facility] | | | | | | [place], [place] | | | | | | [address] | | | | | | [phone] | | | +--------+ + + + [...] 5 | | | | | | [place], [place] | | | | | | [address] | | | | | | [phone] | | | | | | | | +--------+ + + + + documented as of this encounter Procedures + +--------+ + + + | Procedure Name | Priori | Date/Time | Associated Diagnosis | Comments | | | ty | | | | + +--------+ + + + | [place] DIFFUSING | Routin | 12/26/2018 | Dyspnea on | | | CAPACITY | e | 4:40 PM | exertion | | | | | PDT | | | + +--------+ + + + | [place] PLETHYSMOGRAPHY | Routin | 12/26/2018 | Dyspnea on | | | FOR DETERM OF LUNG | e | 4:40 PM | exertion | | | VOLUMES | | PDT | | | + +--------+ + + + | [place] EVAL OF | Routin | 12/26/2018 | [...]
--- OUTSIDE RECORDS SUMMARY | ~2019-12-30 | XMS | Encounter Summary ---
Demographics + + + | Address | [address] | | | [place] [address] | + + + | Home Phone [...] Team Providers + +------+ + | Care Table Maker Name | Role | Phone | + +------+ + | Meagan Ayala MD | [place] | | + +------+ + Encounter Details +--------+--------+ + + + | Date | Type | Department | Care Team | Description | +--------+--------+ + + + | 02/01/ | Travel | | | | | [...] 2020 | ealth-Sched | | MD Jacoby [address] | | | | giovany | | [address] | | | | | | [place], [place] | | | | | | [address] | | | | | | [phone] | | | | | | | | +--------+ + + + + documented as of this encounter Visit Diagnoses Not on filedocumented in this encounter"
--- OUTSIDE RECORDS SUMMARY | ~2019-12-30 | XMS | Encounter Summary ---
Demographics + + + | Address | [address] | | | [place] [address] | + + + | Home Phone [...] Author + + + | Author | [facility] | + + + | Organization | [facility] | + + + | Address | Unknown | + + + | Phone | Unavailable | + + + Support + + +---------+ + | Name | Relationship | Address | Phone | + + +---------+ + | Kiara Jaimes | ECON | Unknown | | + + +---------+ + Care Team Providers + +------+ + | Care Book Reviewer Name | Role | Phone | + [...] | | | disorders of | [place] [address] | Physician's | | | | | lung | Phone: | Pavilion, | | | | | Procedures | [phone] | 3rd Floor | | | | | [place] NEW | Fax: | [place], [place] | | | | | PATIENT | [phone] | [address] | | | | | LEVEL V [place] | | Phone: | | | | | EST PATIENT | | [phone] | | | | | LEVEL V [place] | | Fax: | | | | | EVAL OF | | [phone] | | | | | BRONCHOSPASM | | | + +--------+ + + + + Encounter Details +--------+ + + + + | Date | Type | Department | Care Team | Description | +--------+ + + + + | 12/22/ | Hospital | Pulmonary Function | Tech, Pfl Adult | | | 2019 | Encounter | Lab at [facility] [address] | [address] | | | | | [address] | [facility], | | | | | [place], | [place] [address] | | | | | [facility] floor [place], | | | | | | [place] [address] | | | | | | [phone] | | | +--------+ + + + [...] + + documented as of this encounter Medications at Time of Discharge + + + +---------+--------+ + | Medication | Sig | Dispensed | Refills | Start | End Date | | | | | | Date | | + + + +---------+--------+ + | acyclovir 200 mg | Take 400 mg by mouth | | 0 | | | | oral capsule | once daily. | | | | | + + + +---------+--------+ + | insulin glargine | Inject 18 [...] | | | | + + + +---------+--------+ + | liraglutide | Inject 1.8 mg under | | 0 | | | | (VICTOZA 2-CHERRY) 0.6 | the skin (SUBC). | | | | | | mg/0.1 mL (18 mg/3 | | | | | | | mL) subcutaneous pen | | | | | | | injector | | | | | | + + + +---------+--------+ + | losartan 25 mg | Take 25 mg by mouth | | 0 | | | | oral tablet | once daily. | | | | | + + + +---------+--------+ + | LOVASTATIN ORAL | Take 40 mg by mouth | | 0 | | | | | once daily. | | | | | + + + +---------+--------+ + | MAGNESIUM OXIDE | Take 400 mg by mouth | | 0 | | | | ORAL | once daily at | | | | | | | bedtime. | | | | | + + + +---------+--------+ + | multivitamin oral | Take 1 tablet by | | 0 | | | | tablet | mouth once daily. | | | | | + + + +---------+--------+ + | pioglitazone | Take 30 mg by mouth | | 0 | | | | (ACTOS) 30 mg oral | once daily. | | | | | | tablet | | | | | | + + + +---------+--------+ + documented as of this encounter Plan of Treatment +--------+ + + + + | Date | Type | Specialty | Care Team | Description | +--------+ + + + + | 11/27/ | Video/TeleH | Otolaryngology | Erik Lambert | | | 2020 | Rojelio | | MD Jacoby [address] | | | | giovany | | [address] | | | | | | [place], [place] | | | | | | [address] | | | | | | [phone] | | | | | | | | +--------+ + + + + documented as of this encounter Procedures + +--------+ + + + | Procedure Name | Priori | Date/Time | Associated Diagnosis | Comments | | | ty | | | | + +--------+ + + + | SPIROMETRY BEFORE / | Routin | 12/22/2018 | Dyspnea, | Results for this | | AFTER BRONCHODIL, | e | 8:04 AM | unspecified type | procedure are in the | | PULM FUNCTION LAB | | PDT | | results section. | + +--------+ + + + documented in this encounter Results SPIROMETRY BEFORE / AFTER BRONCHODIL, PULM FUNCTION LAB (12/22/2018 8:04 AM PDT) + + + + + + | Component | Value | Ref Range | Performed | Pathologist | | | | | At | Signature | + + + + + + | PULMONARY | Site: [facility] and | | [facility] | | | INTERPRETAT | [facility], [address] | [address] | | | [address] | [address] | | DIAGNOSTICS | | | | [address],[place], [place], | | - | | | | [address]CR: [id number] | | PULMONARY | | | | Name: HELEN SHAH | | FUNCTION | | | | MVisit Date: 12/22/2018 | | | | | | Second ID: | | | | | | [id number]: | | | | | | Kaleb TillmanAge: 63 | | | | | | : 1955 Sex: | | | | | | Female Race: | | | | | | CaucasianHeight: 163.50 | | | | | | Cms Weight: 85.00 | | | | | | Kgs BSA: 1.91Order | | | | | | IDs: [id number] | | | | | | Test(s): [...] + + + + + + | GIE61-84% | 2.80 | 2.27 L/sec | [facility] | | | PRE | | | SPECIAL | | | | | | DIAGNOSTICS | | | | | | - | | | | | | PULMONARY | | | | | | FUNCTION | | + + + + + + | FEL61-17% | 123 | % | [facility] | | | PRE (%REF) | | | SPECIAL | | | | | | DIAGNOSTICS | | | | | | - | | | | | | PULMONARY | | | | | | FUNCTION | | + + + + + + | APP97-79% | 3.40 | 2.27 L/sec | [facility] | | | POST | | | SPECIAL | | | | | | DIAGNOSTICS | | | | | | - | | | | | | PULMONARY | | | | | | FUNCTION | | + + + + + + | NZG76-07% | 149 | % | [facility] | [...] | + + + + + | [facility] | [address] | [place], [place] | | | DIAGNOSTICS - | [place] | [address] | | | PULMONARY FUNCTION | | | | + + + + + documented in this encounter Visit Diagnoses + + | Diagnosis | + + | Dyspnea, unspecified type | + + documented in this encounter"
--- OUTSIDE RECORDS SUMMARY | ~2019-12-30 | XMS | Encounter Summary ---
Demographics + + + | Address | [address] | | | [place] [address] | + + + | Home Phone | | + + + | Preferred Language | Unknown | + + + | Marital Status | Single | + + + | Taoist Affiliation | NRP | + + + | Race | White | + + + | Ethnic Group | Not or | + + + Author + + + | Author | [facility] | + + + | Organization | [facility] | + + + | Address | Unknown | + + + | Phone | Unavailable | + + + Support + + +---------+ + | Name | Relationship | Address | Phone | + + +---------+ + | Kiara Jaimes | ECON | Unknown | | + + +---------+ + Care Team Providers + +------+ + | Care Milking Machine Operator Name | Role | Phone | + +------+ + PCP | Unavailable | + +------+ + Encounter Details +--------+ + + + + | Date | Type | Department | Care Team | Description | +--------+ + + + + | 04/06/ | DELETED | Preoperative | Consult, | ANESTHESIA/SEDATION | | 2001 | TRANSCRIPTI | Medicine Clinic at | Anesthesia [address] | | | | ON | [facility] 4th Floor [address] | | | [address] [place], [place] | | | | | Mailcode: [facility] | [address] | | | | | [facility] | | | | | | and Healing, | | | | | | Building 1,4th Floor | | | | | | [place], [place] | | | | | | [address] | | | | | | [phone] | | | +--------+ + + + [...] 2020 | marcus-Sched | | MD Jacoby [address] | | | | giovany | | [address] | | | | | | [place], [place] | | | | | | [address] | | | | | | [phone] | | | | | | | [...]
--- OUTSIDE RECORDS SUMMARY | ~2019-12-30 | XMS | Encounter Summary ---
Demographics + + + | Address | [address] | | | [place] [address] | + + + | Home Phone [...] Author + + + | Author | [facility] | + + + | Organization | [facility] | + + + | Address | Unknown | + + + | Phone | Unavailable | + + + Support + + +---------+ + | Name | Relationship | Address | Phone | + + +---------+ + | Kiara Jaimes | ECON | Unknown | | + + +---------+ + Care Team Providers + +------+ + | Care Credit Card Control Clerk Name | Role | Phone | + [...] | | | | | | | [place], [place] | | | | | | | [address] | | | | | | | Phone: | | | | | | | [phone] | | | | | | | Fax: | | | | | | | [phone] | + +--------+ + + + + Encounter Details +--------+---------+ + + + | Date | Type | Department | Care Team | Description | +--------+---------+ + + + | 07/05/ | Office | [facility] | Erik Lambert | Chronic pansinusitis | | 2019 | Visit | Center at [facility] [address] | [address] | (Primary Dx) | | | | [address] | [address] | | | | | for Health and | [place], [place] | | | | | Healing, Building [address], | [address] | | | | | [address] [place] [address] | [phone] | | | | | [place], [place] | | | | | | [address] | | | | | | [phone] | | | +--------+---------+ + + + [...] might be different from t narinder original. [facility] HISTORY: Helen Bray is a 63 y.o. female who presents to the [facility] for fo llow up of [...] 40 mg by mouth once daily. Ad mine car dispatcher 30 to 60 minutes before meals Oregano [...] 63 y.o. female who presents to the [facility] for follow up of Chronic [...] 2020 | ealth-Sched | | MD Jacoby [address] | | | | uled | | [address] | | | | | | [place], [place] | | | | | | [address] | | | | | | [phone] | | | | | | | | +--------+ + + + + documented as of this encounter Procedures + +--------+ + + + | Procedure Name | Priori | Date/Time | Associated Diagnosis | Comments | | | ty | | | | + +--------+ + + + | NV NASAL | Routin | 07/06/2019 | Chronic [...]
--- OUTSIDE RECORDS SUMMARY | ~2019-12-30 | XMS | Encounter Summary ---
Demographics + + + | Address | [address] | | | [place] [address] | + + + | Home Phone | | + + + | Preferred Language | Unknown | + + + | Marital Status | Single | + + + | Anabaptism Affiliation | NRP | + + + [...] Team Providers + +------+ + | Care Licensed Occupational Therapist Name | Role | Phone | + +------+ + | Meagan Ayala MD | [place] | | + +------+ + Encounter Details +--------+--------+ + + + | Date | Type | Department | Care Team | Description | +--------+--------+ + + + | 02/07/ | Travel | | | | | [...] 2020 | ealth-Sched | | MD Jacoby [address] | | | | giovany | | [address] | | | | | | [place], [place] | | | | | | [address] | | | | | | [phone] | | | | | | | | +--------+ + + + + documented as of this encounter Visit Diagnoses Not on filedocumented in this encounter"
--- OUTSIDE RECORDS SUMMARY | ~2019-12-30 | XMS | Encounter Summary ---
Demographics + + + | Address | [address] | | | [place] [address] | + + + | Home Phone [...] + + + | Author | [facility] | + + + | Organization | [facility] | + + + | Address | Unknown | + + + | Phone | Unavailable | + + + Support + + +---------+ + | Name | Relationship | Address | Phone | + + +---------+ + | Kiara Jaimes | ECON | Unknown | | + + +---------+ + Care Team Providers + +------+ + | Care Mill Helper Name | Role | Phone | [...] + + | 02/07/ | Hospital | [facility] | Erik Lambert | | | 2019 | Encounter | ST[address] | MD Jacoby [address] | | | | | [place] Mailcode: [facility] | [address] | | | | | [facility] | [place], [place] | | | | | [facility], | [address] | | | | | [place] [address] | [phone] | | | | | [place], [place] | | | | | | [address] | | | | | | [phone] | | | +--------+ + + + [...] your nose to shrink the blood vessels. Pace 3 puffs to the affected nostril(s ) and then gently pinch the nose for 10 minutes. If this does not relieve the bleeding or if the bleeding is more significant, please call the hospital head operator and ask for the ENT doc tor bridge repair crew person. If extensive bleeding occurs, please call 911 or be seen at your closest emerge ncy department. Medications: Pain medication: You will receive a prescription for this. 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 [...] For questions or concerns please call the [facility]'s office Thursday-Thursday from 8 am-5pm at [phone]. For urgent or emergent questions at night and on weekends please aurora surya [phone] and ask to page the ENT resident bridge repair crew person. Additional Instructions Diana Rainey RN - 02/07/2019General [...] hours, weekends and holidays, call the Hospital Temporary Staff Accountant at [phone] and asked to have the doctor who is oncall for your doctor to be paged to your phone number. [facility] for SCOPOLAMINE PATCH Follow the [...] [place] | | | | | | [address] | | | | | | [phone] | | | | | | | [...] 70 - 99 mg/dL | [facility], | | | GLUCOSE, | | [...] [facility] | [address] | [place] [address] | | | OF CARE TESTS | [...] | | | | | | number [id number].A. | | | | | | Sinus, [...] light | | | | | | decalcification.([facility] | | | | | | [...] + + + + | [facility] | [address] | [place] [address] | | | PATHOLOGY | [address] [...] + | [facility] - | [address] | [place] [address] | | | [place] | | | | + + + [...]
--- OUTSIDE RECORDS SUMMARY | ~2019-12-30 | XMS | Encounter Summary ---
Demographics + + + | Address | [address] | | | [place] [address] | + + + | Home Phone [...] Team Providers + +------+ + | Care Mold Repairer Name | Role | Phone | + +------+ + | Meagan Ayala MD | PCP | | + +------+ + Encounter Details +--------+ + + + + | Date | Type | Department | Care Team | Description | +--------+ + + + + | 02/01/ | Anesthesia | Preoperative | Renae Heaton, | | | 2019 | Event | [facility] at | DNP [address] | | | | | [facility] | [place], [place] | | | | | [address] | [address] | | | | | [facility] | [phone] | | | | | and Healing, | | | | | | [address] | | | | | | [place], [place] | | | | | | [address] | | | | | | [phone] | | | +--------+ + + + [...] 5 | | | | | | [place], [place] | | | | | | [address] | | | | | | [phone] | | | | | | | | +--------+ + + + + documented as of this encounter Visit Diagnoses Not on filedocumented in this encounter"
--- OUTSIDE RECORDS SUMMARY | ~2019-12-30 | XMS | Encounter Summary ---
Demographics + + + | Address | [address] | | | [place] [address] | + + + | Home Phone | | + + + | Preferred Language | Unknown | + + + | Marital Status | Single | + + + | Taoism Affiliation | NRP | + + + [...] Team Providers + +------+ + | Care Caddy Packer Name | Role | Phone | + +------+ + | Meagan Ayala MD | [place] | | + +------+ + Encounter Details +--------+--------+ + + + | Date | Type | Department | Care Team | Description | +--------+--------+ + + + | 12/22/ | Travel | | | | | [...] 5 | | | | | | [place] | | | | | | [address] | | | | | | [phone] | | | | | | | | +--------+ + + + + documented as of this encounter Visit Diagnoses Not on filedocumented in this encounter"
--- OUTSIDE RECORDS SUMMARY | ~2019-12-30 | XMS | Encounter Summary ---
Demographics + + + | Address | [address] | | | [place] [address] | + + + | Home Phone [...] Author + + + | Author | [facility] | + + + | Organization | [facility] | + + + | Address | Unknown | + + + | Phone | Unavailable | + + + Support + + +---------+ + | Name | Relationship | Address | Phone | + + +---------+ + | Kiara Jaimes | ECON | Unknown | | + + +---------+ + Care Team Providers + +------+ + | Care Art Department Head Name | Role | Phone | + [...] Description | +--------+---------+ + + + | 02/07/ | Surgery | [facility] INTRA OP | Erik Lambert | BILATERAL MAXILLARY | | 2018 | | [facility] | MD Jacoby [address] | ANTROSTOMY WITH | | | | and Healing Surgery | [address] | TISSUE REMOVAL, | | | | Center Admitting | [place], [place] | BILATERAL TOTAL | | | | Desk Located on the | [address] | ETHMOIDECTOMY, | | | | 4th floor [address] | [phone] | BILATERAL FRONTAL | | | | [address] [place], | | SINUSOTOMY, | | | | [place] [address] | | BILATERAL | | | | | | SPHENOIDOTOMY WITH | | | | | | TISSUE REMOVAL, | | | | | | BILATERAL MIDDLE | | | | | | TURBINATE RESECTION, | | | | | | IMAGE | | | | | | GUIDANCE-FUSION | +--------+---------+ + + + Social History [...] documented in this encounter Discharge Instructions Discharge - Day Procedure Instructions Raven Noland, Muriel London - 02/07/2019 10:22 AM PDTEnd oscopic Sinus [...] your nose to shrink the blood vessels. Hamilton 3 puffs to the affected nostril(s ) and then gently pinch the nose for 10 minutes. If this does not relieve the bleeding or if the bleeding is more significant, please call the hospital alum plant operator and ask for the ENT doc tor pony ride operator. If extensive bleeding occurs, please call 911 or be seen at your closest emerge ncy department. Medications: Pain medication: You will receive a prescription for this. 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 [...] yogurt or acidop hilus tablets (available at [employer] food stores) on a daily basis may [...] For questions or concerns please call the [facility]'s office Thursday-Thursday from 8 am-5pm at [phone]. For urgent or emergent questions at night and on weekends please aurora london [phone] and ask to page the ENT resident pony ride operator. Additional Instructions Diana Rainey RN - 02/07/2019General [...] hours, weekends and holidays, call the Hospital Plant Technical Specialist at [phone] and asked to have the doctor who is oncall for your doctor to be paged to your phone number. [facility] for SCOPOLAMINE PATCH Follow [...] | 11/27/ | Video/TeleH | Otolaryngology | Zoemile Erik | | | 2020 | ealth-Sched | | MD Jacoby [address] | | | | uled | | [address] | | | | | | [place], [place] | | | | | | [address] | | | | | | [phone] | | | | | | | [...] | + +--------+ + + + | RICKEY, PERLA (ALL | Routin | 02/07/2019 | | [...] (H) | 70 - 99 mg/dL | [facility], | | | GLUCOSE, | | [...] + + + + | [facility] | [address] | [place] [address] | | | OF CARE TESTS | [...] | | | | | | number [id number]. | | | | | | Sinus, [...] light | | | | | | decalcification.([facility] | | | | | | [...] + + | Performing | Address | City/State/[facility] | Phone Number | | Organization | | | | + + + + + | [facility] | [address] | [place] [address] | | | PATHOLOGY | [address] [...] detected | [place] - | | | [place] | + + + + + + + + | Performing | Address | City/State/Zipcode | Phone Number | | Organization | | | | + + + + + | [facility] | [address] | [place] [address] | | | [place] | | | | + + + [...] | | | | | doses, Starting Thu02/07/19 at | | | | | | | 0908, Until Thu02/07/19 at 2031, | | | | | [...] iology | | | | | | 2031 | | | | | | + [...] | | | | First dose on 02/07/19 at | | | | | [...] 0908, Until Thu02/07/19 at | | | 2031, nausea/vomiting, 1st line | | + +---+ [...]
--- OUTSIDE RECORDS SUMMARY | ~2019-12-30 | XMS | Encounter Summary ---
Demographics + + + | Address | [address] | | | [place] [address] | + + + | Home Phone | | + + + | Preferred Language | Unknown | + + + | Marital Status | Single | + + + | Roman Catholic Affiliation | NRP | + + + | Race | White | + + + | Ethnic Group | Not or | + + + Author + + + | Author | [facility] | + + + | Organization | [facility] | + + + | Address | Unknown | + + + | Phone | Unavailable | + + + Support + + +---------+ + | Name | Relationship | Address | Phone | + + +---------+ + | Kiara Jaimes | ECON | Unknown | | + + +---------+ + Care Team Providers + +------+ + | Care Line Up Examiner Name | Role | Phone | + [...] | | | | Chronic | Muriel Vargas MD | [address] | | | | | pansinusitis | [address] | [address] | | | | | Procedures | [place] | [place] for | | | | | CT SINUS | Cherelle | [facility] and | | | | | WO CONTRAST | [place], [place] | Healing, | | | | | ROUTINE | [address] | [address], | | | | | | Phone: | 3rd Floor | | | | | | [phone] | [facility] [place] | | | | | | Fax: | [address] | | | | | | [phone] | Phone: | | | | | | | [phone] | | | | | | | Fax: | | | | | | | [phone] | +--------+--------+ + + + + Reason for Visit Diagnostic Testing (Urgent) +--------+--------+ + + + + | Status | Reason | Specialty | Diagnoses / | Referred By | Referred To | | | | | Procedures | Contact | Contact | +--------+--------+ + + + + | Closed | | Radiology | Diagnoses | Banik, | Rad Ct Scan | | | | | Chronic | Muriel Vargas MD | [address] | | | | | pansinusitis | [address] | [address] | | | | | Procedures | [place] | [place] for | | | | | CT SINUS | [place] | [facility] and | | | | | WO CONTRAST | [facility] [place] | Healing, | | | | | ROUTINE | [address] | [address], | | | | | | Phone: | 3rd Floor | | | | | | [phone] | [place], [place] | | | | | | Fax: | [address] | | | | | | [phone] | Phone: | | | | | | | [phone] | | | | | | | Fax: | | | | | | | [phone] | +--------+--------+ + + + + Encounter Details +--------+ + + + + | Date | Type | Department | Care Team | Description | +--------+ + + + + | 02/06/ | Hospital | Diagnostic Imaging | Erik Lambert | | | 2018 | Encounter | Services at [facility] | MD Jacoby [address] | | | | | [address] | [address] | | | | | [place] [facility] | [place], [place] | | | | | [address] | [address] | | | | | [place], [place] | [phone] | | | | | [address] | | | | | | [phone] | | | +--------+ + + + [...] daily. | | | | | | release(/EC) | Administer 30 to [...] 5 | | | | | | [place], [place] | | | | | | [address] | | | | | | [phone] | | | | | | | | +--------+ + + + + documented as of this encounter Procedures + +--------+ + + + | Procedure Name | Priori | Date/Time | Associated Diagnosis | Comments | | | ty | | | | + +--------+ + + + | CT SINUS WO CONTRAST | Urgent | 02/06/2019 | Chronic | Results for this | | ROUTINE | | 2:04 PM | pansinusitis | procedure are in [...] necessary, edited the report. I agree with e report as now presented. | | [...] Diagnosis | + + | Chronic pansinusitis Other chronic sinusitis | + + documented in this encounter"
--- OUTSIDE RECORDS SUMMARY | ~2019-12-30 | XMS | Encounter Summary ---
Demographics + + + | Address | [address] | | | [place] [address] | + + + | Home Phone | | + + + | Preferred Language | Unknown | + + + | Marital Status | Single | + + + | Uatsdin Affiliation | NRP | + + + [...] Team Providers + +------+ + | Care Manager Of Medical Name | Role | Phone | + +------+ + | Meagan Ayala MD | CHINO | | + +------+ + Encounter Details +--------+--------+ + + + | Date | Type | Department | Care Team | Description | +--------+--------+ + + + | 07/05/ | Travel | | | | | 2020 | | | | | +--------+--------+ + [...] 2020 | ealth-Sched | | MD Jacoby [address] | | | | giovany | | [address] | | | | | | [place], [place] | | | | | | [address] | | | | | | [phone] | | | | | | | | +--------+ + + + + documented as of this encounter Visit Diagnoses Not on filedocumented in this encounter"
--- OUTSIDE RECORDS SUMMARY | ~2019-12-30 | XMS | Encounter Summary ---
Demographics + + + | Address | [address] | | | [place] [address] | + + + | Home Phone [...] Team Providers + +------+ + | Care Digital Content Producer Name | Role | Phone | + +------+ + PCP | Unavailable | + +------+ + Encounter Details +--------+ + + + + | Date | Type | Department | Care Team | Description | +--------+ + + + + | 07/06/ | Office | | Note, Outpatient | [...] as of this encounter Progress Notes Interface, Pupil Personnel Services Director In - 11/21/2005 1:10 AM PDTCLINIC DATE: 07/06/2002 [facility] HISTORY: The patient is a 43-year-old woman who underwent a redo laparoscopic Margarette fundoplication on April 05, 2002. She was last seen [facility] on June 15, 2002. At that time, she reported discomfort associated with bloating after eating as well as a sensation of swelling in her throat. She reports a good appetite and an ability to eat "normal" amounts of food without dysphagia. She is not experiencing signs of reflux or heartburn. At the time of her last visit, she was started on a trial dose of erythromycin 250 mg by mouth t.i.d. She reports that this has relieved some of her bloating, and it is quite a bit better than at her last visit. She would like to continue the erythromycin at this time. After discussion of her current symptomatology with Dr. Mitchell, it was agreed that she will continue on this course of erythromycin, a prescription for a 6-month supply has been provided. Phone followup will be arranged for 3 weeks to evaluate Ms. Mckeon's current symptoms and whether she is experiencing continued improvement in bloating as well as this sensation in her throat. Bibi Vargas R.N., A.C.N.PDoni Mitchell M.D. NADIA / MARLENA [id number] / [id number] / [id number] / Tdocumented in this encounter Plan of Treatment +--------+ + + + + | Date | Type | Specialty | Care Team | Description | +--------+ + + + + | 11/27/ | Video/TeleH | Otolaryngology | Geltzeiler, Erik | | | 2020 | ealth-Sched | | MD Jacoby [address] | | | | giovany | | [address] | | | | | | [place] | | | | | | [address] | | | | | | [phone] | | | | | | | | +--------+ + + + + documented as of this encounter Visit Diagnoses Not on filedocumented in this encounter
--- OUTSIDE RECORDS SUMMARY | ~2019-12-30 | XMS | Encounter Summary ---
Demographics + + + | Address | [address] | | | [place] [address] | + + + | Home Phone | | + + + | Preferred Language | Unknown | + + + | Marital Status | Single | + + + | Nondenominational Affiliation | NRP | + + + [...] Team Providers + +------+ + | Care Employee Benefits Administrator Name | Role | Phone | + +------+ + | Meagan Ayala MD | PCP | | + +------+ + Encounter Details +--------+ + + + + | Date | Type | Department | Care Team | Description | +--------+ + + + + | 02/07/ | Pharmacy | Pharmacy @ [facility] | | | | 2019 | Visit | [facility] [address] | | | | | | [address] Mailcode: | | | | | | [facility] | | | | | | and Healing, | | | | | | [address] | | | | | | [place], [place] | | | | | | [address] | | | +--------+ + + + [...] Erik Lambert | | | 2020 | [facility] | | MD Jacoby [address] | | | | giovany | | [address] [facility] 5 | | | | | | [place], [place] | | | | | | [address] | | | | | | [phone] | | | | | | | | +--------+ + + + + documented as of this encounter Visit Diagnoses Not on filedocumented in this encounter"
--- OUTSIDE RECORDS SUMMARY | ~2019-12-30 | XMS | Encounter Summary ---
Demographics + + + | Address | [address] | | | [place] [address] | + + + | Home Phone [...] Providers + +------+ + | Care Manager Disaster Recovery Name | Role | Phone | + [...] 2020 | ealth-Sched | | MD Jacoby [address] | | | | gi[address]any | | [address] | | | | | | [place], [place] | | | | | | [address] | | | | | | [phone] | | | | | | | | +--------+ + + + + documented as of this encounter Visit Diagnoses Not on filedocumented in this encounter"
--- OUTSIDE RECORDS SUMMARY | ~2019-12-30 | XMS | Encounter Summary ---
Demographics + + + | Address | [address] | | | [place] [address] | + + + | Home Phone | | + + + | Preferred Language | Unknown | + + + | Marital Status | Single | + + + | Christianity Affiliation | NRP | + + + [...] Team Providers + +------+ + | Care Senior Reactor Operator Name | Role | Phone | [...] 2020 | ealth-Sched | | MD Jacoby [address] | | | | [address]any | | [address] | | | | | | [place], [place] | | | | | | [address] | | | | | | [phone] | | | | | | | | +--------+ + + + + documented as of this encounter Visit Diagnoses Not on filedocumented in this encounter"
--- OUTSIDE RECORDS SUMMARY | ~2019-12-30 | XMS | Encounter Summary ---
Demographics + + + | Address | [address] | | | [place] [address] | + + + | Home Phone | | + + + | Preferred Language | Unknown | + + + | Marital Status | Single | + + + | Quaker Affiliation | NRP | + + + | Race | White | + + + | Ethnic Group | Not or | + + + Author + + + | Author | [facility] | + + + | Organization | [facility] | + + + | Address | Unknown | + + + | Phone | Unavailable | + + + Support + + +---------+ + | Name | Relationship | Address | Phone | + + +---------+ + | Kiara Jaimes | ECON | Unknown | | + + +---------+ + Care Team Providers + +------+ + | Care Bookseamer Blindstitch Name | Role | Phone | + +------+ + PCP | Unavailable | + +------+ + Encounter Details +--------+ + + + + | Date | Type | Department | Care Team | Description | +--------+ + + + + | 02/10/ | Results | General Surgery | Mika Mitchell, | | | 2002 | Only | [address] | [address] | | | | | Loop Mailcode: | [address] | | | | | [id number] Physician's | [place], [place] | | | | | [address] | [address] | | | | | [place], [place] | [phone] | | | | | [address] | | | | | | [phone] | | | +--------+ + + + [...] 5 | | | | | | [place], [place] | | | | | | [address] | | | | | | [phone] | | | | | | | | +--------+ + + + + documented as of this encounter Procedures + +--------+ + + + | Procedure Name | Priori | Date/Time | Associated Diagnosis | Comments | | | ty | | | | + +--------+ + + + | X-RAY PHARYNGEAL & | Routin | 03/03/2003 | | Results for this | | SPEECH EVAL W VIDEO | e | 2:18 PM | | procedure are in the | | | | PDT | | results section. | + +--------+ + + + | X-RAY UGI W AIR W | Routin | 02/10/2003 | | Results for this | | KUB | e | 9:51 AM | | procedure are in the | | | | PDT | | results section. | + +--------+ + + + documented in this encounter Results PHARYNGL & SPEECH EVAL Sandy CASH (03/03/2003 2:18 PM PDT) + + + + + + | Component | Value | Ref Range | Performed | Pathologist | | | | | At | Signature | + + + + + + | PHARYNGL & | Radiologist 1: | | | | | SPEECH EVAL | OSMIN MELARA, | | | | | Sandy Gomez M.D.VIDEO ESOPHAGRAM: | | | | | | 03/03/2003 Dictated | | | | | | 03/03/2003. CLINICAL | | | | | | INFORMATION: [age] | | | | | | year-old female with | | | | | | feeling of alump in her | | | | | | throat. She has had | | | | | | prior Margarette | | | | | | fundoplication. | | | | | | FINDINGS: Modified | | | | | | swallow was performed | | | | | | with Bibi from | | | | | | speechpathology. No | | | | | | significant motor or | | | | | | morphologic abnormality | | | | | | of the oroor hypopharynx | | | | | | is visible. There is | | | | | | no significant residual | | | | | | and nolaryngeal | | | | | | penetration is seen. | | | | | | IMPRESSION: No | | | | | | significant abnormality. | | | | | | Speech pathology | | | | | | findings will bereported | | | | | | separately. END OF | | | | | | IMPRESSION: | | | | + + + + + + + + | Specimen | + + | | + + + +---------+ + + | Performing | Address | City/State/Zipcode | Phone Number | | Organization | | | | + +---------+ + + | [facility] | | | | | RADIOLOGY | | | | + +---------+ + + DAMION CARDENAS (02/10/2003 9:51 AM PDT) + + + + + + | Component | Value | Ref Range | Performed | Pathologist | | | | | At | Signature | + + + + + + | UGI W AIR W | Radiologist 1: DENNIS, | | | | | KUB | APOLONIA Marcelo JR., | | | | | | M.D.UPPER GI: | | | | | | 02/10/2003 Dictated | | | | | | 02/10/2003 COMPARISON: | | | | | | No previous comparable | | | | | | studies are available | | | | | | at [facility]. | | | | | | CLINICAL HISTORY: | | | | | | Patient is status post | | | | | | redo of fundoplication | | | | | | inapproximately June | | | | | | 2002. Now, per the | | | | | | patient, there | | | | | | isclinical concern of | | | | | | ulcer and bleeding and | | | | | | there is chronic | | | | | | abdominaldiscomfort. | | | | | | TECHNIQUE: The patient | | | | | | swallowed barium mixed | | | | | | with | | | | | | effervescentcrystals | | | | | | without difficulty | | | | | | showing good swallowing | | | | | | mechanism and | | | | | | goodesophageal transit. | | | | | | There is a smooth | | | | | | extrinsic mass over the | | | | | | last3-4 cm of the | | | | | | esophagus/fundus of the | | | | | | stomach, quite | | | | | | consistent withNissen | | | | | | fundoplication. There | | | | | | is no suggestion of | | | | | | detachment of thisfrom | | | | | | diaphragm as it appears | | | | | | to be in good position. | | | | | | The stomachshows | | | | | | normal contours. No | | | | | | suggestion of mass or | | | | | | ulcerations | | | | | | noted.Pyloric channel | | | | | | and duodenal bulb appear | | | | | | normal. Several | | | | | | surgicalclips are noted | | | | | | near the area of the | | | | | | duodenal bulb which | | | | | | could berelated to a | | | | | | previous vagotomy or may | | | | | | also be from | | | | | | cholecystectomy,but they | | | | | | are closer to the | | | | | | duodenal bulb than is | | | | | | usual forcholecystectomy | | | | | | clips. Duodenal sweep | | | | | | shows an approximately | | | | | | 2.0 cm diverticulum in | | | | | | thesecond portion of the | | | | | | duodenum. This has a | | | | | | moderately narrow | | | | | | mouth,but does readily | | | | | | fill and empty with | | | | | | barium. The remainder of | | | | | | theduodenal sweep is | | | | | | normal. The patient | | | | | | also swallowed a | | | | | | constantcolumn of barium | | | | | | while lying prone on | | | | | | the table showing | | | | | | goodesophageal transit, | | | | | | but no suggestion of | | | | | | reflux. Minimal bouts | | | | | | oftertiary contractions | | | | | | of the esophagus are | | | | | | noted, but usually there | | | | | | isan effective | | | | | | stripping wave. No | | | | | | hiatal hernia could be | | | | | | elicited. Nosliding at | | | | | | the diaphragm could be | | | | | | elicited. The Z-line | | | | | | is up slightlyhigher | | | | | | than usual, but this is | | | | | | within the range of | | | | | | normal. IMPRESSION: 1. | | | | | | Status post Margarette | | | | | | fundoplication with no | | | | | | evidence | | | | | | suggestingcomplication. | | | | | | No reflux noted. 2. | | | | | | Roughly 2.0 cm | | | | | | duodenal diverticulum | | | | | | from the second portion | | | | | | ofthe duodenum. 3. No | | | | | | suggestion of mucosal | | | | | | abnormality of the | | | | | | stomach and nosuggestion | | | | | | of ulceration is noted. | | | | | | END OF IMPRESSION: | | | | + + + + + + + + | Specimen | + + | | + + + +---------+ + + | Performing | Address | City/State/Zipcode | Phone Number | | Organization | | | | + +---------+ + + | [facility] | | | | | RADIOLOGY | | | | + +---------+ + + documented in this encounter Visit Diagnoses Not on filedocumented in this encounter"
--- OUTSIDE RECORDS SUMMARY | ~2019-12-30 | XMS | Encounter Summary ---
Demographics + + + | Address | [address] | | | [place] [address] | + + + | Home Phone [...] Team Providers + +------+ + | Care Obstetrical Anesthesiologist Name | Role | Phone | + +------+ + PCP | Unavailable | + +------+ + Encounter Details +--------+ + + + + | Date | Type | Department | Care Team | Description | +--------+ + + + + | 08/04/ | Filler Machine Operator | Pulmonary & | Lavinia Stephen, | Dyspnea, unspecified | | 2019 | | Critical Care | ANP [address] | type (Primary Dx) | | | | Medicine at | [facility] | | | | | Physicians [facility] | [place], [place] | | | | | [address] | [address] | | | | | [address] Phys[address] | [phone] | | | | | Pavilion, 3rd Floor | | | | | | [place], [place] | | | | | | [address] | | | | | | [phone] | | | +--------+ + + + [...] 2020 | ealth-Sched | | MD Jacoby [address] | | | | giovany | | [address] | | | | | | [facility] [place] | | | | | | [address] | | | | | | [phone] | | | | | | | [...] + + + | PULMONARY | Site: [facility] and | | [facility] | | | INTERPRETAT | [facility] | | SPECIAL | | | ION | [facility] | | DIAGNOSTICS | | | | Rd,[place], [place], | | - | | | | [address]ME: [id number] | | PULMONARY | | | | Name: HELEN SHAH | | FUNCTION | | | | MVisit Date: 12/22/2018 | | | | | | Second ID: | | | | | | [id number]: | | | | | | Chele Tillman: 63 | | | | | | : 1955 Sex: | | | | | | Female Race: | | | | | | CaucasianHeight: 163.50 | | | | | | Cms Weight: 85.00 | | | | | | Kgs BSA: 1.91Order | | | | | | IDs: [id number] | | | | | | Test(s): [...] + + + + + + | NFB23-56% | 2.80 | 2.27 L/sec | [facility] | | | PRE | | | SPECIAL | | | | | | DIAGNOSTICS | | | | | | - | | | | | | PULMONARY | | | | | | FUNCTION | | + + + + + + | UMX90-58% | 123 | % | [facility] | | | PRE (%REF) | | | SPECIAL | | | | | | DIAGNOSTICS | | | | | | - | | | | | | PULMONARY | | | | | | FUNCTION | | + + + + + + | NXN38-33% | 3.40 | 2.27 L/sec | [facility] | | | POST | | | SPECIAL | | | | | | DIAGNOSTICS | | | | | | - | | | | | | PULMONARY | | | | | | FUNCTION | | + + + + + + | WUT37-57% | 149 | % | [facility] | [...] [facility] SPECIAL | [address] | [place], [place] | | | DIAGNOSTICS - | [address] | [address] | | | PULMONARY FUNCTION | | | | + + + + + documented in this encounter Visit Diagnoses + + | Diagnosis | + + | Dyspnea, unspecified type - Primary | + + documented in this encounter"
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
--- OUTSIDE RECORDS SUMMARY | ~2019-12-30 | XMS | Encounter Summary ---
Demographics + + + | Address | [address] | | | [place] [address] | + + + | Home Phone [...] Team Providers + +------+ + | Care Systems Navigator Name | Role | Phone | + +------+ + PCP | Unavailable | + +------+ + Encounter Details +--------+ + + + + | Date | Type | Department | Care Team | Description | +--------+ + + + + | 12/31/ | Results | | Other, Faculty | | | 1991 | Only | | [phone] | | +--------+ + + + + [...] 5 | | | | | | [place], [place] | | | | | | [address] | | | | | | [phone] | | | | | | | [...] | | + +---------+ + + | [facility] DEPARTMENT OF | | | | | RADIOLOGY | | | | + +---------+ + + documented in this encounter Visit Diagnoses Not on filedocumented in this encounter"
--- OUTSIDE RECORDS SUMMARY | ~2019-12-30 | XMS | Encounter Summary ---
Demographics + + + | Address | [address] | | | [place] [address] | + + + | Home Phone | | + + + | Preferred Language | Unknown | + + + | Marital Status | Single | + + + | Temple Affiliation | NRP | + + + | Race | White | + + + | Ethnic Group | Not or | + + + Author + + + | Author | [facility] | + + + | Organization | [facility] | + + + | Address | Unknown | + + + | Phone | Unavailable | + + + Support + + +---------+ + | Name | Relationship | Address | Phone | + + +---------+ + | Kiara Jaimes | ECON | Unknown | | + + +---------+ + Care Team Providers + +------+ + | Care District Manager Primary Care Sales Name | Role | Phone | + [...] | | | disorders of | [place] [address] | Physician's | | | | | lung | Phone: | Pavilion, | | | | | Procedures | [phone] | 3rd Floor | | | | | HI NEW | Fax: | [place], [place] | | | | | PATIENT | [phone] | [address] | | | | | LEVEL V HI | | Phone: | | | | | EST PATIENT | | [phone] | | | | | LEVEL V HI | | Fax: | | | | | EVAL OF | | [phone] | | | | | BRONCHOSPASM | [...] | | | | [address] | [facility], | | | | | [place] | [place] [address] | | | | | [facility] floor [place], | | | | | | [place] [address] | | | | | | [phone] | | | +--------+ + + + [...] 2020 | Rojelio | | MD Jacoby [address] | | | | giovany | | [address] | | | | | | [place], [place] | | | | | | [address] | | | | | | [phone] | | | | | | | [...] + + + | PULMONARY | Site: [facility] and | | [facility] | | | INTERPRETAT | [facility], [address] | | SPECIAL | | | [address] | [address] [place] | | DIAGNOSTICS | | | | Rd,[place], [place], | | - | | | | [address]RG: [id number] | | PULMONARY | | | | Name: HELEN SHAH | | FUNCTION | | | | MVisit Date: 12/22/2018 | | | | | | Second ID: | | | | | | [id number]: | | | | | | Kaleb TillmanAge: 63 | | | | | | : 1955 Sex: | | | | | | Female Race: | | | | | | CaucasianHeight: 163.50 | | | | | | Cms Weight: 85.00 | | | | | | Kgs BSA: 1.91Order | | | | | | IDs: [id number] | | | | | | Test(s): [...] + + + + + + | [id number]% | 2.80 | 2.27 L/sec | [facility] | | | PRE | | | SPECIAL | | | | | | DIAGNOSTICS | | | | | | - | | | | | | PULMONARY | | | | | | FUNCTION | | + + + + + + | OAI45-92% | 123 | % | [facility] | | | PRE (%REF) | | | SPECIAL | | | | | | DIAGNOSTICS | | | | | | - | | | | | | PULMONARY | | | | | | FUNCTION | | + + + + + + | [id number]% | 3.40 | 2.27 L/sec | [facility] | | | POST | | | SPECIAL | | | | | | DIAGNOSTICS | | | | | | - | | | | | | PULMONARY | | | | | | FUNCTION | | + + + + + + | [id number]% | 149 | % | [facility] | [...] LORNE CALVILLO | [address] | [place], [place] | | | DIAGNOSTICS - | [place] | [address] | | | PULMONARY FUNCTION | | | | + + + + + documented in this encounter Visit Diagnoses + + | Diagnosis | + + | Dyspnea, unspecified type | + + documented in this encounter"
--- OUTSIDE RECORDS SUMMARY | ~2019-12-30 | XMS | Encounter Summary ---
Demographics + + + | Address | [address] | | | [place] [address] | + + + | Home Phone | | + + + | Preferred Language | Unknown | + + + | Marital Status | Single | + + + | Church Affiliation | NRP | + + + | Race | White | + + + | Ethnic Group | Not or | + + + Author + + + | Author | [facility] | + + + | Organization | [facility] | + + + | Address | Unknown | + + + | Phone | Unavailable | + + + Support + + +---------+ + | Name | Relationship | Address | Phone | + + +---------+ + | Kiara Jaimes | ECON | Unknown | | + + +---------+ + Care Team Providers + +------+ + | Care Telecommunications Manager Name | Role | Phone | + +------+ + | Meagan Ayala MD | PCP | | + +------+ + Encounter Details +--------+ + + + + | Date | Type | Department | Care Team | Description | +--------+ + + + + | 12/22/ | Telephone | Pulmonary & | Alida Bass MD | | | 2019 | | Critical Care | [address] | | | | | Medicine at | [facility], | | | | | Physicians Pavilion | [place] [address] | | | | | [address] | [phone] | | | | | Loop Physician's | | | | | | Pavilion, [facility] Floor | | | | | | [place], [place] | | | | | | [address] | | | | | | [phone] | | | +--------+ + + + [...] | anah-Sched | | MD Jacoby [address] | | | | giovany | | [address] | | | | | | [place], [place] | | | | | | [address] | | | | | | [phone] | | | | | | | | +--------+ + + + + documented as of this encounter Visit Diagnoses Not on filedocumented in this encounter"
--- OUTSIDE RECORDS SUMMARY | ~2019-12-30 | XMS | Encounter Summary ---
Demographics + + + | Address | [address] | | | [place] [address] | + + + | Home Phone | | + + + | Preferred Language | Unknown | + + + | Marital Status | Single | + + + | Moravian Affiliation | NRP | + + + | Race | White | + + + | Ethnic Group | Not or | + + + Author + + + | Author | [facility] | + + + | Organization | [facility] | + + + | Address | Unknown | + + + | Phone | Unavailable | + + + Support + + +---------+ + | Name | Relationship | Address | Phone | + + +---------+ + | Kiara Jaimes | ECON | Unknown | | + + +---------+ + Care Team Providers + +------+ + | Care Casing Blower Name | Role | Phone | + +------+ + | Meagan Ayala MD | PCP | | + +------+ + Reason for Referral Consultation (Routine) +--------+--------+ + + + + | Status | Reason | Specialty | Diagnoses / | Referred By | Referred To | | | | | Procedures | Contact | Contact | +--------+--------+ + + + + | Closed | | Otolaryngolog | Diagnoses | | | | | | y | Chronic | Petra, | | | | | | pansinusitis | Erik Dozier MD | | | | | | Procedures | [address] | | | | | | CONSULT TO | [address] | | | | | | ENT / | [address] | | | | | | OTOLARYNGOLO | [place], [place] | | | | | | [place] | [address] | | | | | | | Phone: | | | | | | | [phone] | | | | | | | Fax: | | | | | | | [phone] | | +--------+--------+ + + + + [...] | | | | | Procedures | [facility] | [place] for | | | | | CONSULT TO | Rd | Health and | | | | | ENT SINUS | [place], [place] | Healing, | | | | | | [address] | Building [address], | | | | | | Phone: | 5th Floor | | | | | | [phone] | [place], [place] | | | | | | Fax: | [address] | | | | | | [phone] | Phone: | | | | | | | [phone] | | | | | | | Fax: | | | | | | | [phone] | +--------+--------+ + + + + Encounter Details +--------+---------+ + + + | Date | Type | Department | Care Team | Description | +--------+---------+ + + + | 04/26/ | Office | [facility] | Erik Lambert | Chronic pansinusitis | | 2019 | Visit | Center at [facility] [address] | NMD [address] | (Primary Dx); Nasal | | | | [address] | [address] | crusting | | | | for Health and | [place], [place] | | | | | Healing, [address], | [address] | | | | | 5th Floor | [phone] | | | | | [place], [place] | | | | | | [address] | | | | | | [phone] | | | +--------+---------+ + + + [...] encounter Progress Notes Erik Lambert MD - 04/26/2019 10:00 AM PSTFormatting of this note might be jessica t from the original. [facility] HPI: Helen Bray is a 63 y.o. female who presents to the [facility] for follow up of Chronic rhinosinusitis. She is s/p revision FESS 02/07/19. Current symptoms include per sistent post-nasal drip and cough. These have persisted since her last surgery. She is under standably quite frustrated. However, she does report that her nasal breathing and facial pre ssure are significantly improved since last visit. She is currently using budesonide rinses 1 mg BID. She completed a course of doxycycline 4 days ago. Current Outpatient Medications Medication Sig acetylcysteine (NAC) [...] Take 1 tablet by mouth once daily. doxycycline hyclate 100 mg oral tablet Take 1 tablet by mouth once daily. (Pharmacist t o substitute salt form as needed) insulin glargine U-300 conc (TOUJEO MAX U-300 [...] 40 mg by mouth once daily. Ad pediatric allergist 30 to 60 minutes before meals Oregano Oil 1,500 mg oral capsule Take 1 tablet by mouth once daily. pioglitazone (ACTOS) 30 mg oral tablet Take 30 mg by mouth once daily. Zinc 50 mg oral tablet Take 50 mg by mouth once daily. PHYSICAL EXAM: Ear, nose, and throat exam reveals a pleasant, well-developed, well-nourishe d patient, in no apparent distress. Voice quality is within normal limits. External auditory canals are normal. There is a t-tube in the left TM. Right TM appears intact with a monomer ic membrane at the site of prior tube. No middle ear fluid. Anterior rhinoscopy reveals muco mike edema. Oral cavity and oropharynx reveals healthy mucosa. The pharyngeal mucosa reveals no lesions. Lips and tongue are within normal limits. Neck reveals no mass, adenopathy, or t hyromegaly. Salivary glands are normal to palpation. PROCEDURE: Nasal Endoscopy with Debridement Anesthesia: 4% topical lidocaine Description of procedure: A rigid endoscope was utilized. Bilateral mucopurulent drainage i n the frontal outflow tract. Exam notable for bilateral polypoid mucosa formation- in the fr ontal recesses and ethmoid cavities. Crusting and mucoid drainage removed bilaterally with s uction and forceps. Polyps were decompressed of edema fluid with suction bilaterally. Able to see into frontal sinus by the end. ASSESSMENT: Chronic rhinosinusitis. She continues to have significant inflammation on exam despite completing a 30 day course of doxycycline and using budesonide rinses BID. Additiona lly, there was mucopurulence in the bilateral frontal recesses on exam today. We discussed t hat we will continue budesonide 1mg BID at this time and start her on azithromycin. We will also have her complete a 12 day prednisone taper. She understands that she should closely mo nitor her blood sugars while on the prednisone. She is changing insurance to [facility] as of Vamshi curtis, so will be following up with ENT there in the future. ERIK LAMBERT MD documented in th is encounter Plan of Treatment +--------+ + + + + | Date | Type | Specialty | Care Team | Description | +--------+ + + + + | 11/27/ | Video/TeleH | Otolaryngology | Erik Lambert | | | 2020 | ealth-Sched | | MD Jacoby [address] | | | | [address] | | [address] | | | | | | [place], [place] | | | | | | [address] | | | | | | [phone] | | | | | | | | +--------+ + + + + documented as of this encounter Procedures + +--------+ + + + | Procedure Name | Priori | Date/Time | Associated Diagnosis | Comments | | | ty | | | | + +--------+ + + + | [place] NASAL | Routin | 04/27/2019 | Chronic | | | SCOPE,BX/RMV | e | 3:41 PM | pansinusitis Nasal | | | POLYP/DEBRID | | PST | crusting | | + +--------+ + + + documented in this encounter Visit Diagnoses + + | Diagnosis | + + | Chronic pansinusitis - Primary Other chronic sinusitis | + + | Nasal crusting Other diseases of nasal cavity and sinuses | + + documented in this encounter"
--- OUTSIDE RECORDS SUMMARY | ~2019-12-30 | XMS | Encounter Summary ---
Demographics + + + | Address | [address] | | | [place] [address] | + + + | Home Phone [...] Team Providers + +------+ + | Care Information Systems Project Manager Name | Role | Phone | + +------+ + PCP | Unavailable | + +------+ + Encounter Details +--------+ + + + + | Date | Type | Department | Care Team | Description | +--------+ + + + + | 04/20/ | Office | | Note, Outpatient | [...] as of this encounter Progress Notes Interface, Pens And Pencils Repairer In - 12/13/2005 3:11 AM PDTCLINIC DATE: 04/20/2002 HISTORY: This is a 46-year-old white female who underwent a laparoscopic Margarette fundoplication in March 2002. She has had relief of her dysphagia symptoms and is eating well and is tolerating a soft diet. She is now 2 weeks out of surgery. PHYSICAL EXAMINATION: Her incisions are well healed, and her abdomen is soft. PLAN: The patient is to return to work on May 23, 2002. 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 We have given her 6 weeks' off due to the fact that she cannot do any heavy labor. She will return to our clinic akiko Davison M.D. EBENEZER / [id number] / [id number] / [id number] / [id number] Tdocumented in this encounter Plan of Treatment +--------+ + + + + | Date | Type | Specialty | Care Team | Description | +--------+ + + + + | 11/27/ | Video/TeleH | Otolaryngology | Erik Lambert | | | 2020 | [facility] | | MD Jacoby [address] | | | | [address]aman | | [facility] [address] | | | | | | [place], [place] | | | | | | [address] | | | | | | [phone] | | | | | | | | +--------+ + + + + documented as of this encounter Visit Diagnoses Not on filedocumented in this encounter"
--- OUTSIDE RECORDS SUMMARY | ~2019-12-30 | XMS | Encounter Summary ---
Demographics + + + | Address | [address] | | | [place] [address] | + + + | Home Phone | | + + + | Preferred Language | Unknown | + + + | Marital Status | Single | + + + | Cheondoism Affiliation | NRP | + + + [...] Team Providers + +------+ + | Care Children'S Minister Name | Role | Phone | + +------+ + | Meagan Ayala MD | PCP | | + +------+ + Encounter Details +--------+ + + + + | Date | Type | Department | Care Team | Description | +--------+ + + + + | 12/01/ | Pharmacy | Pharmacy @ [facility] | | | | 2020 | Visit | [facility] [address] | | | | | | [address] Mailcode: | | | | | | [facility] | | | | | | and Healing, | | | | | | [address] | | | | | | [place], [place] | | | | | | [address] | | | +--------+ + + + [...] recent travel history available. | + + + + + + | COVID-19 Exposure | Response | Date Recorded | + + + + | In the last month, have you been in contact | No / Unsure | 11/25/2019 8:31 AM | | with someone who was confirmed or | | PDT | | suspected to have Coronavirus / COVID-19? | | | + + + + documented as of [...] [address] | | | | | | [place] | | | | | | [address] | | | | | | [phone] | | | | | | | | +--------+ + + + + documented as of this encounter Visit Diagnoses Not on filedocumented in this encounter"
--- OUTSIDE RECORDS SUMMARY | ~2019-12-30 | XMS | Encounter Summary ---
Demographics + + + | Address | [address] | | | [place] [address] | + + + | Home Phone [...] Team Providers + +------+ + | Care Renal Social Worker Name | Role | Phone | + +------+ + | Meagan Ayala MD | [place] | | + +------+ + Encounter Details +--------+--------+ + + + | Date | Type | Department | Care Team | Description | +--------+--------+ + + + | 11/24/ | Travel [...] 2020 | Rojelio | | MD Jacoby [address] | | | | giovany | | [address] | | | | | | [place], [place] | | | | | | [address] | | | | | | [phone] | | | | | | | | +--------+ + + + + documented as of this encounter Visit Diagnoses Not on filedocumented in this encounter"
--- OUTSIDE RECORDS SUMMARY | ~2019-12-30 | XMS | Encounter Summary ---
Demographics + + + | Address | [address] | | | [place] [address] | + + + | Home Phone [...] Providers + +------+ + | Care Manager Float Name | Role | Phone | + [...] (Primary Dx); Preop | | | | [facility] | [place], [place] | examination; | | | | [address] | [address] | Hypertension, | | | | [place] [facility] | [phone] | unspecified type; | | | | and Healing, | | Obesity, unspecified | | | | Building 2 | | classification, | | | | [place], [place] | | unspecified obesity | | | | [address] | | type, unspecified | | | | [phone] | | whether serious | | | [...] whether | | | | | | terminal make up operator insulin | | | | | | use ([facility]) | +--------+---------+ + + + Anesthesia Record [...] sit, stand or walk. Surgery check-in location: [address] and [facility] 2, 1st Floor Lobby Surgery [...] ch as Uber/Lyft), or public transportation. An Uber/Lyft/ems driver does not count as the responsible [...] it is after office hours, call the [facility] rough and trueing machine operator at [phone] and ask them to page him or [...] IMAGE GUIDANCE-FUSION on 02/07/19 Proposed Procedure Location: [facility] HISTORY OF PRESENT ILLNESS: Helen Bray [...] 40 mg by mouth once daily. Ad delphi developer 30 to 60 minutes before meals Oregano [...] Sting [Hymenoptera Allergenic Extract] Anaphylaxis and Hives [place] [Hydrocodone-Acetaminophen] Hives Past medical history reviewed / [...] nena nt is also currently scheduled at [facility] [place] and is meeting inclusion criteria [...] to this patient's care. Renae Heaton DNP [facility] PREADMIT CLINIC [facility] PBB PREOPERATIVE MEDICINE CLINIC AT [facility] [address] [place] [address] I spent time counseling the [...] Erik Lambert | | | 2020 | [facility] | | MD Jacoby [address] | | | | ulaman | | [address] [address] | | | | | | [place], [place] | | | | | | [address] | | | | | | [phone] | | | | | | | | +--------+ + + + + documented as of this encounter Procedures + +--------+ + + + | Procedure Name | Priori | Date/Time | Associated Diagnosis | Comments | | | ty | | | | + +--------+ + + + | MT COLLECTION VENOUS | Routin | 02/01/2019 | [...] | + + + + + | [facility] | [address] | [place] [address] | | | SERVICES, CORE | NU [...] (H)Comment: Hgb A1C | <5.7 % | [facility] | | | A1C | Interpretive | [...] | [facility] | | considered for monitoring terminal make up operator glycemic control in patients with: | LABORATORY [...] | + + + + + | [facility] | [address] [facility] [address] | [place] [address] | | | SERVICES, SPECIAL | NU [...]
--- OUTSIDE RECORDS SUMMARY | ~2019-12-30 | XMS | Encounter Summary ---
Demographics + + + | Address | [address] | | | [place] [address] | + + + | Home Phone | | + + + | Preferred Language | Unknown | + + + | Marital Status | Single | + + + | Muslim Affiliation | NRP | + + + | Race | White | + + + | Ethnic Group | Not or | + + + Author + + + | Author | [facility] | + + + | Organization | [facility] | + + + | Address | Unknown | + + + | Phone | Unavailable | + + + Support + + +---------+ + | Name | Relationship | Address | Phone | + + +---------+ + | Kiara Jaimes | ECON | Unknown | | + + +---------+ + Care Team Providers + +------+ + | Care Wound/Ostomy Clinical Nurse Specialist Name | Role | Phone | + +------+ + | Meagan Ayala MD | PCP | | + +------+ + Encounter Details +--------+ + + + + | Date | Type | Department | Care Team | Description | +--------+ + + + + | 02/01/ | Anesthesia | Preoperative | Renae Heaton, | | | 2019 | Event | [facility] at | DNP [address] | | | | | [facility] | [place], [place] | | | | | [address] | [address] | | | | | [facility] | [phone] | | | | | and Healing, | | | | | | Building 2 | | | | | | [place], [place] | | | | | | [address] | | | | | | [phone] | | | +--------+ + + + [...] 5 | | | | | | [place], [place] | | | | | | [address] | | | | | | [phone] | | | | | | | | +--------+ + + + + documented as of this encounter Visit Diagnoses Not on filedocumented in this encounter"
--- OUTSIDE RECORDS SUMMARY | ~2019-12-30 | XMS | Encounter Summary ---
Demographics + + + | Address | [address] | | | [place] [address] | + + + | Home Phone [...] Author + + + | Author | [facility] | + + + | Organization | [facility] | + + + | Address | Unknown | + + + | Phone | Unavailable | + + + Support + + +---------+ + | Name | Relationship | Address | Phone | + + +---------+ + | Kiara Jaimes | ECON | Unknown | | + + +---------+ + Care Team Providers + +------+ + | Care Project Associate Name | Role | Phone | + +------+ + | Meagan Ayala MD | PCP | | + +------+ + Encounter Details +--------+ + + + + | Date | Type | Department | Care Team | Description | +--------+ + + + + | 12/06/ | Pharmacy | Pharmacy @ [facility] | | | | 2020 | Visit | [facility] [address] | | | | | | [address] Mailcode: | | | | | | [facility] | | | | | | and Healing, | | | | | | Building 2 | | | | | | [place], [place] | | | | | | [address] | | | +--------+ + + + [...] 11/27/ | Video/TeleH | Otolaryngology | Erik Lambetr | | | 2020 | anah-Sched | | MD Jacoby [address] | | | | giovany | | [address] | | | | | | [place] | | | | | | [address] | | | | | | [phone] | | | | | | | | +--------+ + + + + documented as of this encounter Visit Diagnoses Not on filedocumented in this encounter"
--- OUTSIDE RECORDS SUMMARY | ~2019-12-30 | XMS | Encounter Summary ---
Demographics + + + | Address | [address] | | | [place] [address] | + + + | Home Phone | | + + + | Preferred Language | Unknown | + + + | Marital Status | Single | + + + | Sabianism Affiliation | NRP | + + + [...] Team Providers + +------+ + | Care Wheel Worker Name | Role | Phone | [...] W | | | | ON | [facility] 4th Floor [address] | [address] | | | | | [address] | Road [place], [place] | | | | | Mailcode: [facility] | [address] | | | | | [facility] | | | | | | and Healing, | | | | | | Building 1,4th Floor | | | | | | [place], [place] | | | | | | [address] | | | | | | [phone] | | | +--------+ + + + [...] 2020 | marcus-Sched | | MD Jacoby [address] | | | | giovany | | [address] | | | | | | [place], [place] | | | | | | [address] | | | | | | [phone] | | | | | | | [...]
--- OUTSIDE RECORDS SUMMARY | ~2019-12-30 | XMS | Encounter Summary ---
Demographics + + + | Address | [address] | | | [place] [address] | + + + | Home Phone | | + + + | Preferred Language | Unknown | + + + | Marital Status | Single | + + + | Anglican Affiliation | NRP | + + + | Race | White | + + + | Ethnic Group | Not or | + + + Author + + + | Author | [facility] | + + + | Organization | [facility] | + + + | Address | Unknown | + + + | Phone | Unavailable | + + + Support + + +---------+ + | Name | Relationship | Address | Phone | + + +---------+ + | Kiara Jaimes | ECON | Unknown | | + + +---------+ + Care Team Providers + +------+ + | Care Sheet Metal Layout Mechanic Name | Role | Phone | + +------+ + | Meagan Ayala MD | PCP | | + +------+ + Encounter Details +--------+ + + + + | Date | Type | Department | Care Team | Description | +--------+ + + + + | 01/20/ | Telephone | [facility] | Erik Lambert | | | 2019 | | Center at [facility] [address] | MD Jacoby [address] | | | | | [address] [facility] | [address] | | | | | for Health and | [facility] [place] | | | | | [facility], Building 1, | [address] | | | | | 5th Floor | [phone] | | | | | [place], [place] | | | | | | [address] | | | | | | [phone] | | | +--------+ + + + [...] 5 | | | | | | [facility] [place], [place] | | | | | | [address] | | | | | | [phone] | | | | | | | | +--------+ + + + + documented as of this encounter Visit Diagnoses Not on filedocumented in this encounter"
--- OUTSIDE RECORDS SUMMARY | ~2019-12-30 | XMS | Encounter Summary ---
Demographics + + + | Address | [address] | | | [place] [address] | + + + | Home Phone | | + + + | Preferred Language | Unknown | + + + | Marital Status | Single | + + + | Yarsani Affiliation | NRP | + + + [...] Team Providers + +------+ + | Care Roof Foreman Name | Role | Phone | + [...] as of this encounter Progress Notes Interface, Care Process Manager In - 11/21/2005 1:10 AM PDTCLINIC DATE: [...] R.N., A.C.N.PDoni Mitchell M.D. NADIA / MARLENA [id number] / [id number] / [id number] / Tdocumented in this encounter Plan of [...] [place] | | | | | | [address] | | | | | | [phone] | | | | | | | | +--------+ + + + + documented as of this encounter Visit Diagnoses Not on filedocumented in this encounter
--- OUTSIDE RECORDS SUMMARY | ~2019-12-30 | XMS | Encounter Summary ---
Demographics + + + | Address | [address] | | | [place] [address] | + + + | Home Phone [...] Team Providers + +------+ + | Care Chronometer Tester Name | Role | Phone | + [...] as of this encounter Discharge Summaries Interface, Senior Software Development Manager In - 12/13/2005 3:11 AM PDT [facility] [address] [address] [facility] MEDICAL SUMMARY OF HOSPITALIZATION Med Rec [...] up in general surgery clinic with Mika Mitchell M.D. in two weeks. Kylah Kinney M.D. Mika Mitchell M.D. RM:[id number] C: 05/07/2002 [facility] cc: JOYCE LEON MD [address] [place] [address] [id number] signed by Interface, Senior Software Development Manager In at 12/13/2005 3:11 AM [facility] in this encounter Plan of Treatment +--------+ + + + + | Date | Type | Specialty | Care Team | Description | +--------+ + + + + | 11/27/ | Video/TeleH | Otolaryngology | Erik Lambert | | | 2020 | ealth-Sched | | MD Jacoby [address] | | | | uled | | [address] | | | | | | [place], [place] | | | | | | [address] | | | | | | [phone] | | | | | | | | +--------+ + + + + documented as of this encounter Visit Diagnoses Not on filedocumented in this encounter"
--- OUTSIDE RECORDS SUMMARY | ~2019-12-30 | XMS | Encounter Summary ---
Demographics + + + | Address | [address] | | | [place] [address] | + + + | Home Phone [...] Team Providers + +------+ + | Care Cream Dipper Name | Role | Phone | + +------+ + PCP | Unavailable | + +------+ + Encounter Details +--------+ + + + + | Date | Type | Department | Care Team | Description | +--------+ + + + + | 02/01/ | Office | | Note, Outpatient | [...] as of this encounter Progress Notes Interface, Special Education Professor In - 10/31/2005 1:10 AM PDTCLINIC DATE: 02/01/2003 [facility] SUBJECTIVE: Helen returns to clinic today for a followup visit. This 47-year-old underwent a laparoscopic Casey fundoplication in June 2001 and unfortunately developed recurrent symptoms of reflux. She underwent a revision of her fundoplication which was found to be herniated in March 2002. She now complains of excessive bloating over the course of the day with the feeling of fullness or swelling in her neck. She also complains of intermittent abdominal discomfort and pain. Her bowel habits have been normal. She very occasionally gets nauseated and does not burp a lot. The patient is a diabetic about 15 years and recently started some new hyperglycemic medications, but otherwise, there are no new medicines in use. She did begin to use erythromycin in the past but discontinued to use it after its effectiveness subsided a few months ago. PHYSICAL EXAMINATION GENERAL: She is well appearing, in no apparent distress. ABDOMEN: Soft, nontender with no evidence of hernia. Incisions are well healed. There is a small scar nodule beneath her subxiphoid incision. The patient declined rectal examination. EXTREMITIES: Full range of motion. ASSESSMENT AND PLAN: We discussed all of her symptoms with her and her , and I think it is probably a good idea to get an upper GI study at this stage to define the anatomy. If there are any large ulcers, they should also be visible. She also informed us that her primary physician had said she was anemic. I think it will probably be a good idea to continue with an endoscopic study once her anatomy is confirmed with the barium swallow. She will return to see us once this is completed. Michelet Taylor M.D. Mika Mitchell M.D. AMOS / MARLENA [id number] / [id number] / [id number] / [id number] C:02/23/2003 JAS documented in this encounter Plan of Treatment [...] 5 | | | | | | [place], [place] | | | | | | [address] | | | | | | [phone] | | | | | | | | +--------+ + + + + documented as of this encounter Visit Diagnoses Not on filedocumented in this encounter"
--- OUTSIDE RECORDS SUMMARY | ~2019-12-30 | XMS | Encounter Summary ---
Demographics + + + | Address | [address] | | | [place] [address] | + + + | Home Phone [...] Team Providers + +------+ + | Care Silk Screener Name | Role | Phone | + [...] as of this encounter Progress Notes Interface, Campus Safety Officer In - 12/13/2005 3:11 AM PDTCLINIC DATE: [...] on May 23, 2002. 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 We have given her 6 weeks' off due to the fact that she cannot do any heavy labor. She will return to our clinic akiko Davison M.D. EBENEZER / [id number] / [id number] / [id number] / [id number] Tdocumented in this encounter Plan of Treatment +--------+ + + + + | Date | Type | Specialty | Care Team | Description | +--------+ + + + + | 11/27/ | Video/TeleH | Otolaryngology | Erik Lambert | | | 2020 | [facility] | | MD Jacoby [address] | | | | ulaman | | [facility] [address] | | | | | | [place], [place] | | | | | | [address] | | | | | | [phone] | | | | | | | | +--------+ + + + + documented as of this encounter Visit Diagnoses Not on filedocumented in this encounter"
--- OUTSIDE RECORDS SUMMARY | ~2019-12-30 | XMS | Encounter Summary ---
Demographics + + + | Address | [address] | | | [place] [address] | + + + | Home Phone [...] + + + | Author | [facility] | + + + | Organization | [facility] | + + + | Address | Unknown | + + + | Phone | Unavailable | + + + Support + + +---------+ + | Name | Relationship | Address | Phone | + + +---------+ + | Kiara Jaimes | ECON | Unknown | | + + +---------+ + Care Team Providers + +------+ + | Care Regulatory Submissions Associate Name | Role | Phone | + +------+ + | Meagan Ayala MD | PCP | | + +------+ + Encounter Details +--------+ + + + + | Date | Type | Department | Care Team | Description | +--------+ + + + + | 02/07/ | Procedure | [facility] | | | | 2019 | Pass | [place] [facility] | | | | | | and Healing Surgery | | | | | | Center Admitting | | | | | | Desk Located on the | | | | | | 4th floor [address] | | | | | | [address] [place], | | | | | | [place] [address] | | | +--------+ + + + [...] Erik Lambert | | | 2020 | [facility] | | MD Jacoby [address] | | | | giovany | | [address] | | | | | | [place], [place] | | | | | | [address] | | | | | | [phone] | | | | | | | | +--------+ + + + + documented as of this encounter Visit Diagnoses Not on filedocumented in this encounter"
--- OUTSIDE RECORDS SUMMARY | ~2019-12-30 | XMS | Clinical Summary ---
Demographics + + + | Address | [address] | | | [place] [address] | + + + | Home Phone | | + + + | Preferred Language | Unknown | + + + | Marital Status | Single | + + + | Jainism Affiliation | NRP | + + + [...] Providers + +------+ + | Care District Agent Name | Role | Phone | + +------+ + | Meagan Ayala MD | PCP | | + +------+ + Source Comments L[facility] is fully live on both [facility] Allergies + + + + + + [...] + + + + | 10/24/ | Property Underwriter | Otolaryngology | Clair [place] | | [...] 5 | | | | | | [place], [place] | | | | | | [address] | | | | | | [phone] | | | | | | | [...] ral: | ENT | | 2018 | /[id number] | | Erik Lambert MD at | [...] | + +--------+ + + + | AL NASAL | Routin | 11/25/2019 | Chronic [...] | PHP | xxxxxxxxxxx | 05/18/19 | [phone] | [address] | [address] | | | [address] | | [address] | [address] | | | [address] | | sent | | [place], | | | | [place] | | | | [place] [address] | | + +--------+ +--------+ + +------+ [...] | | al/Fam | | 1955 | [phone] | [place] [address] | | | quinten | | | [...]
--- OUTSIDE RECORDS SUMMARY | ~2019-12-30 | XMS | Encounter Summary ---
Demographics + + + | Address | [address] | | | [place] [address] | + + + | Home Phone | | + + + | Preferred Language | Unknown | + + + | Marital Status | Single | + + + | Episcopal Affiliation | NRP | + + + [...] Team Providers + +------+ + | Care Power Plant Superintendent Name | Role | Phone | + +------+ + | Meagan Ayala MD | PCP | | + +------+ + Encounter Details +--------+ + + + + | Date | Type | Department | Care Team | Description | +--------+ + + + + | 11/20/ | Pharmacy | [facility] | | | | 2020 | Visit | [address] [facility] | | | | | | [facility] [address] | | | | | | [place] [address] | | | | | | [phone] | | | +--------+ + + + [...] 5 | | | | | | [place], [place] | | | | | | [address] | | | | | | [phone] | | | | | | | | +--------+ + + + + documented as of this encounter Visit Diagnoses Not on filedocumented in this encounter"
--- OUTSIDE RECORDS SUMMARY | ~2019-12-30 | XMS | Encounter Summary ---
Demographics + + + | Address | [address] | | | [place] [address] | + + + | Home Phone | | + + + | Preferred Language | Unknown | + + + | Marital Status | Single | + + + | Jew Affiliation | NRP | + + + | Race | White | + + + | Ethnic Group | Not or | + + + Author + + + | Author | [facility] | + + + | Organization | [facility] | + + + | Address | Unknown | + + + | Phone | Unavailable | + + + Support + + +---------+ + | Name | Relationship | Address | Phone | + + +---------+ + | Kiara Jaimes | ECON | Unknown | | + + +---------+ + Care Team Providers + +------+ + | Care Topographical Engineer Name | Role | Phone | [...] | | | | | [place], | | | | | | [place] [address] | | | +--------+ + + + [...] 2020 | Rojelio | | MD Jacoby [address] | | | | giovany | | [address] | | | | | | [place], [place] | | | | | | [address] | | | | | | [phone] | | | | | | | [...] | + + | 04/06/2002 11:04 AM [facility] Anesthesia PostOp Report | | | | Patient: HELEN LOBATO Med Rec: [id number] Sex F Bdate: 1955 | | Date/Time Data | | Entered Into [facility] | | Anesth PostOp | | Surgery Date [id number] 04/06/02 11:04 | | Anesthesiologist GAY CALDWELL 04/06/02 11:04 | | Resident Anesthesiolog GEO SALVADOR 04/06/02 11:04 | | | + + documented in this encounter Visit Diagnoses Not on filedocumented in this encounter"
--- OUTSIDE RECORDS SUMMARY | ~2019-12-30 | XMS | Encounter Summary ---
Demographics + + + | Address | [address] | | | [place] [address] | + + + | Home Phone | | + + + | Preferred Language | Unknown | + + + | Marital Status | Single | + + + | Zoroastrian Affiliation | NRP | + + + | Race | White | + + + | Ethnic Group | Not or | + + + Author + + + | Author | [facility] | + + + | Organization | [facility] | + + + | Address | Unknown | + + + | Phone | Unavailable | + + + Support + + +---------+ + | Name | Relationship | Address | Phone | + + +---------+ + | Kiara Jaimes | ECON | Unknown | | + + +---------+ + Care Team Providers + +------+ + | Care Internal Sales Name | Role | Phone | + +------+ + | Meagan Ayala MD | PCP | | + +------+ + Encounter Details +--------+ + + + + | Date | Type | Department | Care Team | Description | +--------+ + + + + | 12/01/ | MyChart | [facility] | Erik Lambert | RE: My prescription | | 2020 | Encounter | Center at [facility] [address] | MD Jacoby [address] | | | | | [address] Center | [address] | | | | | for Health and | [place], [place] | | | | | Healing, Building 1, | [address] | | | | | 5th Floor | [phone] | | | | | [place], [place] | | | | | | [address] | | | | | | [phone] | | | +--------+ + + + [...] 5 | | | | | | [place] | | | | | | [address] | | | | | | [phone] | | | | | | | | +--------+ + + + + documented as of this encounter Visit Diagnoses Not on filedocumented in this encounter"
--- OUTSIDE RECORDS SUMMARY | ~2019-12-30 | XMS | Encounter Summary ---
Demographics + + + | Address | [address] | | | [place] [address] | + + + | Home Phone | | + + + | Preferred Language | Unknown | + + + | Marital Status | Single | + + + | Islam Affiliation | NRP | + + + [...] Team Providers + +------+ + | Care Delivery Driver/Supervisor Name | Role | Phone | + [...] | | | | | Procedures | [address] | | | | | | CONSULT TO | [address] | | | | | | ENT / | [address] | | | | | | OTOLARYNGOLO | [place], [place] | | | | | | [place] | [address] | | | | | | | Phone: | | | | | | | [phone] | | | | | | | Fax: | | | | | | | [phone] | | +--------+--------+ + + + + [...] | | | | | Procedures | [facility] | [place] for | | | | | CONSULT TO | Rd | Health and | | | | | ENT SINUS | [place], [place] | Healing, | | | | | | [address] | [address], | | | | | | Phone: | 5th Floor | | | | | | [phone] | [place], [place] | | | | | | Fax: | [address] | | | | | | [phone] | Phone: | | | | | | | [phone] | | | | | | | Fax: | | | | | | | [phone] | +--------+--------+ + + + + Encounter Details +--------+---------+ + + + | Date | Type | Department | Care Team | Description | +--------+---------+ + + + | 04/26/ | Office | [facility] | Erik Lambert | Chronic pansinusitis | | 2019 | Visit | Center at [facility] [address] | NMD [address] | (Primary Dx); Nasal | | | | [address] Center | [address] | crusting | | | | for Health and | [place], [place] | | | | | Healing, [address], | [address] | | | | | 5th Floor | [phone] | | | | | [place], [place] | | | | | | [address] | | | | | | [phone] | | | +--------+---------+ + + + [...] might be jessica t from the original. [facility] HPI: Helen Bray is a 63 y.o. female who presents to the [facility] for follow up of Chronic [...] 40 mg by mouth once daily. 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 She is changing insurance to [employer] as of Vamshi curtis, so will be [...] 2020 | ealth-Sched | | MD Jacoby [address] | | | | [address]aman | | [address] | | | | | | [place], [place] | | | | | | [address] | | | | | | [phone] | | | | | | | | +--------+ + + + + documented as of this encounter Procedures + +--------+ + + + | Procedure Name | Priori | Date/Time | Associated Diagnosis | Comments | | | ty | | | | + +--------+ + + + | [place] NASAL | Routin | 04/27/2019 | Chronic [...]
--- OUTSIDE RECORDS SUMMARY | ~2019-12-30 | XMS | Encounter Summary ---
Demographics + + + | Address | [address] | | | [place] [address] | + + + | Home Phone | | + + + | Preferred Language | Unknown | + + + | Marital Status | Single | + + + | Mormonism Affiliation | NRP | + + + [...] Team Providers + +------+ + | Care Language Pathologist Name | Role | Phone | + [...] 2020 | marcus-Pool | | MD Jacoby [address] | | | | giovany | | [address] | | | | | | [place], [place] | | | | | | [address] | | | | | | [phone] | | | | | | | [...] | Transcriptions | + + | Interface, Supervisor Respiratory In - 12/18/2005 1:05 AM PDT | | [address] | | [place], [place] [address] | | [facility] RECORDMed Rec No.: | | [id number] Date: 04/05/2002Name: Helen Mckeon SURGEON:Mika | | Priscila CleaningCHOPPER OPERATOR SURGEON: Fabiola Key M.D.PREOPERATIVE | | DIAGNOSIS:Dysphagia.POSTOPERATIVE DIAGNOSIS:Herniated Margarette fundoplication.OPERATION | | PERFORMED:Laparoscopic redo Margarette fundoplication.SPECIMENS REMOVED:Not | | dictatedINDICATIONS:This is a 43-year-old white female, who underwent laparoscopic | | [place]op[place] in [place] over one year ago. The patient had [...] | | completed, we introduced a 42 Spanish bougie downthe esophagus which was then | | followed by a 56 Spanish bougie. The cruralrepair appeared to be of appropriate | | tightness.After this was completed, we removed the bougie under direct vision. Thiswas | | followed by the liver retractor and the trocars. The UZ2ctbokrxglygrbfec | | was evacuated from the abdomen, and the skin was closedusing 4-0 interrupted | | subcuticular sutures. Sterile dressings wereapplied. The patient was brought to | | the recovery room in stable condition.Priscila Dey | | Montse Cleaning.AB:X71D: 04/05/2002T: 04/07/[id number] | |was herniated above the diaphragm. The [...] this was completed, we introduced a 42 Spanish bougie down | |the esophagus which was then followed by a 56 Spanish bougie. The crural | |repair appeared to [...] | | | | | | | |[phone] | + + documented in this encounter Visit Diagnoses Not on filedocumented in this encounter"
--- OUTSIDE RECORDS SUMMARY | ~2019-12-30 | XMS | Encounter Summary ---
Demographics + + + | Address | [address] | | | [place] [address] | + + + | Home Phone | | + + + | Preferred Language | Unknown | + + + | Marital Status | Single | + + + | Congregational Affiliation | NRP | + + + [...] Team Providers + +------+ + | Care Pediatric Social Worker Name | Role | Phone [...] 2020 | ealth-Sched | | MD Jacoby [address] | | | | giovany | | [address] | | | | | | [place], [place] | | | | | | [address] | | | | | | [phone] | | | | | | | | +--------+ + + + + documented as of this encounter Visit Diagnoses Not on filedocumented in this encounter"
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
--- OUTSIDE RECORDS SUMMARY | ~2019-12-30 | XMS | Encounter Summary ---
Demographics + + + | Address | [address] | | | [place] [address] | + + + | Home Phone [...] Team Providers + +------+ + | Care Fisher Gill Net Name | Role | Phone | + +------+ + PCP | Unavailable | + +------+ + Encounter Details +--------+ + + + + | Date | Type | Department | Care Team | Description | +--------+ + + + + | 03/02/ | Office | | Note, Outpatient | [...] as of this encounter Progress Notes Interface, Salt Lifter In - 12/22/2005 3:02 AM PDTCLINIC DATE: 03/02/2002 CHIEF COMPLAINT: Chest pain and dysphagia. 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 The patient did well postoperatively until January 2002 when she was at a chiropractor undergoing an adjustment and began to have sharp upper epigastric pain which lasted 3 hours. After this pain began, the patient presented to her physician who performed an upper GI series and the fundoplication appeared intact, although herniated up into the chest. It is unclear if this was an acute event or had occurred prior to the chiropractor visit. The patient's previous symptoms consisted of regurgitation, heartburn, and mild dysphagia. Currently, the patient has no heartburn or regurgitation and is on no medications; however, she does have chest tightness after meals and mild dysphagia as well. PREVIOUS MEDICAL HISTORY : Significant for diabetes mellitus and fibromyalgia. PREVIOUS SURGICAL HISTORY: Appendectomy, open cholecystectomy in 1989, tubal ligation in 1977, total abdominal hysterectomy and bilateral salpingo-oophorectomy in 1998, and laparoscopic fundoplication in May 2001. MEDICATIONS: She is currently on Glucotrol 10 mg p.o. b.i.d., Glucophage 500 mg 2 to 3 times a day up to 2500 mg, Estratest H.S. q.d., Zestril 20 mg p.o. q.d., trazodone 1 time per day, and low-dose aspirin once a day. ALLERGIES: She has no known drug allergies. PRIOR STUDIES: A motility study performed at the [facility] by Dr. Masood Yanez which showed the lower esophageal sphincter to be at 39 cm. The lower esophageal sphincter pressure was 3 to 4 mm, and she had normal peristalsis. She had no pH study and had an upper GI study that showed a shallow Schatzki's ring. PHYSICAL EXAMINATION GENERAL: Physical examination is within normal limits. Slightly overweight pleasant female. VITAL SIGNS: She weighs 170 pounds. LUNGS: Clear to auscultation. HEART: No murmurs, rubs, or gallops. ABDOMEN: Soft, nontender, and nondistended with multiple well-healed surgical scars. EXTREMITIES: She has no extremity edema. She does have multiple tattoos on both upper extremities and has multiple body piercing. IMPRESSION AND PLAN: Herniated Margarette fundoplication in chest as per upper gastrointestinal study. Currently, the upper gastrointestinal study is unavailable to us and this needs to be obtained prior to reoperation. We have scheduled her for surgery on April 05, 2002, for redo laparoscopic Margarette fundoplication and possible Livan gastroplasty. The risks and benefits of the procedure were explained to the patient in detail including the possibility of having to perform a Livan gastroplasty. We discussed the fact that there is a higher incidence of leak and of conversion with this type of procedure. I quoted her with a failure rate of 6% to 10% over the continuous churn buttermaker, and we discussed the risk of bleeding and injury to other organs as there will be multiple adhesions. She chooses to proceed. She is going to obtain the upper gastrointestinal study for us in the next week, and she is given an appointment for preadmission testing for EKG and chest x-ray as well as laboratory tests. Fabiola Davison M.D. EBENEZER / MARLENA [id number] / [id number] / [id number] / Tdocumented in this encounter Plan of Treatment +--------+ + + + + | Date | Type | Specialty | Care Team | Description | +--------+ + + + + | 11/27/ | Video/TeleH | Otolaryngology | Erik Lambert | | | 2020 | [facility] | | MD Jacoby [address] | | | | uled | | [address] | | | | | | [place], [place] | | | | | | [address] | | | | | | [phone] | | | | | | | | +--------+ + + + + documented as of this encounter Visit Diagnoses Not on filedocumented in this encounter"
--- OUTSIDE RECORDS SUMMARY | ~2019-12-30 | XMS | Encounter Summary ---
Demographics + + + | Address | [address] | | | [place] [address] | + + + | Home Phone | | + + + | Preferred Language | Unknown | + + + | Marital Status | Single | + + + | Hinduism Affiliation | NRP | + + + | Race | White | + + + | Ethnic Group | Not or | + + + Author + + + | Author | [facility] | + + + | Organization | [facility] | + + + | Address | Unknown | + + + | Phone | Unavailable | + + + Support + + +---------+ + | Name | Relationship | Address | Phone | + + +---------+ + | Kiara Jaimes | ECON | Unknown | | + + +---------+ + Care Team Providers + +------+ + | Care House Mover Name | Role | Phone | + +------+ + | Meagan Ayala MD | PCP | | + +------+ + Encounter Details +--------+ + + + + | Date | Type | Department | Care Team | Description | +--------+ + + + + | 02/07/ | Procedure | [facility] | | | | 2019 | Pass | [facility] | | | | | | and Healing Surgery | | | | | | Center Admitting | | | | | | Desk Located on the | | | | | | 4th floor [address] | | | | | | [address] [place], | | | | | | [place] [address] | | | +--------+ + + + [...] Erik Lambert | | | 2020 | [facility] | | MD Jacoby [address] | | | | giovany | | [address] | | | | | | [place], [place] | | | | | | [address] | | | | | | [phone] | | | | | | | | +--------+ + + + + documented as of this encounter Visit Diagnoses Not on filedocumented in this encounter"
--- OUTSIDE RECORDS SUMMARY | ~2019-12-30 | XMS | Encounter Summary ---
Demographics + + + | Address | [address] | | | [place] [address] | + + + | Home Phone | | + + + | Preferred Language | Unknown | + + + | Marital Status | Single | + + + | Sikhism Affiliation | NRP | + + + [...] Team Providers + +------+ + | Care Motor Equipment Commanding Officer Name | Role | Phone | + +------+ + | Meagan Ayala MD | PCP | | + +------+ + Encounter Details +--------+ + + + + | Date | Type | Department | Care Team | Description | +--------+ + + + + | 03/17/ | MyChart | [facility] | Erik Lambert | RE: Medication | | 2019 | Encounter | Center at [facility] [address] | MD Jacoby [address] | | | | | [address] | e [address] | | | | | for Health and | [facility] [place] | | | | | Healing, Building [address], | [address] | | | | | 5th Floor | [phone] | | | | | [place], [place] | | | | | | [address] | | | | | | [phone] | | | +--------+ + + + [...] 2020 | marcus-Pool | | MD Jacoby [address] | | | | giovany | | [address] [facility] [address] | | | | | | [place], [place] | | | | | | [address] | | | | | | [phone] | | | | | | | | +--------+ + + + + documented as of this encounter Visit Diagnoses Not on filedocumented in this encounter"
--- OUTSIDE RECORDS SUMMARY | ~2019-12-30 | XMS | Encounter Summary ---
Demographics + + + | Address | [address] | | | [place] [address] | + + + | Home Phone | | + + + | Preferred Language | Unknown | + + + | Marital Status | Single | + + + | Baptist Affiliation | NRP | + + + | Race | White | + + + | Ethnic Group | Not or | + + + Author + + + | Author | [facility] | + + + | Organization | [facility] | + + + | Address | Unknown | + + + | Phone | Unavailable | + + + Support + + +---------+ + | Name | Relationship | Address | Phone | + + +---------+ + | Kiara Jaimes | ECON | Unknown | | + + +---------+ + Care Team Providers + +------+ + | Care Photovoltaic Technician Name | Role | Phone | + +------+ + | Meagan Ayala MD | PCP | | + +------+ + Encounter Details +--------+ + + + + | Date | Type | Department | Care Team | Description | +--------+ + + + + | 01/20/ | Telephone | [facility] | Erik Lambert | | | 2019 | | Center at [facility] [address] | MD Jacoby [address] | | | | | [address] [facility] | [address] | | | | | for Health and | [facility] [place] | | | | | [facility], [address], | [address] | | | | | 5th Floor | [phone] | | | | | [place], [place] | | | | | | [address] | | | | | | [phone] | | | +--------+ + + + [...] 5 | | | | | | [facility], [place] | | | | | | [address] | | | | | | [phone] | | | | | | | | +--------+ + + + + documented as of this encounter Visit Diagnoses Not on filedocumented in this encounter"
--- OUTSIDE RECORDS SUMMARY | ~2019-12-30 | XMS | Encounter Summary ---
Demographics + + + | Address | [address] | | | [place] [address] | + + + | Home Phone [...] | + + +---------+ + | Kiara Jaiems | ECON | Unknown | | + + +---------+ + Care Team Providers + +------+ + | Care Circulator Name | Role | Phone | + [...] Dermatology | | | | | | [address] | | | | | | [facility] | | | | | | [address] [place], | | | | | | [place] [address] | | | | | | [phone] | | | | | | | [...] 2020 | marcus-Sched | | MD Jacoby [address] | | | | gi[address]any | | [address] | | | | | | [place], [place] | | | | | | [address] | | | | | | [phone] | | | | | | | [...] | | DERMATOPATH | | | | [id number] OF | | OLOGY | | | | SPECIMEN:B FIRST TISSUE | | | | | | [place] [address] | | | | | | CLINICAL DESCRIPTION:A: | | | | | | Punch, Lt. breast, 5mm | | | | | | irregular shape, jones, | | | | | | R/O melanoma.B: Punch, | | | | | | Lt. upper abdomen, | | | | | | nevus.2 slides | | | | | | ([id number]) received. | | | | | | [...] | | | | | | slides ([id number]) | | | | | | returned [...] [facility] | [address] | [place] [address] | | | DERMATOPATHOLOGY | [address] | | | + + + + + | [facility] | [address] | [place] [address] | | | DERMATOPATHOLOGY | [address] | | | + + + + + documented in this encounter Visit Diagnoses Not on filedocumented in this encounter"
--- OUTSIDE RECORDS SUMMARY | ~2019-12-30 | XMS | Encounter Summary ---
Demographics + + + | Address | [address] | | | [place] [address] | + + + | Home Phone | | + + + | Preferred Language | Unknown | + + + | Marital Status | Single | + + + | Restoration Affiliation | NRP | + + + [...] Team Providers + +------+ + | Care Pump Servicer Helper Name | Role | Phone | [...] 5 | | | | | | [place] | | | | | | [address] | | | | | | [phone] | | | | | | | | +--------+ + + + + documented as of this encounter Visit Diagnoses Not on filedocumented in this encounter"
--- OUTSIDE RECORDS SUMMARY | ~2019-12-30 | XMS | Encounter Summary ---
Demographics + + + | Address | [address] | | | [place] [address] | + + + | Home Phone | | + + + | Preferred Language | Unknown | + + + | Marital Status | Single | + + + | Buddhist Affiliation | NRP | + + + [...] Team Providers + +------+ + | Care School Supervisor Name | Role | Phone | + [...] | | | | [address] [facility] | [place], [place] | | | | | [address] | [address] | | | | | [place], [place] | [phone] | | | | | [address] | | | | | | [phone] | | | +--------+ + + + [...] 5 | | | | | | [place], [place] | | | | | | [address] | | | | | | [phone] | | | | | | | [...] | | + +---------+ + + | [facility] DEPARTMENT OF | | | | [...] | | | | | | at [facility]. | | | | | | [...] | | + +---------+ + + | [facility] DEPARTMENT OF | | | | | RADIOLOGY | | | | + +---------+ + + documented in this encounter Visit Diagnoses Not on filedocumented in this encounter"
--- OUTSIDE RECORDS SUMMARY | ~2019-12-30 | XMS | Encounter Summary ---
Demographics + + + | Address | [address] | | | [place] [address] | + + + | Home Phone [...] Providers + +------+ + | Care Associate Professor Of Biology Name | Role | Phone | + +------+ + | Meagan Ayala MD | PCP | | + +------+ + Encounter Details +--------+ + + + + | Date | Type | Department | Care Team | Description | +--------+ + + + + | 12/01/ | MyChart | [facility] | Erik Lambert | RE: My prescription | | 2020 | Encounter | Center at [facility] | MD Jacoby [address] | | | | | [address] | [address] | | | | | for Health and | [place], [place] | | | | | Healing, [address], | [address] | | | | | 5th Floor | [phone] | | | | | [place], [place] | | | | | | [address] | | | | | | [phone] | | | +--------+ + + + [...] 5 | | | | | | [place] | | | | | | [address] | | | | | | [phone] | | | | | | | | +--------+ + + + + documented as of this encounter Visit Diagnoses Not on filedocumented in this encounter"
--- OUTSIDE RECORDS SUMMARY | ~2019-12-30 | XMS | Encounter Summary ---
Demographics + + + | Address | [address] | | | [place] [address] | + + + | Home Phone [...] Team Providers + +------+ + | Care Attendant Honor Bar Name | Role | Phone | + +------+ + | Meagan Ayala MD | [place]INO | | + +------+ + Encounter Details +--------+--------+ + + + | Date | Type | Department | Care Team | Description | +--------+--------+ + + + | 03/15/ | Travel | | | | | [...] 2020 | ealth-Sched | | MD Jacoby [address] | | | | [address] | | [address] | | | | | | [place], [place] | | | | | | [address] | | | | | | [phone] | | | | | | | | +--------+ + + + + documented as of this encounter Visit Diagnoses Not on filedocumented in this encounter"
--- OUTSIDE RECORDS SUMMARY | ~2019-12-30 | XMS | Encounter Summary ---
Demographics + + + | Address | [address] | | | [place] [address] | + + + | Home Phone | | + + + | Preferred Language | Unknown | + + + | Marital Status | Single | + + + | Worship Affiliation | NRP | + + + [...] Team Providers + +------+ + | Care Pencils Washer Name | Role | Phone | + +------+ + | Meagan Ayala MD | PCP | | + +------+ + Encounter Details +--------+ + + + + | Date | Type | Department | Care Team | Description | +--------+ + + + + | 12/30/ | Documentati | [facility] | Erik Lambert | | | 2019 | on | Center at [facility] [address] | MD Jacoby [address] | | | | | [address] [facility] | [address] | | | | | for Health and | [facility] [place] | | | | | Healing, [address], | [address] | | | | | 5th Floor | [phone] | | | | | [place], [place] | | | | | | [address] | | | | | | [phone] | | | +--------+ + + + [...] 2020 | anah-Sched | | MD Jacoby [address] | | | | giovany | | [address] | | | | | | [place], [place] | | | | | | [address] | | | | | | [phone] | | | | | | | | +--------+ + + + + documented as of this encounter Visit Diagnoses Not on filedocumented in this encounter"
--- OUTSIDE RECORDS SUMMARY | ~2019-12-30 | XMS | Encounter Summary ---
Demographics + + + | Address | [address] | | | [place] [address] | + + + | Home Phone [...] Providers + +------+ + | Care Senior Developer Name | Role | Phone | + +------+ + | Meagan Ayala MD | PCP | | + +------+ + Encounter Details +--------+ + + + + | Date | Type | Department | Care Team | Description | +--------+ + + + + | 02/07/ | Pharmacy | Pharmacy @ [facility] | | | | 2019 | Visit | [facility] [address] | | | | | | [address] Mailcode: | | | | | | [facility] | | | | | | and Healing, | | | | | | Building [address] | | | | | | [place], [place] | | | | | | [address] | | | +--------+ + + + [...] Erik Lambert | | | 2020 | [facility] | | MD Jacoby [address] | | | | giovany | | mary [facility] [address] | | | | | | [place], [place] | | | | | | [address] | | | | | | [phone] | | | | | | | | +--------+ + + + + documented as of this encounter Visit Diagnoses Not on filedocumented in this encounter"
--- OUTSIDE RECORDS SUMMARY | ~2019-12-30 | XMS | Encounter Summary ---
Demographics + + + | Address | [address] | | | [place] [address] | + + + | Home Phone | | + + + | Preferred Language | Unknown | + + + | Marital Status | Single | + + + | Caodaism Affiliation | NRP | + + + [...] Team Providers + +------+ + | Care Director Of Player Personnel Name | Role | Phone | + +------+ + PCP | Unavailable | + +------+ + Encounter Details +--------+ + + + + | Date | Type | Department | Care Team | Description | +--------+ + + + + | 07/21/ | Office | | Note, Outpatient | [...] documented as of this encounter Progress Notes Faisal, Slubber Frame Changer In - 11/25/2005 3:06 AM PDTCLINIC DATE: 07/21/2002 TELEPHONE NOTE Doni Mike was last seen in the [facility] of Dr. Mika Mitchell on July 06, 2002. At that time, she was continuing to improve and recover from her redo laparoscopic Margarette fundoplication that had been performed on April 05, 2002. Due to some persistent feeling of bloating, she had been started on a course of erythromycin 250-mg tablet 3 times daily. At her last visit, she reported some improvement in the bloating and decided she would like to continue on this course of erythromycin. She has also experienced a sense of swelling in her throat which is mild in nature and not too unchanged from her prior visit. We had agreed that I would call her in 3 weeks' time to check in to see how she was feeling. In discussion with Ms. Mckeon this morning, she reports she is feeling quite a bit a better. The bloating has much improved. She feels that the erythromycin is helping her with this symptom. She does not notice much change in the sensation in her throat although reports this is not interfering with her eating or appetite. I have encouraged her to continue to monitor this and suspect that it will continue to recede with time. Should she find it does not recede, I encouraged her to contact us, so that we can evaluate her swallowing mechanism. She expressed understanding of these instructions and will call Dr. Mitchell' office should she need any further assistance in this regard. Bibi Vargas R.N., A.C.N.P. / [id number] / [id number] / [id number] / Tdocumented in this encounter Plan of [...] 5 | | | | | | [place], [place] | | | | | | [address] | | | | | | [phone] | | | | | | | | +--------+ + + + + documented as of this encounter Visit Diagnoses Not on filedocumented in this encounter"
--- OUTSIDE RECORDS SUMMARY | ~2019-12-30 | XMS | Encounter Summary ---
Demographics + + + | Address | [address] | | | [place] [address] | + + + | Home Phone | | + + + | Preferred Language | Unknown | + + + | Marital Status | Single | + + + | Restorationism Affiliation | NRP | + + + [...] Team Providers + +------+ + | Care Check Weigher Name | Role | Phone | + +------+ + | Meagan Ayala MD | PCP | | + +------+ + Encounter Details +--------+ + + + + | Date | Type | Department | Care Team | Description | +--------+ + + + + | 12/06/ | Pharmacy | Pharmacy @ [facility] | | | | 2020 | Visit | [facility] [address] | | | | | | [address] Mailcode: | | | | | | [facility] | | | | | | and Healing, | | | | | | Building [address] | | | | | | [place], [place] | | | | | | [address] | | | +--------+ + + + [...] [place] | | | | | | [address] | | | | | | [phone] | | | | | | | | +--------+ + + + + documented as of this encounter Visit Diagnoses Not on filedocumented in this encounter"
--- OUTSIDE RECORDS SUMMARY | ~2019-12-30 | XMS | Encounter Summary ---
Demographics + + + | Address | [address] | | | [place] [address] | + + + | Home Phone [...] Team Providers + +------+ + | Care World Designer Name | Role | Phone | + [...] [address] | | | | | | [place] [address] | | | | | | [phone] | | +--------+ + + + + [...] 5 | | | | | | [place], [place] | | | | | | [address] | | | | | | [phone] | | | | | | | [...] | + + + + + | [facility] DEPARTMENT OF | [address] | [place] [address] | | | PATHOLOGY | [address] | | | + + + + + | [facility] DEPARTMENT OF | [address] | [place] [address] | | | PATHOLOGY | [address] [...] | + + + + + | [facility] | [address] [facility] [facility] [address] | [place] [address] | | | PATHOLOGY | [address] | | | + + + + + | [facility] | [address] [facility] | [place] [address] | | | PATHOLOGY | [address] [...] | + + + + + | [facility] DEPARTMENT OF | [address] [facility] | [place] [address] | | | PATHOLOGY | [address] | | | + + + + + | [facility] DEPARTMENT OF | [address] [facility] | [place] [address] | | | PATHOLOGY | [address] | | | + + + + + documented in this encounter Visit Diagnoses Not on filedocumented in this encounter"
--- OUTSIDE RECORDS SUMMARY | ~2019-12-30 | XMS | Encounter Summary ---
Demographics + + + | Address | [address] | | | [place] [address] | + + + | Home Phone [...] Team Providers + +------+ + | Care Skidder Runner Name | Role | Phone | + [...] 2020 | [facility] | | MD Jacoby [address] | | | | gi[address]any | | [address] | | | | | | [place], [place] | | | | | | [address] | | | | | | [phone] | | | | | | | | +--------+ + + + + documented as of this encounter Visit Diagnoses Not on filedocumented in this encounter"
--- OUTSIDE RECORDS SUMMARY | ~2019-12-30 | XMS | Encounter Summary ---
Demographics + + + | Address | [address] | | | [place] [address] | + + + | Home Phone [...] Providers + +------+ + | Care Information Security Director Name | Role | Phone | + [...] 5 | | | | | | [place] | | | | | | [address] | | | | | | [phone] | | | | | | | | +--------+ + + + + documented as of this encounter Visit Diagnoses Not on filedocumented in this encounter"
--- OUTSIDE RECORDS SUMMARY | ~2019-12-30 | XMS | Encounter Summary ---
Demographics + + + | Address | [address] | | | [place] [address] | + + + | Home Phone [...] Team Providers + +------+ + | Care Employment Law Specialist Name | Role | Phone | [...] 5 | | | | | | [place], [place] | | | | | | [address] | | | | | | [phone] | | | | | | | [...] | + + + + + | [facility] | [address] | [place] [address] | | | PATHOLOGY | [address] | | | + + + + + | [facility] | [address] | [place] [address] | | | PATHOLOGY | [address] | | | + + + + + documented in this encounter Visit Diagnoses Not on filedocumented in this encounter"
--- OUTSIDE RECORDS SUMMARY | ~2019-12-30 | XMS | Encounter Summary ---
Demographics + + + | Address | [address] | | | [place] [address] | + + + | Home Phone [...] Author + + + | Author | [facility] | + + + | Organization | [facility] | + + + | Address | Unknown | + + + | Phone | Unavailable | + + + Support + + +---------+ + | Name | Relationship | Address | Phone | + + +---------+ + | Kiara Jaimes | ECON | Unknown | | + + +---------+ + Care Team Providers + +------+ + | Care Medical Insurance Verifier Name | Role | Phone | + +------+ + | Meagan Ayala MD | PCP | | + +------+ + Encounter Details +--------+ + + + + | Date | Type | Department | Care Team | Description | +--------+ + + + + | 10/24/ | Correctional Officer Sergeant | [facility] | Clair Norman | | | 2020 | | Center at [facility] [address] | MD Wendy [address] | | | | | [facility] | [facility] | | | | | [facility] and | [place], [place] | | | | | [facility], [address], | [address] | | | | | [facility] Floor | [phone] | | | | | [place], [place] | | | | | | [address] | | | | | | [phone] | | | +--------+ + + + [...] 2020 | [facility] | | MD Jacoby [address] | | | | giovany | | [address] | | | | | | [facility] [place] | | | | | | [address] | | | | | | [phone] | | | | | | | | +--------+ + + + + documented as of this encounter Visit Diagnoses Not on filedocumented in this encounter"
--- OUTSIDE RECORDS SUMMARY | ~2019-12-30 | XMS | Encounter Summary ---
Demographics + + + | Address | [address] | | | [place] [address] | + + + | Home Phone [...] Team Providers + +------+ + | Care Vice President Media Relations Name | Role | Phone | + [...] as of this encounter Progress Notes Interface, Peanut Sorter In - 12/22/2005 3:02 AM PDTCLINIC DATE: 03/02/2002 CHIEF COMPLAINT: Chest pain and dysphagia. 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 Masood Yanez which showed the [...] rate of 6% to 10% over the adjunct faculty for medical terminology, and we discussed the risk of bleeding and injury to other organs as there will be multiple adhesions. She chooses to proceed. She is going to obtain the upper gastrointestinal study for us in the next week, and she is given an appointment for preadmission testing for EKG and chest x-ray as well as laboratory tests. Fabiola Davison M.D. EBENEZER / MARLENA [id number] / [id number] / [id number] / Tdocumented in this encounter Plan of Treatment +--------+ + + + + | Date | Type | Specialty | Care Team | Description | +--------+ + + + + | 11/27/ | Video/TeleH | Otolaryngology | Erik Lambert | | | 2020 | [facility] | | MD Jacoby [address] | | | | uled | | [address] | | | | | | [place], [place] | | | | | | [address] | | | | | | [phone] | | | | | | | | +--------+ + + + + documented as of this encounter Visit Diagnoses Not on filedocumented in this encounter"
--- OUTSIDE RECORDS SUMMARY | ~2019-12-30 | XMS | Encounter Summary ---
Demographics + + + | Address | [address] | | | [place] [address] | + + + | Home Phone [...] Team Providers + +------+ + | Care Weather Strip Mechanic Name | Role | Phone | [...] 2020 | Rojelio | | MD Jacoby [address] | | | | gi[place]any | | [address] | | | | | | [place], [place] | | | | | | [address] | | | | | | [phone] | | | | | | | | +--------+ + + + + documented as of this encounter Visit Diagnoses Not on filedocumented in this encounter"
--- OUTSIDE RECORDS SUMMARY | ~2019-12-30 | XMS | Encounter Summary ---
Demographics + + + | Address | [address] | | | [place] [address] | + + + | Home Phone [...] Team Providers + +------+ + | Care Windows Application Packager Name | Role | Phone | + [...] 2020 | ealth-Sched | | MD Jacoby [address] | | | | gi[address] | | [address] | | | | | | [place], [place] | | | | | | [address] | | | | | | [phone] | | | | | | | | +--------+ + + + + documented as of this encounter Visit Diagnoses Not on filedocumented in this encounter"
--- OUTSIDE RECORDS SUMMARY | ~2019-12-30 | XMS | Encounter Summary ---
Demographics + + + | Address | [address] | | | [place] [address] | + + + | Home Phone [...] Team Providers + +------+ + | Care Red Lead Burner Name | Role | Phone [...] as of this encounter Progress Notes Interface, Blueprint Processor In - 10/31/2005 1:10 AM PDTCLINIC DATE: [...] M.D. Mika Mitchell M.D. AMOS / MARLENA [id number] / [id number] / [id number] / [id number] C:02/23/2003 JAS documented in this encounter Plan [...] 5 | | | | | | [place], [place] | | | | | | [address] | | | | | | [phone] | | | | | | | | +--------+ + + + + documented as of this encounter Visit Diagnoses Not on filedocumented in this encounter"
--- OUTSIDE RECORDS SUMMARY | ~2019-12-30 | XMS | Encounter Summary ---
Demographics + + + | Address | [address] | | | [place] [address] | + + + | Home Phone [...] Team Providers + +------+ + | Care Supervisor [employer] Name | Role | Phone | + [...] | | | | | Procedures | [facility] | [place] for | | | | | CONSULT TO | Rd | Health and | | | | | ENT SINUS | [place], [place] | Healing, | | | | | | [address] | [address], | | | | | | Phone: | 5th Floor | | | | | | [phone] | [place], [place] | | | | | | Fax: | [address] | | | | | | [phone] | Phone: | | | | | | | [phone] | | | | | | | Fax: | | | | | | | [phone] | +--------+--------+ + + + + Reason for Visit Intake Referral (Routine) [...] | | Disease | Other forms | M, MD 2019 | 3rd Ppv | | | | | of dyspnea | [address] | [address] | | | | | Other | [place], | [address] | | | | | disorders of | [place] [address] | Physician's | | | | | lung | Phone: | Pavilion, | | | | | Procedures | [phone] | 3rd Floor | | | | | [place] | Fax: | [place], [place] | | | | | PATIENT | [phone] | [address] | | | | | LEVEL [place] | | Phone: | | | | | EST PATIENT | | [phone] | | | | | LEVEL [place] | | Fax: | | | | | EVAL OF | | [phone] | | | | | BRONCHOSPASM | | | + +--------+ + + + + Encounter Details +--------+---------+ + + + | Date | Type | Department | Care Team | Description | +--------+---------+ + + + | 12/22/ | Office | Pulmonary & | Alida Bass MD | Chronic cough | | 2019 | Visit | Critical Care | [address] | (Primary Dx); | | | | Medicine at | [facility], | Abnormal finding on | | | | [facility] | [place] [address] | pulmonary function | | | | [address] | [phone] | testing; Chronic | | | | Loop Physician's | | pansinusitis | | | | Pavilion, 3rd Floor | | | | | | [place], [place] | | | | | | [address] | | | | | | [phone] | | | +--------+---------+ + + + [...] + + + | Blood Pressure | 126/53 | 12/22/2018 9:20 AM | auto | | | | PDT | | + + + + + | Pulse | 76 | 12/22/2018 9:20 AM | | | | | PDT | | + + + + + | Temperature | 36.1 C (96.9 F) | 12/22/2018 9:20 AM | | | | | PDT | | + + + + + | Respiratory Rate | 16 | 12/22/2018 9:20 AM | | | | | PDT | | + + + + + | Oxygen Saturation | 99% | 12/22/2018 9:20 AM | | | | | PDT | | + + + + + | Inhaled Oxygen | - | - | | | Concentration | | | | + + + + + | Weight | 84.8 kg (186 lb 15.2 | 12/22/2018 9:20 AM | | | | oz) | PDT | | + + + + + | Height | 163.5 cm (5' 4.37") | 12/22/2018 9:20 AM | | | | | PDT | | + + + + + | Body Mass Index | 31.72 | 12/22/2018 9:20 AM | | | | | PDT | | + + + + + documented in this encounter Patient Instructions Patient Instructions Alida Bass MD - 12/22/2018 9:20 AM PDTWhat is my diagnosis/What a m I being treated for? - chronic cough - abnormal pulmonary function tests What is my plan for today s visit (what tests I have to do when I leave, how am I suppose d to use my medications)? - 2nd opinion from [facility] sinus surgeons (they will call you but their number is on here) - Dr Bass will review CT scan - if anything we need to follow up on, will let you know - if CT scan shows thickened airways, then we can do blood testing to look for an allergy t o a common mold What is the name of the doctor I saw today? -Alida Bass MD How do I get in touch with the doctor(s) in case I have a question? -Call [phone] We recommend signing up for [employer] our secure online messaging system that will allow you to communicate with your provider electronically. Directions for signing up are included in this packet. My Chart is an excellent way to ask questions and get advice about non-urgent problems. For more pressing concerns, call our office. In the event of an medical emergency you shou ld call 911 or present to the nearest Emergency Room. documented in this encounter Progress Notes Alida Bass MD - 12/22/2018 9:20 AM PDT NEW PATIENT CONSULTATION Name: Helen Crawford Mike Referred by: Meagan Ayala MD [address] [place] [address], [place] [address] PCP: Meagan Ayala MD No primary provider on file. Reason for consultation: Dyspnea and cough, second opinion Chief complaint / ID: 63 year old woman with chronic cough HPI: Ms. Bray says she has had a cough for about 2 years which she attributes to her sinuses. She states she has had a sinus infection for 2 years. 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 Had s ome garbage splashed on her face two years ago. After that she developed a hacking cough pro ductive of green / yellow / white sputum. Says she had mold found in her sputum at one point . Says she say an ENT who did a CT scan and her sinuses were "totally infected," then had si nus surgery which revealed polyps and "fungus" but nothing grew on cultures. She has gotten multiple rounds of antibiotics but never systemic steroids because of her diabetes. She has been on and off nasal steroids. The cough continues and she produces sputum daily. It does not wake her up at night. She sa ys she is prone to bronchitis and likes to get antibiotics for URIs so they do not make her worse. Had pneumonia as a young adult. As best as I can tell from the records from the PCP, she has seen a maintenance associate in the [facility] area who attributed her symptoms to obesity. She did not agree with this impression and requested a second opinion. It sounds like a cardiopulmonary exercise test had also been re commended. She used to be really active but can't work out anymore because that tends to generate coug truman. Sometimes dyspneic with talking. Has gained a little weight. Had tummy tuck but doesn' t feel her abdomen is tight. No orthopnea but has slept slightly elevated for a while. PMH: # DM # Chronic sinusitis # GERD - asymptomatic on PPI - had "GERD surgery" a long time ago (?fundoplication? No childhood asthma. Did have pneumonia around age 21. PSH: # Breast implants # Tummy tuck # Sinus surgery # "GERD surgery" Medications: Acyclovir 400mg Omeprazole 40mg Victoza 1.8mg Actos 30mg Toujeo 18 units Losartan 25 mg Lovastatin 25mg MVI Magnesium Allergies: Allergies Allergen Reactions Bee Sting [Hymenoptera Allergenic Extract] Anaphylaxis and Hives Lydia [Hydrocodone-Acetaminophen] Hives Social History: - Tobacco use: Per PCP records, she has a 41-86-jvfc-year smoking history but quit 30 years ago. 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 Previously worked in a [employer]. - Pets: cat. Dog. No birds - Housing: lives in a house, older. Furnace, no wood stove. Central air. - Travel history: lived in [place] x 30 years. From [facility] ([place]) - Hobbies: no hot tub, no sauna, no musical instruments, no hay / anshul + exposed to TB at work, has been tested and supposedly negative, no records Family history: - family history of lung disease: no lung issues - rheumatologic disease: brother had type I DM but no SLE or other - cardiovascular disease: grandmother - other: mom had Parkinson's, dad young so she doesn't know much about his hx ROS: Constitutional: no night sweats / chills HEENT: no vision / hearing change - see above for sinus Lymph: no adenopathy Cardiac: no chest pain Pulm: see above GI: does have dysphagia (has had 3 esophageal dilations including after surgery) : no gross hematuria, referred to urology for microscopic Skin: no rashes Heme: no bruising /bleeding MSK: no joint swelling / pain Neuro: sometimes gets tingling in hands Physical Exam BP 126/53 (BP Location: Right upper arm, Patient Position: Sitting) Comment: auto | Pulse 7 6 | Temp 36.1 C (96.9 F) (Forehead) | Resp 16 | Ht 1.635 m (5' 4.37") | Wt 84.8 kg ( 186 lb 15.2 oz) | SpO2 99% | BMI 31.72 kg/m | BSA 1.96 m Gen: well appearing middle aged woman in no distress HEENT: voice is nasal. Mallampati II airway. Neck: no cervical or supraclavicular adenopathy Lungs: breathing and speaking easily on room air. Lungs are clear to auscultation without r honchi, wheezing, or crackles. Cardiovascular: RRR with II/ systolic murmur heard best at RUSB Abdomen: nondistended Skin: no apparent rash Joints: normal appearing wrists, MCPs, PIPs, DIPs. Small bump on palmar surface of L 3rd fi nger ? Ganglion cyst Neuro: fluent speech Psych: normal affect, a bit tearful in describing her frustrating course Data: Imaging: I personally reviewed the following studies and these are my interpretations unles s noted: CTA 06/2017: I cannot load CD in clinic but report states "no PE. Mild scattered atelectasis . Lungs otherwise clear and well aerated. No pleural effusions. No enlarged / pathologic lym ph nodes" 04/2017 CT sinuses (report): pansinusitis. L and R mastoid fluid. Effusion in middle ear. PFTs: Ped Pre Spirometry Latest Ref Rng & Units 12/22/2018 FVC PRE 3.29 L 2.53 FVC PRE (%REF) % 76 FEV1 PRE 2.53 L 2.16 FEV1 PRE (%REF) % 85 FEV1/FVC PRE 78 % 85 PFT's Lung Volumes TLC Pre TLC % RV Pre RV % DLCO Adj Pre DLCO Adj % 6 Minute Walk 12/22/18 0804 3.94 77 1.49 72 21.19 98 Looks like maneuvers were good for today's PFTs. My interpretation is of mild restrictive ventilatory impairment based on mildly reduced FVC and TLC. RV is also reduced. Surface area for gas exchange is normal. There is no evidence for airflow obstruction. Flow volume loop normal. Echo 2018: -Essentially number normal biventricular function with aortic sclerosis but no stenosis. L imited windows. Labs: - recent sinus cx "rare coag negative staph" - 2 CBCs, from 2017 and 2018, without eosinophilia - 02/2017 AFB cx which is negative, but I don't see the source - gabe albicans in culture from 02/27/17 IMPRESSION Ms. Bray is a 63-year-old woman with a 2-year history of chronic, productive cough and ab normal pulmonary function testing. I am not sure these 2 problems are related. Regarding her cough, I agree with her that it is most likely due to her chronic sinusitis. She has had chest imaging that is reportedly normal, and her sinus symptoms seem very promi nent. Though she has a history of nasal polyps, her symptoms to me do not seem consistent w ith aspirin exacerbated respiratory disease. I will refer her to the sinus surgeons at [facility] for second opinion. Initially, I wondered about ABPA in her, but this is unlikely given th at she does not have a prior history of asthma, but no bronchiectasis was seen on her [address], and subsequently I was able to find the fungus that was growing her sputum culture, which is Gabe albicans, generally continuing consider to be an oral contaminant and not indicative of a pathogenic process. Regarding her abnormal pulmonary function testing, she does indeed have a mild restrictive ventilatory impairment with normal surface area for gas exchange. Typically, this pattern i s seen in patients with extraparenchymal restriction: This includes neuromuscular disease, c hest wall disorders such as scoliosis, or obesity. However, in my experience, we do not see changes in pulmonary function testing until weights far above the patient's (usually a BMI of 40). Therefore, I told the patient that I do not think her mild restriction is related t o her weight. Based on her history, there is not an obvious explanation for her mild restri ction. RECOMMENDATIONS & PLAN 1) 2nd opinion from [facility] ENT sinus group 2) I will review her 06/2017 CT scan before ordering more imaging or further testing given t hat her symptoms are unchanged since that time the CT was done 3) Repeat PFTs at some point to follow up the current restrictive pattern, would recommend 1 year at the soonest unless symptoms worsen Follow up by phone. It is OK to leave a message. I confirmed her number. MD Alida Simpson MD PULMONARY & CRITICAL CARE MEDICINE AT [address] Mailcode: [id number] [place] [address] documented in this enco unter Plan of Treatment +--------+ + + + + | Date | Type | Specialty | Care Team | Description | +--------+ + + + + | 11/27/ | Video/TeleH | Otolaryngology | Erik Lambert | | | 2020 | ealth-Sched | | MD Jacoby [address] | | | | uled | | [address] | | | | | | [place], [place] | | | | | | [address] | | | | | | [phone] | | | | | | | | +--------+ + + + + documented as of this encounter Visit Diagnoses + + | Diagnosis | + + | Chronic cough - Primary Cough | + + | Abnormal finding on pulmonary function testing Nonspecific abnormal results of | | pulmonary system function study | + + | Chronic pansinusitis Other chronic sinusitis | + + documented in this encounter
--- OUTSIDE RECORDS SUMMARY | ~2019-12-30 | XMS | Encounter Summary ---
Demographics + + + | Address | [address] | | | [place] [address] | + + + | Home Phone [...] Team Providers + +------+ + | Care Analysis Engineer Name | Role | Phone | [...] 2020 | ealth-Sched | | MD Jacoby [address] | | | | [address] | | [address] | | | | | | [place], [place] | | | | | | [address] | | | | | | [phone] | | | | | | | | +--------+ + + + + documented as of this encounter Visit Diagnoses Not on filedocumented in this encounter"
--- OUTSIDE RECORDS SUMMARY | ~2019-12-30 | XMS | Encounter Summary ---
Demographics + + + | Address | [address] | | | [place] [address] | + + + | Home Phone [...] + + + | Author | [facility] | + + + | Organization | [facility] | + + + | Address | Unknown | + + + | Phone | Unavailable | + + + Support + + +---------+ + | Name | Relationship | Address | Phone | + + +---------+ + | Kiara Jaimes | ECON | Unknown | | + + +---------+ + Care Team Providers + +------+ + | Care Document Reviewer Name | Role | Phone | [...] | | | | | Procedures | [facility] | [place] for | | | | | CONSULT TO | Rd | Health and | | | | | ENT SINUS | [place], [place] | Healing, | | | | | | [address] | [address], | | | | | | Phone: | 5th Floor | | | | | | [phone] | [place], [place] | | | | | | Fax: | [address] | | | | | | [phone] | Phone: | | | | | | | [phone] | | | | | | | Fax: | | | | | | | [phone] | +--------+--------+ + + + + Reason [...] | | | disorders of | [place] [address] | Physician's | | | | | lung | Phone: | Pavilion, | | | | | Procedures | [phone] | 3rd Floor | | | | | [place] NEW | Fax: | [place], [place] | | | | | PATIENT | [phone] | [address] | | | | | LEVEL V [place] | | Phone: | | | | | EST PATIENT | | [phone] | | | | | LEVEL V [place] | | Fax: | | | | | EVAL OF | | [phone] | | | | | BRONCHOSPASM | [...] | | | | Medicine at | [facility], | Abnormal finding on | | | | [facility] | [place] [address] | pulmonary function | | | | [address] | [phone] | testing; Chronic | | | | Loop Physician's | | pansinusitis | | | | Pavilion, 3rd Floor | | | | | | [place], [place] | | | | | | [address] | | | | | | [phone] | | | +--------+---------+ + + + [...] use my medications)? - 2nd opinion from [facility] sinus surgeons (they will call you but [...] in case I have a question? -Call [phone] We recommend signing up for [employer] our secure online messaging system that will [...] Crawford Mike Referred by: Meagan Ayala MD [address] [place] [address], [place] [address] PCP: Meagan Ayala MD No primary provider [...] from the PCP, she has seen a interviewing clerk in the [facility] area who attributed her symptoms to obesity. [...] Sting [Hymenoptera Allergenic Extract] Anaphylaxis and Hives [place] [Hydrocodone-Acetaminophen] Hives Social History: - Tobacco use: Per PCP records, she has a 76-01-aznr-year smoking history but quit 30 years ago. 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 Previously worked in a [employer]. - Pets: cat. Dog. No birds - Housing: lives in a house, older. Furnace, no wood stove. Central air. - Travel history: lived in [place] x [address] [facility] ([place]) - Hobbies: no hot tub, no sauna, [...] refer her to the sinus surgeons at [facility] for second opinion. Initially, I wondered about [...] RECOMMENDATIONS & PLAN 1) 2nd opinion from [facility] ENT sinus group 2) I will review [...] MD PULMONARY & CRITICAL CARE MEDICINE AT [address] Mailcode: [id number] [place] [address] documented in this enco unter Plan of Treatment +--------+ + + + + | Date | Type | Specialty | Care Team | Description | +--------+ + + + + | 11/27/ | Video/TeleH | Otolaryngology | Erik Lambert | | | 2020 | ealth-Sched | | MD Jacoby [address] | | | | uled | | [address] | | | | | | [place], [place] | | | | | | [address] | | | | | | [phone] | | | | | | | [...]
--- OUTSIDE RECORDS SUMMARY | ~2019-12-30 | XMS | Encounter Summary ---
Demographics + + + | Address | [address] | | | [place] [address] | + + + | Home Phone | | + + + | Preferred Language | Unknown | + + + | Marital Status | Single | + + + | Baptism Affiliation | NRP | + + + | Race | White | + + + | Ethnic Group | Not or | + + + Author + + + | Author | [facility] | + + + | Organization | [facility] | + + + | Address | Unknown | + + + | Phone | Unavailable | + + + Support + + +---------+ + | Name | Relationship | Address | Phone | + + +---------+ + | Kiara Jaimes | ECON | Unknown | | + + +---------+ + Care Team Providers + +------+ + | Care Table Games Supervisor Name | Role | Phone | + +------+ + | Meagan Ayala MD | PCP | | + +------+ + Encounter Details +--------+ + + + + | Date | Type | Department | Care Team | Description | +--------+ + + + + | 11/20/ | Pharmacy | [facility] | | | | 2020 | Visit | [address] | | | | | | [address] | | | | | | [place] [address] | | | | | | [phone] | | | +--------+ + + + [...] 5 | | | | | | [place], [place] | | | | | | [address] | | | | | | [phone] | | | | | | | | +--------+ + + + + documented as of this encounter Visit Diagnoses Not on filedocumented in this encounter"
--- OUTSIDE RECORDS SUMMARY | ~2019-12-30 | XMS | Encounter Summary ---
Demographics + + + | Address | [address] | | | [place] [address] | + + + | Home Phone | | + + + | Preferred Language | Unknown | + + + | Marital Status | Single | + + + | Yarsanism Affiliation | NRP | + + + [...] Team Providers + +------+ + | Care Plasterer Spot Name | Role | Phone | + [...] as of this encounter Progress Notes Faisal, Heading Repairer In - 11/25/2005 3:06 AM PDTCLINIC DATE: [...] this regard. Bibi Vargas R.N., A.C.N.P. / [id number] / [id number] / [id number] / Tdocumented in this encounter Plan of [...] 5 | | | | | | [place], [place] | | | | | | [address] | | | | | | [phone] | | | | | | | | +--------+ + + + + documented as of this encounter Visit Diagnoses Not on filedocumented in this encounter"
--- OUTSIDE RECORDS SUMMARY | ~2019-12-30 | XMS | Encounter Summary ---
Demographics + + + | Address | [address] | | | [place] [address] | + + + | Home Phone | | + + + | Preferred Language | Unknown | + + + | Marital Status | Single | + + + | Spiritism Affiliation | NRP | + + + [...] Team Providers + +------+ + | Care Submarine Worker Name | Role | Phone | [...] 2019 | | Critical Care | [address] | | | | | Medicine at | [facility], | | | | | [facility] | [place] [address] | | | | | [address] | [phone] | | | | | Loop Physician's | | | | | | Pav[facility], [facility] Floor | | | | | | [place], [place] | | | | | | [address] | | | | | | [phone] | | | +--------+ + + + [...] 5 | | | | | | [place], [place] | | | | | | [address] | | | | | | [phone] | | | | | | | | +--------+ + + + + documented as of this encounter Visit Diagnoses Not on filedocumented in this encounter"
--- OUTSIDE RECORDS SUMMARY | ~2019-12-30 | XMS | Encounter Summary ---
Demographics + + + | Address | [address] | | | [place] [address] | + + + | Home Phone [...] Team Providers + +------+ + | Care Floor Renovator Name | Role | Phone | + [...] as of this encounter Progress Notes Interface, Sql Architect In - 11/17/2005 1:03 AM PDTCLINIC DATE: 04/27/2002 [facility] PHONE CONSULTATION Phone call from the patient who had a laparoscopic Margarette fundoplication on April 05, 2002, and was released to 2 weeks of light duty beginning on May 23, 2002; however, her job noted that they do have a 3-week light duty project which begins the week prior on May 16, 2002. 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 The patient's boss was called by Dr. Fabiola Davison and was told that there would be no problem with her pursuing this job. Alysa ArguelloADoniC. JOSUE / [id number] / [id number] / [id number] / [id number] C: 06/01/2002 lh documented in this encounter Plan of Treatment +--------+ + + + + | Date | Type | Specialty | Care Team | Description | +--------+ + + + + | 11/27/ | Video/TeleH | Otolaryngology | Erik Lamebrt | | | 2020 | ealth-Sched | | MD Jacoby [address] | | | | giovany | | [address] | | | | | | [place], [place] | | | | | | [address] | | | | | | [phone] | | | | | | | | +--------+ + + + + documented as of this encounter Visit Diagnoses Not on filedocumented in this encounter"
--- OUTSIDE RECORDS SUMMARY | ~2019-12-30 | XMS | Encounter Summary ---
Demographics + + + | Address | [address] | | | [place] [address] | + + + | Home Phone [...] Team Providers + +------+ + | Care Split Leather Department Supervisor Name | Role | Phone | + +------+ + PCP | Unavailable | + +------+ + Encounter Details +--------+ + + + + | Date | Type | Department | Care Team | Description | +--------+ + + + + | 06/15/ | Office | | Note, Outpatient | [...] as of this encounter Progress Notes Interface, Community Services Coordinator In - 11/17/2005 1:03 AM PDTCLINIC DATE: 06/15/2002 [facility] HISTORY: The patient is a 43-year-old female who underwent a redo laparoscopic Margarette fundoplication on April 05, 2002. Findings at the time of operation were an intact wrap that has slipped up into the chest through the crural closure which was disrupted. The wrap was mobilized including a significant length of esophagus. The crural closure was redone with pledgets. The patient was last seen in April 2002 and was doing well at that time. She returns to clinic today complaining of significant bloating after eating even small meals. She is having difficulty burping. She has not had any emesis but has had some nausea. Associated with the bloating, she feels a swelling sensation in her throat. She denies significant dysphagia. She denies return of her epigastric pain which was present prior to her redo Margarette operation. She has not been evaluated with an upper GI. She has not been treated with any promotility agents. OBJECTIVE: On exam, her incisions are well healed. Her abdomen is soft and nontender. She may have some gastric distention on exam; however, I am not entirely convinced of this. She does not have a tympanitic area. ASSESSMENT: Bloating status post redo laparoscopic Margarette fundoplication on April 05, 2002. Based on her constellation of symptoms, this probably represents poor gastric emptying. PLAN: We will give her a trial of erythromycin 250 mg p.o. t.i.d. She was informed that this may help relieve her symptoms. She was also informed that if this makes her symptoms worse, she should discontinue this medication. She was counseled that perhaps her pylorus is not relaxing and this is contributing to her gas bloat. She was told that this usually resolves over time but sometimes takes 3 or 4 months. We will see her back in 3 weeks in clinic to assess whether the erythromycin is helping her. Jade Fu M.D. Resident, Surgery Mika Mitchell M.D. [facility] [place] [id number] / [id number] / [id number] / [id number] Tdocumented in this encounter Plan of Treatment +--------+ + + + + | Date | Type | Specialty | Care Team | Description | +--------+ + + + + | 11/27/ | Video/TeleH | Otolaryngology | Erik Lambert | | | 2020 | marcus-Pool | | MD Jacoby [address] | | | | giovany | | [address] | | | | | | [place], [place] | | | | | | [address] | | | | | | [phone] | | | | | | | | +--------+ + + + + documented as of this encounter Visit Diagnoses Not on filedocumented in this encounter"
--- OUTSIDE RECORDS SUMMARY | ~2019-12-30 | XMS | Encounter Summary ---
Demographics + + + | Address | [address] | | | [place] [address] | + + + | Home Phone [...] Team Providers + +------+ + | Care Camera Machinist Name | Role | Phone | + [...] | | | 2019 | Event | [facility] | MD Abdon Schwarz | | | | | and Healing Surgery | [address] | | | | | Center Admitting | [place], [place] | | | | | Desk Located on the | [address] | | | | | 4th floor [address] | [phone] | | | | | [address] [place], | | | | | | [place] [address] | Ede Kiran, | | | | | | RADIATOR TESTER [address] | | | | | | [address] | | | | | | [place], [place] | | | | | | [address] | | | | | | [phone] | | | | | | | [...] Erik Lambert | | | 2020 | [facility]cus-[facility] | | MD Jacoby [address] | | | | giovany | | [address] | | | | | | [place], [place] | | | | | | [address] | | | | | | [phone] | | | | | | | [...]
--- OUTSIDE RECORDS SUMMARY | ~2019-12-30 | XMS | Encounter Summary ---
Demographics + + + | Address | [address] | | | [place] [address] | + + + | Home Phone | | + + + | Preferred Language | Unknown | + + + | Marital Status | Single | + + + | Yazdanism Affiliation | NRP | + + + [...] Team Providers + +------+ + | Care Marketing Budget Analyst Name | Role | Phone | [...] as of this encounter Progress Notes Interface, Public Health Internship In - 11/17/2005 1:03 AM PDTCLINIC DATE: [...] Fu M.D. Resident, Surgery Mika Mitchell M.D. [facility] [place] [id number] / [id number] / [id number] / [id number] Tdocumented in this encounter Plan of Treatment +--------+ + + + + | Date | Type | Specialty | Care Team | Description | +--------+ + + + + | 11/27/ | Video/TeleH | Otolaryngology | Erik Lambert | | | 2020 | marcus-Pool | | MD Jacoby [address] | | | | giovany | | [address] | | | | | | [place], [place] | | | | | | [address] | | | | | | [phone] | | | | | | | | +--------+ + + + + documented as of this encounter Visit Diagnoses Not on filedocumented in this encounter"
--- OUTSIDE RECORDS SUMMARY | ~2019-12-30 | XMS | Encounter Summary ---
Demographics + + + | Address | [address] | | | [place] [address] | + + + | Home Phone [...] Author + + + | Author | [facility] | + + + | Organization | [facility] | + + + | Address | Unknown | + + + | Phone | Unavailable | + + + Support + + +---------+ + | Name | Relationship | Address | Phone | + + +---------+ + | Kiara Jaimes | ECON | Unknown | | + + +---------+ + Care Team Providers + +------+ + | Care Mixer Blender Name | Role | Phone | + [...] | | | | | Procedures | [facility] | [place] for | | | | | CONSULT TO | Rd | Health and | | | | | ENT SINUS | [facility] [place] | Healing, | | | | | | [address] | Building [address], | | | | | | Phone: | 5th Floor | | | | | | [phone] | [place], [place] | | | | | | Fax: | [address] | | | | | | [phone] | Phone: | | | | | | | [phone] | | | | | | | Fax: | | | | | | | [phone] | +--------+--------+ + + + + Encounter Details +--------+---------+ + + + | Date | Type | Department | Care Team | Description | +--------+---------+ + + + | 02/15/ | Office | [place] [facility] | Erik Lambert | Chronic pansinusitis | | 2019 | Visit | Center at [facility] [address] | NMD [address] | (Primary Dx); Polyp | | | | [address] | [address] | of nasal cavity | | | | for Health and | [facility] [place] | | | | | [facility] Building 1, | [address] | | | | | [facility] Floor | [phone] | | | | | [place], [place] | | | | | | [address] | | | | | | [phone] | | | +--------+---------+ + + + [...] might be differen t from the original. [facility] INTERVAL HISTORY: Doing well post-op Surgery Date: 02/07/19 Bilateral revision maxillary antrostomy with tissue removal Bilateral revision total ethmoidectomy Bilateral revision sphenoidotomy Bilateral frontal sinusotomy with tissue removal Resection of bilateral middle turbinates Stereotactic image guidance HPI: Helen Bray is a 63 y.o. female who presents to the [facility] CRSw[facility]. 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 Dr. Rai Singh performed her surgery in October 2017. She reports she was told she had param yps and "fungus" removed from her sinuses. Her most recent CT a few months ago at [facility]. 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 Ad councilman 30 to 60 minutes before meals Oregano [...] Sting [Hymenoptera Allergenic Extract] Anaphylaxis and Hives [place] [Hydrocodone-Acetaminophen] Hives PHYSICAL EXAM: Anterior rhinoscopy reveals [...] 5 | | | | | | [place], [place] | | | | | | [address] | | | | | | [phone] | | | | | | | | +--------+ + + + + documented as of this encounter Procedures + +--------+ + + + | Procedure Name | Priori | Date/Time | Associated Diagnosis | Comments | | | ty | | | | + +--------+ + + + | [place] NASAL | Routin | 02/15/2019 | Chronic [...]
--- OUTSIDE RECORDS SUMMARY | ~2019-12-30 | XMS | Encounter Summary ---
Demographics + + + | Address | [address] | | | [place] [address] | + + + | Home Phone [...] Team Providers + +------+ + | Care Torts Law Professor Name | Role | Phone | + [...] | | | | | Procedures | [place] | [place] for | | | | | CT SINUS | Cherelle | [facility] and | | | | | WO CONTRAST | [place], [place] | Healing, | | | | | ROUTINE | [address] | Building 1, | | | | | | Phone: | 3rd Floor | | | | | | [phone] | [facility] [place] | | | | | | Fax: | [address] | | | | | | [phone] | Phone: | | | | | | | [phone] | | | | | | | Fax: | | | | | | | [phone] | +--------+--------+ + + + + Reason [...] | | | | | Procedures | [place] | [place] for | | | | | CT SINUS | [place] | [facility] and | | | | | WO CONTRAST | [facility] [place] | Healing, | | | | | ROUTINE | [address] | Building 1, | | | | | | Phone: | 3rd Floor | | | | | | [phone] | [place], [place] | | | | | | Fax: | [address] | | | | | | [phone] | Phone: | | | | | | | [phone] | | | | | | | Fax: | | | | | | | [phone] | +--------+--------+ + + + + Encounter Details +--------+ + + + + | Date | Type | Department | Care Team | Description | +--------+ + + + + | 02/06/ | Hospital | Diagnostic Imaging | Erik Lambert | | | 2018 | Encounter | Services at [facility] | MD Jacoby [address] | | | | | [address] | [address] | | | | | Chere[address] [facility] | [place], [place] | | | | | [address] | [address] | | | | | [place], [place] | [phone] | | | | | [address] | | | | | | [phone] | | | +--------+ + + + [...] 5 | | | | | | [place], [place] | | | | | | [address] | | | | | | [phone] | | | | | | | [...]
--- OUTSIDE RECORDS SUMMARY | ~2019-12-30 | XMS | Encounter Summary ---
Demographics + + + | Address | [address] | | | [place] [address] | + + + | Home Phone [...] Team Providers + +------+ + | Care Pharmacy Technology Instructor Name | Role | Phone | [...] | | | | | | | [place], [place] | | | | | | | [address] | | | | | | | Phone: | | | | | | | [phone] | | | | | | | Fax: | | | | | | | [phone] | + +--------+ + + + + Encounter Details +--------+---------+ + + + | Date | Type | Department | Care Team | Description | +--------+---------+ + + + | 11/24/ | Office | [place] [facility] | Erik Lambert | Chronic pansinusitis | | 2019 | Visit | Center at [facility] [address] | NMD [address] | (Primary Dx) | | | | [address] | [address] | | | | | for Health and | [place], [place] | | | | | Healing, Building 1, | [address] | | | | | [address] [place] [address] | [phone] | | | | | [place], [place] | | | | | | [address] | | | | | | [phone] | | | +--------+---------+ + + + [...] + + + | Blood Pressure | - | - | | + + + + + | Pulse | - | - | | + + + + + | Temperature | 36.8 C (98.3 F) | 11/25/2019 8:42 AM | | | | | PDT | | + + + + + | Respiratory Rate | - | - | | + + + + + | Oxygen Saturation | - | - | | + + + + + | Inhaled Oxygen | - | - | | | Concentration | | | | + + + + + | Weight | - | - | | + + + + + | Height | - | - | | + + + + + | Body Mass Index | - | - | | + + + + + documented in this encounter Progress Notes Erik Lambert MD - 11/25/2019 9:00 AM [facility] HISTORY: Helen Bray is a 63 y.o. female who presents to the [facility] for f ollow up of Chronic rhinosinusitis. She is s/p revision FESS 02/07/19. She was last seen 07/05/19. She moved to [place] 6 weeks ago and has been doing well. Denies any recent si nus infections or significant facial pressure or pain. Mild to moderate hyposmia which is st able. Occasional cough. She is currently using budesonide rinses 1 mg BID. She is also taking azithromycin for muco stasis. She is no longer using Astelin. SNOT 22: 20 (previously 50) PHYSICAL EXAM:Ear, nose, and throat exam reveals a pleasant, well-developed, well-naman shed patient, in no apparent distress. Voice quality is within normal limits. Anterior rhi noscopy reveals mucosa with no significant signs of erythema or inflammation. No polyps or purulence are noted. Clear mucous suctioned from left frontal recess. PROCEDURE:Diagnostic Nasal Endoscopy Anesthesia: Lidocaine 4% topical anesthetic was placed. Description of Procedure: A rigid endoscope was utilized to evaluate the sinonasal caviti es, mucosa, sinus ostia and turbinates. Sinuses are patent, no polyps or purulence. She do es have evidence of very mild mucostasis in bilateral maxillary sinuses. IMPRESSION/PLAN:Helen Bray is a 63 y.o. female who presents to the [place] [facility] for follow up of Chronic rhinosinusitis.She is doing very well. PLAN: -Continue budesonide rinses BID and finish course of azithromycin -Follow up with virtual visit in 1 year, or earlier if issues arise -May transition care for Dr. Randhawa in [place] after next visit We have spent at [id number] time in counseling on the disease process, treatment op tions, and ramifications. More than half of the visit was spent discussing the diagnosis, tr eatment options and prognosis. ERIK LAMBERT MD Miles Parrish MD - 11/25/2019 9:00 AM PDTRefill sent to new pharmacy documented in this encounter Plan of Treatment +--------+ + + + + | Date | Type | Specialty | Care Team | Description | +--------+ + + + + | 11/27/ | Video/TeleH | Otolaryngology | Erik Lambert | | | 2020 | marcus-Sched | | MD Jacoby [address] | | | | giovany | | [address] | | | | | | [place], [place] | | | | | | [address] | | | | | | [phone] | | | | | | | | +--------+ + + + + documented as of this encounter Procedures + +--------+ + + + | Procedure Name | Priori | Date/Time | Associated Diagnosis | Comments | | | ty | | | | + +--------+ + + + | [place] NASAL | Routin | 11/25/2019 | Chronic [...]
--- OUTSIDE RECORDS SUMMARY | ~2019-12-30 | XMS | Encounter Summary ---
Demographics + + + | Address | [address] | | | [place] [address] | + + + | Home Phone | | + + + | Preferred Language | Unknown | + + + | Marital Status | Single | + + + | Jain Affiliation | NRP | + + + [...] Team Providers + +------+ + | Care Consulting Intern Name | Role | Phone | + +------+ + | Meagan Ayala MD | PCP | | + +------+ + Encounter Details +--------+ + + + + | Date | Type | Department | Care Team | Description | +--------+ + + + + | 10/24/ | MyChart | [facility] [facility] | Erik Lambert | RE:(No subject) | | 2019 | Encounter | Center at [facility] [address] | NMD [address] | | | | | [address] | [address] | | | | | for Health and | [facility] [place] | | | | | Healing, Building 1, | [address] | | | | | 5th Floor | [phone] | | | | | [place], [place] | | | | | | [address] | | | | | | [phone] | | | +--------+ + + + [...] 2020 | marcus-Pool | | MD Jacoby [address] | | | | giovany | | [address] | | | | | | [place], [place] | | | | | | [address] | | | | | | [phone] | | | | | | | | +--------+ + + + + documented as of this encounter Visit Diagnoses Not on filedocumented in this encounter"
--- OUTSIDE RECORDS SUMMARY | ~2019-12-30 | XMS | Encounter Summary ---
Demographics + + + | Address | [address] | | | [place] [address] | + + + | Home Phone [...] Team Providers + +------+ + | Care Biological Photographer Name | Role | Phone | + [...] | | | | | Procedures | [facility] | [place] for | | | | | CONSULT TO | Rd | Health and | | | | | ENT SINUS | [place], [place] | Healing, | | | | | | [address] | Building 1, | | | | | | Phone: | 5th Floor | | | | | | [phone] | [place], [place] | | | | | | Fax: | [address] | | | | | | [phone] | Phone: | | | | | | | [phone] | | | | | | | Fax: | | | | | | | [phone] | +--------+--------+ + + + + Encounter Details +--------+---------+ + + + | Date | Type | Department | Care Team | Description | +--------+---------+ + + + | 03/15/ | Office | [place] [facility] | Erik Lambert | Chronic pansinusitis | | 2019 | Visit | Center at [facility] [address] | MD Jacoby [address] | (Primary Dx); Polyp | | | | [address] | [address] | of nasal cavity | | | | for Health and | [place], [place] | | | | | [place], Building 1, | [address] | | | | | 5th Floor | [phone] | | | | | [place], [place] | | | | | | [address] | | | | | | [phone] | | | +--------+---------+ + + + [...] Randhawa MD - 03/15/2019 9:30 AM PDT [facility] INTERVAL HISTORY: Last seen 02/15/19 [...] 63 y.o. female who presents to the [facility] i n consultation for CRSwNP. She was referred by her family practicioner after a visit on for her CRSwNP. Dr. Rai Singh performed her surgery in October 2017. She reports she was told she had param yps and "fungus" removed from her sinuses. Her most recent CT a few months ago at [facility]. 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 Ad chin strap sewer 30 to 60 minutes before meals Oregano [...] up one month after her trip from [place]. Radha Randhawa MD Otolaryngology, PGY-4 Pager [phone] I have personally seen and examined the [...] 2020 | ealth-Sched | | MD Jacoby [address] | | | | uled | | [address] | | | | | | [place], [place] | | | | | | [address] | | | | | | [phone] | | | | | | | | +--------+ + + + + documented as of this encounter Procedures + +--------+ + + + | Procedure Name | Priori | Date/Time | Associated Diagnosis | Comments | | | ty | | | | + +--------+ + + + | [place] NASAL | Routin | 03/15/2019 | Chronic [...]
--- OUTSIDE RECORDS SUMMARY | ~2019-12-30 | XMS | Encounter Summary ---
Demographics + + + | Address | [address] | | | [place] [address] | + + + | Home Phone [...] Team Providers + +------+ + | Care Tabulating Clerk Name | Role | Phone | [...] as of this encounter Progress Notes Interface, Genomics Scientist In - 12/13/2005 3:11 AM [facility] [place] [facility] and [place] [address], [place] [address] or April 30, 2002 Nivia Lin M.D. Department of Surgery, [facility], [place] [address] RE: HELEN MCKEON MR #: [id number] Dear Juanita: Just a brief note to [...] New Year. Yours sincerely, Mika Mitchell M.D. [facility] / [id number] / [id number] / [id number] / [id number] cc: Rosendo Jones M.D. [address] [place], [place] [address]Noipxyfkerxvik signed by Interface, Genomics Scientist In at 12/13/2005 3:11 AM PDTdocumented in this encounter Plan of Treatment +--------+ + + + + | Date | Type | Specialty | Care Team | Description | +--------+ + + + + | 11/27/ | Video/TeleH | Otolaryngology | Erik Lambert | | | 2020 | anah-Sched | | MD Jacoby [address] | | | | giovany | | [facility] 5 | | | | | | [place] | | | | | | [address] | | | | | | [phone] | | | | | | | | +--------+ + + + + documented as of this encounter Visit Diagnoses Not on filedocumented in this encounter"
--- OUTSIDE RECORDS SUMMARY | ~2019-12-30 | XMS | Encounter Summary ---
Demographics + + + | Address | [address] | | | [place] [address] | + + + | Home Phone [...] Team Providers + +------+ + | Care Exercise Physiologist Certified Name | Role | Phone | + [...] | | | | | | | [place], [place] | | | | | | | [address] | | | | | | | Phone: | | | | | | | [phone] | | | | | | | Fax: | | | | | | | [phone] | + +--------+ + + + + Encounter Details +--------+---------+ + + + | Date | Type | Department | Care Team | Description | +--------+---------+ + + + | 11/24/ | Office | [place] [facility] | Erik Lambert | Chronic pansinusitis | | 2019 | Visit | Center at [facility] [address] | N[address] | (Primary Dx) | | | | [address] | [address] | | | | | for Health and | [place], [place] | | | | | Healing, Building 1, | [address] | | | | | [address] [place] [address] | [phone] | | | | | [place], [place] | | | | | | [address] | | | | | | [phone] | | | +--------+---------+ + + + [...] Erik Lambert MD - 11/25/2019 9:00 AM [facility] HISTORY: Helen Bray is a 63 y.o. female who presents to the [facility] for f ollow up of Chronic rhinosinusitis. She is s/p revision FESS 02/07/19. She was last seen 07/05/19. She moved to [place] 6 weeks ago and has been [...] female who presents to the [facility] for follow up of Chronic rhinosinusitis.She is doing very well. PLAN: -Continue budesonide rinses BID and finish course of azithromycin -Follow up with virtual visit in 1 year, or earlier if issues arise -May transition care for Dr. Randhawa in [place] after next visit We have spent at [id number] time in counseling on the disease process, [...] 5 | | | | | | [place], [place] | | | | | | [address] | | | | | | [phone] | | | | | | | | +--------+ + + + + documented as of this encounter Procedures + +--------+ + + + | Procedure Name | Priori | Date/Time | Associated Diagnosis | Comments | | | ty | | | | + +--------+ + + + | [place] NASAL | Routin | 11/25/2019 | Chronic [...]
--- OUTSIDE RECORDS SUMMARY | ~2019-12-30 | XMS | Encounter Summary ---
Demographics + + + | Address | [address] | | | [place] [address] | + + + | Home Phone [...] Providers + +------+ + | Care Director Consumer Affairs Name | Role | Phone | + +------+ + | Meagan Ayala MD | PCP | | + +------+ + Encounter Details +--------+ + + + + | Date | Type | Department | Care Team | Description | +--------+ + + + + | 12/01/ | Pharmacy | Pharmacy @ [facility] | | | | 2020 | Visit | [facility] [address] | | | | | | [address] Mailcode: | | | | | | [facility] | | | | | | and Healing, | | | | | | Building [address] | | | | | | [place], [place] | | | | | | [address] | | | +--------+ + + + [...] [place] | | | | | | [address] | | | | | | [phone] | | | | | | | | +--------+ + + + + documented as of this encounter Visit Diagnoses Not on filedocumented in this encounter"
--- OUTSIDE RECORDS SUMMARY | ~2019-12-30 | XMS | Encounter Summary ---
Demographics + + + | Address | [address] | | | [place] [address] | + + + | Home Phone [...] Team Providers + +------+ + | Care Cement Gun Operator Name | Role | Phone | [...] + + | 02/07/ | Surgery | [facility] INTRA [facility] | Erik Lambert | BILATERAL MAXILLARY | | 2018 | | [facility] | MD Jacoby [address] | ANTROSTOMY WITH | | | | and Healing Surgery | [address] | TISSUE REMOVAL, | | | | Center Admitting | [place], [place] | BILATERAL TOTAL | | | | Desk Located on the | [address] | ETHMOIDECTOMY, | | | | 4th floor [address] | [phone] | BILATERAL FRONTAL | | | | [address] [place], | | SINUSOTOMY, | | | | [place] [address] | | BILATERAL | | | | [...] your nose to shrink the blood vessels. [place] 3 puffs to the affected nostril(s ) and then gently pinch the nose for 10 minutes. If this does not relieve the bleeding or if the bleeding is more significant, please call the hospital yardage control operator and ask for the ENT doc tor urologic surgeon. If extensive bleeding occurs, please call 911 [...] yogurt or acidop hilus tablets (available at [employer] food stores) on a daily basis may [...] For questions or concerns please call the [facility]'s office Thursday-Thursday from 8 am-5pm at [phone]. For urgent or emergent questions at night and on weekends please [place] [phone] and ask to page the ENT resident urologic surgeon. Additional Instructions Diana Rainey RN - 02/07/2019General [...] hours, weekends and holidays, call the Hospital Waiter[facility] at [phone] and asked to have the doctor who is oncall for your doctor to be paged to your phone number. [facility] for SCOPOLAMINE PATCH Follow the [...] 5 | | | | | | [place], [place] | | | | | | [address] | | | | | | [phone] | | | | | | | [...] (H) | 70 - 99 mg/dL | [facility], | | | GLUCOSE, | | | [...] | [facility] | [address] | [place] [address] | | | OF CARE TESTS | [...] | | | | | | number [id number]. | | | | | | Sinus, [...] light | | | | | | decalcification.([facility] | | | | | | 2) [...] + | Performing | Address | City/[facility] | Phone Number | | Organization | | | | + + + + + | [facility] | [address] | [place] [address] | | | PATHOLOGY | [address] [...] + | [facility] - | [address] | [place] [address] | | | [place] | | | | + + + [...]
[~2019-12-30 20:24] MED LIST: ACTOS30 MG PO; ASPIRIN EC81 MG PO; LOSARTAN POTAS100 MG PO; MELOXICAM7.5 MG PO; PAXIL40 MG PO; PHENTERMINE HCL30 MG PO; SIMVASTATIN20 MG PO; VICTOZA 2-0.6 MG/0.1 SUB-Q; WELLBUTRIN SR100 MG PO
[2019-12-30] MEDS ORDERED: ALTOPREV20 MG PO (20:38)
== END 2019-12-30 22:13 | disposition home or self-care (01) ==
LOC: ED 20:24
DX: T63.441A Toxic effect of venom of bees, accidental (unintentional), initial encounter (principal); E11.9 Type 2 diabetes mellitus without complications; Z88.6 Allergy status to analgesic agent; Z79.899 Other long term (current) drug therapy
CPT/HCPCS: 99282; Q0163

== ENCOUNTER 2020-12-09 19:49 | Emergency (ER) | payer OTHER ==
[~2020-12-09] VITALS: Ht 165.1 cm; Wt 83.9 kg
[~2020-12-09 19:49] MED LIST changes: +ALTOPREV20 MG PO
[2020-12-09] MEDS ORDERED: ESCITALOPRAM OX10 MG PO (20:04)
[2020-12-09] MEDS ORDERED: PIOGLITAZONE HC30 MG PO (20:04)
== END 2020-12-09 20:59 | disposition home or self-care (01) ==
LOC: ED 19:49
DX: S63.502A Unspecified sprain of left wrist, initial encounter (principal); W22.8XXA Striking against or struck by other objects, initial encounter; E11.9 Type 2 diabetes mellitus without complications; Z88.5 Allergy status to narcotic agent; Z79.899 Other long term (current) drug therapy
CPT/HCPCS: 73090; 73110; 99283-25

== ENCOUNTER 2021-06-27 17:06 | Emergency (ER) | payer OTHER ==
[~2021-06-27] VITALS: Ht 165.1 cm; Wt 88.5 kg
[~2021-06-27 17:06] MED LIST changes: +ESCITALOPRAM OX10 MG PO; +PIOGLITAZONE HC30 MG PO
[2021-06-27] MEDS ORDERED: VICTOZA 3-0.6 MG/0.1 SUB-Q (17:59)
[2021-06-27] MEDS ORDERED: TOUJEO MAX300 UNIT/1 SUB-Q (17:59)
[2021-06-27] MEDS ORDERED: OMEPRAZOLE40 MG PO (17:59)
[2021-06-27] MEDS ORDERED: ACYCLOVIR400 MG PO (17:59)
== END 2021-06-27 19:48 | disposition home or self-care (01) ==
LOC: ED 17:06
DX: U07.1 COVID-19 (principal); E11.9 Type 2 diabetes mellitus without complications; Z88.5 Allergy status to narcotic agent; Z79.899 Other long term (current) drug therapy; Z79.4 Long term (current) use of insulin
CPT/HCPCS: 71045; 94640; 94664; 99283-25; U0003

== ENCOUNTER 2023-04-06 16:08 | Emergency (ER) | payer MEDICARE, OTHER ==
[~2023-04-06] VITALS: Ht 165.1 cm; Wt 88.5 kg
[~2023-04-06 16:08] MED LIST changes: +ACYCLOVIR400 MG PO; +OMEPRAZOLE40 MG PO; +TOUJEO MAX300 UNIT/1 SUB-Q; +VICTOZA 3-0.6 MG/0.1 SUB-Q
[2023-04-06 16:29] LABS: BASOPHILS 0.8 % (0-2); EOSINOPHILS 1.1 % (0-6); HEMATOCRIT 39.1 % (35.0-50.0); HEMOGLOBIN 12.9 g/dL (12.0-18.0); LYMPHOCYTES 13.2 % (24-44); MCH 30.1 (27-36); MCHC 32.9 g/dl (30-36); MCV 91.6 fl (81-99); NEUTROPHILS 77.9 % (39-80); PLATELET COUNT 232 K/uL (140-440); RBC 4.27 M/ul (4.3-5.7); RDW 14.3 (10.5-15.0)
[2023-04-06 16:49] LABS: ALBUMIN 3.8 g/dL (3.4-5.0); ALBUMIN/GLOBULIN RATIO 1.15 (1.1-2.4); ANION GAP 12.9 (7-21); BILIRUBIN, TOTAL 0.3 ng/dL (0.2-1.0); BUN/CREATININE RATIO 32.45 (6.0-28.6); CALCIUM 9.2 mg/dL (8.5-10.1); CREATININE, SERUM 1.14 mg/dL (0.55-1.02); MAGNESIUM 1.7 mg/dL (1.8-2.4); POTASSIUM 3.9 mmol/L (3.5-5.1); PROTEIN, TOTAL 7.1 g/dL (6.4-8.2)
[2023-04-06 18:43] VITALS: BP 128/62
--- NOTE | 2023-04-07 15:08 | EKG ---
[facility] [address] [place], [place] [address] Signed Normal sinus rhythm Low voltage QRS Nonspecific T wave abnormality Abnormal ECG No previous ECGs available Confirmed by ULISES SHUKLA MD ([id number]) on 04/07/2023 3:08:01 PM Electronically Signed By: ULISES SHUKLA 04/07/23 1508 PATIENT NAME: HARISH SHAH Electrocardiogram DATE OF : 57 PHYSICIAN: ULISES SHUKLA REPORT #: [id number] REPORT IS CONFIDENTIAL AND NOT TO BE RELEASED WITHOUT AUTHORIZATION
== END 2023-04-06 18:44 | disposition home or self-care (01) ==
LOC: ED 16:08
PROVIDERS: Emergency Medicine
DX: R07.89 Other chest pain (principal); E11.9 Type 2 diabetes mellitus without complications; Z88.5 Allergy status to narcotic agent; Z79.899 Other long term (current) drug therapy; Z79.4 Long term (current) use of insulin
CPT/HCPCS: 36415; 71045; 80053; 83735; 84484; 85025; 93005; 93010; 99285-25; A9270